=== PATIENT | female | born 1965 | race Caucasian/White ===

== ENCOUNTER 2017-10-31 10:40 | Outpatient (CLI) | payer MEDICARE, MEDICAID, SELFPAY ==
[2017-10-31 10:30] VITALS: BP 122/78; PULSE 68; RESP 20; TEMP 36.9; O2SAT 98
[2017-10-31 10:56] VITALS: BMI 40.4
[2017-10-31 11:39] LABS: Basophils # 0.1 K/mm3 (0-0.2); Basophils % 0.2 % (0.1-2.0); Eosinophils # 0.5 K/mm3 (0.0-0.4); Eosinophils % 2.2 % (0.1-12.0); Hematocrit 41.6 % (37.0-47.0); Lymphocytes # 0.7 K/mm3 (0.7-4.5); Lymphocytes % 3.3 K/mm3 (10-50); Mean Corpuscular HGB Conc 31.4 g/dL (31.8-35.4); Mean Corpuscular Hemoglobin 27.9 pg (27.0-31.2); Mean Corpuscular Volume 88.9 fl (81-99); Mean Platelet Volume 8.3 fl (7.4-10.4); Monocytes % 4.8 % (1.7-9.3); Neutrophils # 18.8 K/mm3 (1.8-7.8); Neutrophils % 89.5 % (37.0-80.0); Platelet Count 311 K/mm3 (142-424); Red Blood Count 4.67 M/mm3 (4.20-5.40); Red Cell Distribution Width 13.9 % (11.5-17.5)
[2017-10-31 11:40] LABS: White Blood Count 21.1 K/mm3 (4.8-10.8)
[2017-10-31 11:43] LABS: MANUAL DIFFERENTIAL MANUAL DIFFERENTIAL (MANUAL DIFF)
[2017-10-31 11:57] LABS: Alanine Aminotransferase 48 U/L (12-78); Albumin Level 3.3 gm/dL (3.4-5.0); Albumin/Globulin Ratio 0.8 (1.1-1.8); Alkaline Phosphatase 115 U/L (46-116); Anion Gap 19.3 mEq/L (5-15); Aspartate Amino Transferase 58 U/L (15-37); Bilirubin,Total 0.3 mg/dL (0.2-1.0); Blood Urea Nitrogen 13 mg/dL (7-18); Carbon Dioxide 22 mmol/L (21.0-32.0); Chloride 100 mmol/L (98-107); Creatinine Clearance Estimated 104 mL/min (0-300); Creatinine,Serum 1.01 mg/dL (0.55-1.02); Estimated Glomerular Filt Rate 57 ml/min (>60); GFR (African American) 69 ML/MIN (>60); Glucose 207 mg/dL (74-106); Potassium 4.3 mmoL/L (3.5-5.1); Sodium 137 mmol/L (136-145); Total Protein,Serum 7.3 gm/dL (6.4-8.2)
[2017-10-31 12:04] LABS: Eosinophils % 4 % (0-3); Lymphocytes % 5 % (10-50); Monocytes % 2 % (2-9); Neutrophils % 87 % (42-76); Total Cells Counted 100
[2017-10-31 12:06] LABS: RBC Morphology Normal
[2017-10-31 12:07] LABS: Platelet Estimate Normal
== END 2017-10-31 10:50 | disposition home or self-care (01) ==
LOC: INF 11:29
PROVIDERS: Family Provider Family Medicine; PCP Family Medicine; Visit Provider Internal Medicine
DX: C85.89 Other specified types of non-Hodgkin lymphoma, extranodal and solid organ sites (principal)
CPT/HCPCS: 80053; 85007; 85025

== ENCOUNTER 2017-11-12 12:51 | Outpatient (CLI) | payer MEDICARE, MEDICAID, SELFPAY ==
[2017-11-12 12:51] VITALS: BMI 34.1
[2017-11-12 13:39] LABS: Basophils # 0.1 K/mm3 (0-0.2); Basophils % 0.5 % (0.1-2.0); Eosinophils # 0.7 K/mm3 (0.0-0.4); Eosinophils % 4.2 % (0.1-12.0); Hematocrit 37.7 % (37.0-47.0); Hemoglobin 12.2 g/dL (12.2-16.2); Lymphocytes # 2.4 K/mm3 (0.7-4.5); Lymphocytes % 13.8 K/mm3 (10-50); Mean Corpuscular HGB Conc 32.3 g/dL (31.8-35.4); Mean Corpuscular Hemoglobin 27.9 pg (27.0-31.2); Mean Corpuscular Volume 86.4 fl (81-99); Mean Platelet Volume 7.8 fl (7.4-10.4); Monocytes # 0.5 K/mm3 (0.1-1.0); Neutrophils # 13.5 K/mm3 (1.8-7.8); Neutrophils % 78.6 % (37.0-80.0); Platelet Count 357 K/mm3 (142-424); Red Blood Count 4.37 M/mm3 (4.20-5.40); Red Cell Distribution Width 13.9 % (11.5-17.5); White Blood Count 17.2 K/mm3 (4.8-10.8)
[2017-11-12 13:42] LABS: MANUAL DIFFERENTIAL MANUAL DIFFERENTIAL (MANUAL DIFF)
[2017-11-12 13:57] LABS: Alanine Aminotransferase 19 U/L (12-78); Albumin Level 3.2 gm/dL (3.4-5.0); Albumin/Globulin Ratio 0.7 (1.1-1.8); Alkaline Phosphatase 86 U/L (46-116); Anion Gap 14.5 mEq/L (5-15); Aspartate Amino Transferase 17 U/L (15-37); Bilirubin,Total 0.2 mg/dL (0.2-1.0); Blood Urea Nitrogen 17 mg/dL (7-18); Calcium 7.9 mg/dL (8.5-10.1); Carbon Dioxide 26 mmol/L (21.0-32.0); Chloride 102 mmol/L (98-107); Creatinine Clearance Estimated 69 mL/min (0-300); Creatinine,Serum 1.33 mg/dL (0.55-1.02); Estimated Glomerular Filt Rate 42 ml/min (>60); GFR (African American) 50 ML/MIN (>60); Globulin 4.6 gm/dl (1.3-3.2); Glucose 119 mg/dL (74-106); Lipase 336 u/L (73-393); Potassium 3.5 mmoL/L (3.5-5.1); Sodium 139 mmol/L (136-145); Total Protein,Serum 7.8 gm/dL (6.4-8.2)
[2017-11-12 14:39] LABS: Eosinophils % 3 % (0-3); Lymphocytes % 11 % (10-50); Monocytes % 2 % (2-9); Neutrophils % 84 % (42-76); Platelet Estimate Normal; RBC Morphology Normal; Total Cells Counted 100
== END 2017-11-12 13:27 | disposition home or self-care (01) ==
LOC: INF 12:51
PROVIDERS: Family Provider Family Medicine; PCP Family Medicine; Visit Provider Internal Medicine
DX: C85.93 Non-Hodgkin lymphoma, unspecified, intra-abdominal lymph nodes (principal); Z45.2 Encounter for adjustment and management of vascular access device; R10.9 Unspecified abdominal pain; R11.2 Nausea with vomiting, unspecified
CPT/HCPCS: 80053; 83690; 85007; 85025; J1642

== ENCOUNTER 2017-11-26 08:45 | Outpatient (CLI) | payer MEDICARE, MEDICAID, SELFPAY ==
[2017-11-26 08:49] VITALS: BMI 35.2
[2017-11-26 09:16] LABS: Basophils # 0.1 K/mm3 (0-0.2); Basophils % 0.6 % (0.1-2.0); Eosinophils # 0.6 K/mm3 (0.0-0.4); Eosinophils % 6.4 % (0.1-12.0); Hematocrit 32.8 % (37.0-47.0); Hemoglobin 10.6 g/dL (12.2-16.2); Lymphocytes # 2.4 K/mm3 (0.7-4.5); Lymphocytes % 24.8 K/mm3 (10-50); Mean Corpuscular HGB Conc 32.4 g/dL (31.8-35.4); Mean Corpuscular Hemoglobin 28.3 pg (27.0-31.2); Mean Corpuscular Volume 87.4 fl (81-99); Mean Platelet Volume 7.4 fl (7.4-10.4); Monocytes # 0.5 K/mm3 (0.1-1.0); Monocytes % 5.5 % (1.7-9.3); Neutrophils # 6.2 K/mm3 (1.8-7.8); Neutrophils % 62.7 % (37.0-80.0); Platelet Count 263 K/mm3 (142-424); Red Blood Count 3.76 M/mm3 (4.20-5.40); Red Cell Distribution Width 14.3 % (11.5-17.5); White Blood Count 9.9 K/mm3 (4.8-10.8)
--- NOTE | 2017-11-26 09:21 | CT_ITS ---
CT abdomen pelvis w con CLINICAL INDICATION: lymphoma, abdominal pain, nausea and vomiting ITS.REASON: ABD LYMPHOMA, LEUKOCYSTOSIS, ABD PAIN, N/V ORDERING PHYSICIAN: Yue Bonilla PATIENT AGE: 52 years COMPARISON: 04/03/2017 TECHNIQUE: Axial images obtained with sagittal and coronal reformats. PROCEDURE: Oral Contrast: Redicat IV Contrast: 75 mL's of Isovue-370. FINDINGS: Lung bases are clear. Prior cholecystectomy with minimal prominence of the biliary radicles and common bile duct may be in response to the cholecystectomy change from 620 11/19/2017. Spleen, adrenal glands, and pancreas have an unremarkable appearance. There are few small lymph nodes present in the portal region this measures 2 x 1 cm and is unchanged. The kidneys have an unremarkable appearance. No obstructing renal or ureteral calculi. Unremarkable appendix. No intestinal obstruction or free air no evidence of diverticulitis. Postsurgical changes are present involving the anterior abdominal wall. There is narrowing of the rectosigmoid junction. This could be due to nondistention. There has been a prior hysterectomy. No pelvic mass or focal inflammatory change. Unremarkable appearing urinary bladder No acute bony anomalies. Bulging discs present at L5-S1. IMPRESSION: 1. No acute abdominal findings. 2. No change 2 x 1 cm portal lymph node 3. Narrowing of the rectosigmoid junction. This millimeters due to nondistention. Barium enema or sigmoidoscopy may aid to exclude a lesion at this area if clinically warranted.
[2017-11-26 09:31] LABS: Alanine Aminotransferase 27 U/L (12-78); Albumin Level 3.1 gm/dL (3.4-5.0); Albumin/Globulin Ratio 0.8 (1.1-1.8); Alkaline Phosphatase 94 U/L (46-116); Anion Gap 13.7 mEq/L (5-15); Aspartate Amino Transferase 14 U/L (15-37); Bilirubin,Total 0.1 mg/dL (0.2-1.0); Blood Urea Nitrogen 13 mg/dL (7-18); Calcium 7.9 mg/dL (8.5-10.1); Carbon Dioxide 26 mmol/L (21.0-32.0); Chloride 103 mmol/L (98-107); Creatinine Clearance Estimated 83 mL/min (0-300); Creatinine,Serum 1.11 mg/dL (0.55-1.02); Estimated Glomerular Filt Rate 51 ml/min (>60); GFR (African American) 62 ML/MIN (>60); Glucose 100 mg/dL (74-106); Lipase 203 u/L (73-393); Potassium 3.7 mmoL/L (3.5-5.1); Sodium 139 mmol/L (136-145); Total Protein,Serum 7.1 gm/dL (6.4-8.2)
--- NOTE | 2017-11-26 10:20 | HMH.ITSHM ---
TRAMADOL,OMEPRAZOLE,FUROSEIMIE 'AMITRIPTYLINE,ASPIRIN LORATADINE LOSARTIN POTASSIUM ATORVASTATIN ALENDRONATE METFORMIN LEVETIRACETAM MECLIZINE RIATRIPATN DICLOFENAC FLUTICASONE PROMETHAZINE ONDANSTERERAN
== END 2017-11-26 10:35 | disposition home or self-care (01) ==
LOC: INF 09:00
PROVIDERS: Family Provider Family Medicine; PCP Family Medicine; Visit Provider Nurse Practitioner
DX: C85.89 Other specified types of non-Hodgkin lymphoma, extranodal and solid organ sites (principal); R10.84 Generalized abdominal pain; R11.2 Nausea with vomiting, unspecified
CPT/HCPCS: 74177; 80053; 83690; 85025; J1642; Q9967

== ENCOUNTER 2017-12-22 12:17 | Outpatient (CLI) | payer MEDICARE, MEDICAID, SELFPAY ==
[2017-12-22 12:11] VITALS: BMI 35.6
[2017-12-22 12:37] LABS: Blood Urea Nitrogen 8 mg/dL (7-18); Creatinine Clearance Estimated 92 mL/min (0-300); Creatinine,Serum 1.04 mg/dL (0.55-1.02); Estimated Glomerular Filt Rate 55 ml/min (>60); GFR (African American) 67 ML/MIN (>60)
--- NOTE | 2017-12-22 13:45 | CT_ITS ---
CT chest w con Ordering Physician: Yue Bonilla Patient Age: 52 years: Female HISTORY: ITS.REASON: ABDOMINL LYMPHOMA S/P CHEMO, NEW PULMONARY NODULES Lymphoma. Follow-up following chemotherapy. TECHNIQUE: Helical CT scanning performed through the chest following to 5 cc Isovue-370. COMPARISON :March 2017. LEFT LUNG Progression of the left lower lobe nodule since March 2017. It now measures a just over 12 mm size and is clearly more evident on all views. (Axial slice 45, sagittal 84, coronal 53) and there Low-density pleural effusion versus some minimal fatty pleural thickening towards the posterior sulcus and left base. Stable feature. Mild left basal atelectasis at posterior sulcus. Right lung. Stable with no significant new findings. No significant nodules identified on the right. Previous studies noted questionable 3 mm nodule at the RML. This is faintly seen on axial slice 40 & appears stable since previous study 2016. Likely exaggerated by adjacent branching vessel . Not felt to be a significance . No mediastinal mass or adenopathy. Coronary artery calcification is evident LAD and circumflex artery. No pericardial effusion. Great vessels satisfactory. Port-A-Cath overlies left chest.. Borderline to mild airway thickening again noted mild interstitial coarsening throughout with early emphysematous changes suggested. But no axillary adenopathy. The uppermost abdomen. No prominent findings. Mild fatty changes of liver IMPRESSION: 1. Definite progression of left lower lobe nodule since March 2017 CT chest. This nodule now measures just over 12 mm maximally. 2. Remainder the chest stable. No acute findings Developing emphysematous changes No mediastinal nor hilar adenopathy coronary artery calcification.
== END 2017-12-22 13:15 | disposition home or self-care (01) ==
LOC: RAD 12:18
PROVIDERS: Family Provider Family Medicine; PCP Family Medicine; Visit Provider Nurse Practitioner
DX: R91.1 Solitary pulmonary nodule (principal); D64.9 Anemia, unspecified; K62.4 Stenosis of anus and rectum
CPT/HCPCS: 71260; 82565; 84520; J1642; Q9967

== ENCOUNTER → 2018-01-20 09:33 | Outpatient (CLI) | payer MEDICARE, MEDICAID, SELFPAY ==
--- NOTE | 2018-01-20 09:38 | MM_ITS ---
MM Dig screening mamm BI w/CAD CAD Screening COMPARISON: Digital mammograms 04/16/2017 and 04/05/2016 INDICATION: There is a history breast cancer patient's mother and 2 maternal aunts. TECHNIQUE: Standard CC and MLO images were obtained. R2 CAD reviewed. FINDINGS: The breasts are composed primarily of fat with minimal scattered fibroglandular densities in each breast. There is arterial calcification in each breast as noted previously. There are scattered benign-appearing calcifications in each breast. There is no suspicious lesion and there are no suspicious microcalcifications. The Mediport catheter is again seen overlying the axillary tail left breast. IMPRESSION: Fibrofatty parenchyma with no suspicious lesion seen BI-RADS Category: 2 Benign Finding(s) RECOMMENDED FOLLOW-UP: 1YR - 1 YEAR FOLLOW-UP (A letter has been sent to the patient regarding results of the study.)
== END ==
PROVIDERS: Family Provider Family Medicine; PCP Family Medicine; Visit Provider Internal Medicine
DX: Z12.31 Encounter for screening mammogram for malignant neoplasm of breast (principal)
CPT/HCPCS: 77067

== ENCOUNTER 2018-01-20 10:05 | Outpatient (CLI) | payer MEDICARE, MEDICAID, SELFPAY | END 2018-01-20 10:20 | disposition home or self-care (01) | LOC: INF 16:28 | PROVIDERS: Family Provider Family Medicine; PCP Family Medicine; Visit Provider Internal Medicine | DX: Z45.2 Encounter for adjustment and management of vascular access device (principal); Z12.31 Encounter for screening mammogram for malignant neoplasm of breast | CPT/HCPCS: 77067; 96523; J1642 ==

== ENCOUNTER → 2018-02-11 10:00 | Outpatient (CLI) | payer MEDICARE, MEDICAID, SELFPAY ==
[2018-02-11 10:00] VITALS: BP 118/74; PULSE 104; RESP 20; TEMP 36.8; O2SAT 97
[2018-02-11 10:02] VITALS: BMI 35.6
[2018-02-11 10:30] VITALS: BP 118/74; PULSE 104; RESP 18; TEMP 36.8; O2SAT 97
[2018-02-11 10:40] LABS: Basophils # 0.1 K/mm3 (0-0.2); Basophils % 0.5 % (0.1-2.0); Eosinophils # 0.4 K/mm3 (0.0-0.4); Eosinophils % 4.4 % (0.1-12.0); Hematocrit 33.4 % (37.0-47.0); Hemoglobin 10.7 g/dL (12.2-16.2); Lymphocytes # 1.6 K/mm3 (0.7-4.5); Lymphocytes % 15.6 K/mm3 (10-50); Mean Corpuscular HGB Conc 32.1 g/dL (31.8-35.4); Mean Corpuscular Hemoglobin 27.3 pg (27.0-31.2); Mean Platelet Volume 7.6 fl (7.4-10.4); Monocytes # 0.5 K/mm3 (0.1-1.0); Monocytes % 4.9 % (1.7-9.3); Neutrophils # 7.5 K/mm3 (1.8-7.8); Neutrophils % 74.7 % (37.0-80.0); Platelet Count 254 K/mm3 (142-424); Red Blood Count 3.93 M/mm3 (4.20-5.40)
[2018-02-11 10:43] LABS: Anion Gap 14.9 mEq/L (5-15); Blood Urea Nitrogen 18 mg/dL (7-18); Carbon Dioxide 27 mmol/L (21.0-32.0); Chloride 101 mmol/L (98-107); Creatinine Clearance Estimated 111 mL/min (0-300); Creatinine,Serum 0.86 mg/dL (0.55-1.02); Estimated Glomerular Filt Rate 69 ml/min (>60); GFR (African American) 83 ML/MIN (>60); Glucose 132 mg/dL (74-106); Potassium 3.9 mmoL/L (3.5-5.1); Sodium 139 mmol/L (136-145)
[2018-02-11 10:53] LABS: INR 1.01 (0.9-1.1); Prothrombin Time 10.9 seconds (9.4-11.8)
[2018-02-11 10:56] LABS: Activated Partial Thrombo Time 65.9 seconds (23.6-34.0)
== END ==
PROVIDERS: Family Provider Family Medicine; PCP Family Medicine; Visit Provider Internal Medicine
DX: C83.30 Diffuse large B-cell lymphoma, unspecified site (principal); R91.8 Other nonspecific abnormal finding of lung field; R06.02 Shortness of breath; Z00.00 Encounter for general adult medical examination without abnormal findings
CPT/HCPCS: 80048; 85025; 85610; 85730; J1642

== ENCOUNTER 2018-03-25 10:40 | Outpatient (CLI) | payer MEDICARE, SELFPAY ==
[2018-03-25 11:02] VITALS: BMI 34.8
[2018-03-25 11:11] LABS: Basophils % 0.4 % (0.1-2.0); Eosinophils # 0.7 K/mm3 (0.0-0.4); Eosinophils % 6.2 % (0.1-12.0); Hematocrit 37.1 % (37.0-47.0); Hemoglobin 11.4 g/dL (12.2-16.2); Lymphocytes # 1.8 K/mm3 (0.7-4.5); Lymphocytes % 15.5 K/mm3 (10-50); Mean Corpuscular HGB Conc 30.8 g/dL (31.8-35.4); Mean Corpuscular Hemoglobin 25.6 pg (27.0-31.2); Mean Corpuscular Volume 83.3 fl (81-99); Mean Platelet Volume 7.4 fl (7.4-10.4); Monocytes # 0.5 K/mm3 (0.1-1.0); Neutrophils # 8.4 K/mm3 (1.8-7.8); Neutrophils % 73.9 % (37.0-80.0); Platelet Count 328 K/mm3 (142-424); Red Blood Count 4.46 M/mm3 (4.20-5.40); Red Cell Distribution Width 14.2 % (11.5-17.5); White Blood Count 11.4 K/mm3 (4.8-10.8)
[2018-03-25 11:19] LABS: Alanine Aminotransferase 15 U/L (12-78); Albumin Level 3.2 gm/dL (3.4-5.0); Albumin/Globulin Ratio 0.7 (1.1-1.8); Alkaline Phosphatase 90 U/L (46-116); Anion Gap 17.4 mEq/L (5-15); Aspartate Amino Transferase 11 U/L (15-37); Bilirubin,Total 0.1 mg/dL (0.2-1.0); Blood Urea Nitrogen 23 mg/dL (7-18); Calcium 8.6 mg/dL (8.5-10.1); Carbon Dioxide 25 mmol/L (21.0-32.0); Chloride 102 mmol/L (98-107); Creatinine Clearance Estimated 64 mL/min (0-300); Creatinine,Serum 1.45 mg/dL (0.55-1.02); Estimated Glomerular Filt Rate 38 ml/min (>60); GFR (African American) 46 ML/MIN (>60); Globulin 4.4 gm/dl (1.3-3.2); Glucose 122 mg/dL (74-106); Potassium 3.4 mmoL/L (3.5-5.1); Sodium 141 mmol/L (136-145); Total Protein,Serum 7.6 gm/dL (6.4-8.2)
== END 2018-03-25 10:55 | disposition home or self-care (01) ==
LOC: INF 11:34
PROVIDERS: Family Provider Family Medicine; PCP Family Medicine; Visit Provider Internal Medicine
DX: C85.90 Non-Hodgkin lymphoma, unspecified, unspecified site (principal)
CPT/HCPCS: 80053; 85025; J1642

== ENCOUNTER → 2018-03-25 12:39 | Outpatient (CLI) | payer MEDICARE, MEDICAID, SELFPAY ==
[2018-03-25 12:42] LABS: Microscopic, Urine URINE MICROSCOPIC (MICROSCOPIC)
[2018-03-25 12:58] LABS: Appearance,Urine CLEAR (Clear); Bilirubin,Urine Negative (Negative); Blood, Urine Negative (Negative); Color,Urine YELLOW (Yellow); Glucose,Urine (UA) Negative (Negative); Ketones,Urine Negative (Negative); Leukocyte Esterase,Urine 1+ (Negative); Nitrate,Urine Negative (Negative); PH,Urine 5.5 (5.0-8.5); Protein,Urine Negative (Negative); Urobilinogen,Urine 0.2 EU/dl (0.2)
[2018-03-25 13:50] LABS: Bacteria,Urine 1+ /lpf
== END ==
PROVIDERS: Visit Provider Nurse Practitioner
DX: R11.2 Nausea with vomiting, unspecified (principal); D72.829 Elevated white blood cell count, unspecified; N28.9 Disorder of kidney and ureter, unspecified
CPT/HCPCS: 80053; 81001; 85025; 87086; J1642

== ENCOUNTER 2018-04-29 11:20 | Outpatient (CLI) | payer MEDICARE, MEDICAID, SELFPAY ==
[2018-04-29 11:41] VITALS: BMI 34.1
[2018-04-29 12:01] LABS: Basophils # 0.1 K/mm3 (0-0.2); Basophils % 0.4 % (0.1-2.0); Eosinophils # 0.7 K/mm3 (0.0-0.4); Eosinophils % 6.1 % (0.1-12.0); Hemoglobin 10.9 g/dL (12.2-16.2); Lymphocytes # 1.3 K/mm3 (0.7-4.5); Mean Corpuscular HGB Conc 31.1 g/dL (31.8-35.4); Mean Corpuscular Hemoglobin 26.3 pg (27.0-31.2); Mean Corpuscular Volume 84.4 fl (81-99); Mean Platelet Volume 7.4 fl (7.4-10.4); Monocytes # 0.5 K/mm3 (0.1-1.0); Neutrophils % 78.4 % (37.0-80.0); Platelet Count 282 K/mm3 (142-424); Red Blood Count 4.14 M/mm3 (4.20-5.40); Red Cell Distribution Width 15.5 % (11.5-17.5); White Blood Count 11.4 K/mm3 (4.8-10.8)
[2018-04-29 12:13] LABS: Alanine Aminotransferase 17 U/L (12-78); Albumin Level 3.2 gm/dL (3.4-5.0); Albumin/Globulin Ratio 0.7 (1.1-1.8); Alkaline Phosphatase 85 U/L (46-116); Anion Gap 16.6 mEq/L (5-15); Aspartate Amino Transferase 11 U/L (15-37); Bilirubin,Total 0.2 mg/dL (0.2-1.0); Blood Urea Nitrogen 16 mg/dL (7-18); Carbon Dioxide 25 mmol/L (21.0-32.0); Chloride 98 mmol/L (98-107); Creatinine Clearance Estimated 66 mL/min (0-300); Creatinine,Serum 1.38 mg/dL (0.55-1.02); Estimated Glomerular Filt Rate 40 ml/min (>60); GFR (African American) 48 ML/MIN (>60); Globulin 4.4 gm/dl (1.3-3.2); Glucose 126 mg/dL (74-106); Potassium 3.6 mmoL/L (3.5-5.1); Sodium 136 mmol/L (136-145); Total Protein,Serum 7.6 gm/dL (6.4-8.2)
== END 2018-04-29 11:40 | disposition home or self-care (01) ==
LOC: INF 11:34
PROVIDERS: Family Provider Family Medicine; PCP Family Medicine; Visit Provider Internal Medicine
DX: C85.90 Non-Hodgkin lymphoma, unspecified, unspecified site (principal); R11.2 Nausea with vomiting, unspecified; N18.9 Chronic kidney disease, unspecified; D72.829 Elevated white blood cell count, unspecified
CPT/HCPCS: 80053; 85025; J1642

== ENCOUNTER 2018-06-12 10:35 | Outpatient (CLI) | payer MEDICARE, MEDICAID, SELFPAY | END 2018-06-12 11:05 | disposition home or self-care (01) | LOC: INF 10:45 | PROVIDERS: PCP Family Medicine; Visit Provider Internal Medicine | DX: C85.80 Other specified types of non-Hodgkin lymphoma, unspecified site (principal); Z45.2 Encounter for adjustment and management of vascular access device | CPT/HCPCS: 96523; J1642 ==

== ENCOUNTER 2018-07-10 17:28 | Outpatient (CLI) | payer MEDICARE, MEDICAID, SELFPAY | END 2018-07-10 17:35 | disposition home or self-care (01) | LOC: INF 17:29 | PROVIDERS: Visit Provider Internal Medicine | DX: Z45.2 Encounter for adjustment and management of vascular access device (principal); C85.90 Non-Hodgkin lymphoma, unspecified, unspecified site | CPT/HCPCS: 96523; J1642 ==

== ENCOUNTER 2018-09-17 09:13 | Outpatient (CLI) | payer MEDICARE, MEDICAID, SELFPAY ==
[2018-09-17 09:15] VITALS: BMI 34.1
[2018-09-17 09:36] LABS: Basophils # 0.1 K/mm3 (0-0.2); Basophils % 0.4 % (0.1-2.0); Eosinophils # 0.7 K/mm3 (0.0-0.4); Hematocrit 33.5 % (37.0-47.0); Hemoglobin 10.3 g/dL (12.2-16.2); Lymphocytes # 1.7 K/mm3 (0.7-4.5); Lymphocytes % 12.9 % (10-50); Mean Corpuscular HGB Conc 30.9 g/dL (31.8-35.4); Mean Corpuscular Hemoglobin 25.9 pg (27.0-31.2); Mean Corpuscular Volume 83.9 fl (81-99); Mean Platelet Volume 6.6 fl (7.4-10.4); Monocytes # 0.5 K/mm3 (0.1-1.0); Monocytes % 3.7 % (1.7-9.3); Neutrophils # 10.3 K/mm3 (1.8-7.8); Neutrophils % 78.1 % (37.0-80.0); Platelet Count 348 K/mm3 (142-424); Red Blood Count 3.99 M/mm3 (4.20-5.40); Red Cell Distribution Width 15.7 % (11.5-17.5); White Blood Count 13.2 K/mm3 (4.8-10.8)
[2018-09-17 09:51] LABS: Alanine Aminotransferase 29 U/L (12-78); Albumin Level 3.3 gm/dL (3.4-5.0); Albumin/Globulin Ratio 0.7 (1.1-1.8); Alkaline Phosphatase 90 U/L (46-116); Aspartate Amino Transferase 16 U/L (15-37); Bilirubin,Total 0.1 mg/dL (0.2-1.0); Blood Urea Nitrogen 14 mg/dL (7-18); Calcium 8.5 mg/dL (8.5-10.1); Carbon Dioxide 27 mmol/L (21.0-32.0); Chloride 100 mmol/L (98-107); Creatinine Clearance Estimated 77 mL/min (50-200); Creatinine,Serum 1.17 mg/dL (0.55-1.02); Estimated Glomerular Filt Rate 48 ml/min (>60); GFR (African American) 58 ML/MIN (>60); Globulin 4.6 gm/dl (1.3-3.2); Glucose 123 mg/dL (74-106); Sodium 139 mmol/L (136-145); Total Protein,Serum 7.9 gm/dL (6.4-8.2)
== END 2018-09-17 09:30 | disposition home or self-care (01) ==
LOC: INF 09:13
PROVIDERS: Visit Provider Internal Medicine Medical Oncology
DX: C85.93 Non-Hodgkin lymphoma, unspecified, intra-abdominal lymph nodes (principal)
CPT/HCPCS: 80053; 85025; J1642

== ENCOUNTER 2018-10-29 09:46 | Outpatient (CLI) | payer MEDICARE, MEDICAID, SELFPAY | END 2018-10-29 09:55 | disposition home or self-care (01) | LOC: INF 09:46 | PROVIDERS: Visit Provider Internal Medicine Medical Oncology | DX: C85.90 Non-Hodgkin lymphoma, unspecified, unspecified site (principal); Z45.2 Encounter for adjustment and management of vascular access device | CPT/HCPCS: 96523; J1642 ==

== ENCOUNTER 2018-12-16 10:08 | Outpatient (CLI) | payer MEDICARE, MEDICAID, SELFPAY | END 2018-12-16 10:10 | disposition home or self-care (01) | LOC: INF 10:09 | PROVIDERS: Visit Provider Internal Medicine Medical Oncology | DX: Z45.2 Encounter for adjustment and management of vascular access device (principal) | CPT/HCPCS: 96523; J1642 ==

== ENCOUNTER 2019-01-20 09:01 | Outpatient (CLI) | payer MEDICARE, MEDICAID, SELFPAY | END 2019-01-20 09:23 | disposition home or self-care (01) | LOC: INF 09:01 | PROVIDERS: Visit Provider Internal Medicine Medical Oncology | DX: Z45.2 Encounter for adjustment and management of vascular access device (principal) | CPT/HCPCS: 96523; J1642 ==

== ENCOUNTER 2019-02-26 09:44 | Outpatient (CLI) | payer MEDICARE, MEDICAID, SELFPAY | END 2019-02-26 09:55 | disposition home or self-care (01) | LOC: INF 09:44 | PROVIDERS: Visit Provider Internal Medicine Medical Oncology | DX: Z45.2 Encounter for adjustment and management of vascular access device (principal) | CPT/HCPCS: 96523; J1642 ==

== ENCOUNTER 2019-04-07 08:41 | Outpatient (CLI) | payer MEDICARE, MEDICAID, SELFPAY ==
[2019-04-07 08:58] VITALS: BP 118/77; PULSE 87; RESP 18; TEMP 36.6; O2SAT 98
[2019-04-07 09:37] VITALS: BMI 34.1
[2019-04-07 09:45] LABS: Basophils # 0.1 K/mm3 (0-0.2); Basophils % 0.6 % (0.1-2.0); Eosinophils # 0.5 K/mm3 (0.0-0.4); Hematocrit 33.9 % (37.0-47.0); Hemoglobin 10.1 g/dL (12.2-16.2); Lymphocytes # 1.7 K/mm3 (0.7-4.5); Lymphocytes % 11.1 % (10-50); Mean Corpuscular HGB Conc 29.7 g/dL (31.8-35.4); Mean Corpuscular Hemoglobin 24.9 pg (27.0-31.2); Mean Corpuscular Volume 83.8 fl (81-99); Mean Platelet Volume 7.1 fl (7.4-10.4); Monocytes # 0.4 K/mm3 (0.1-1.0); Monocytes % 2.9 % (1.7-9.3); Neutrophils # 12.3 K/mm3 (1.8-7.8); Neutrophils % 82.3 % (37.0-80.0); Platelet Count 463 K/mm3 (142-424); Red Blood Count 4.05 M/mm3 (4.20-5.40); White Blood Count 14.9 K/mm3 (4.8-10.8)
[2019-04-07 09:58] LABS: Alanine Aminotransferase 13 U/L (12-78); Albumin Level 2.9 gm/dL (3.4-5.0); Albumin/Globulin Ratio 0.6 (1.1-1.8); Alkaline Phosphatase 70 U/L (46-116); Anion Gap 18.5 mEq/L (5-15); Aspartate Amino Transferase 11 U/L (15-37); Bilirubin,Total 0.1 mg/dL (0.2-1.0); Blood Urea Nitrogen 13 mg/dL (7-18); Calcium 8.4 mg/dL (8.5-10.1); Carbon Dioxide 23 mmol/L (21.0-32.0); Chloride 101 mmol/L (98-107); Creatinine Clearance Estimated 77 mL/min (50-200); Creatinine,Serum 1.17 mg/dL (0.55-1.02); Estimated Glomerular Filt Rate 48 ml/min (>60); GFR (African American) 58 ML/MIN (>60); Globulin 4.5 gm/dl (1.3-3.2); Glucose 91 mg/dL (74-106); Lactate Dehydrogenase 151 U/L (82-234); Potassium 3.5 mmoL/L (3.5-5.1); Sodium 139 mmol/L (136-145); Total Protein,Serum 7.4 gm/dL (6.4-8.2)
[2019-04-07 16:44] LABS: Ferritin 9 ng/mL (8-388); Thyroid Stimulating Hormone 1.75 uIU/ml (0.358-3.740)
[2019-04-09 11:34] LABS: Vitamin B12 236 pg/mL (232-1245)
[2019-04-09 14:18] LABS: Iron 30 ug/dL (27-159); UIBC 298 ug/dL (131-425)
[2019-04-09 18:13] LABS: Iron Saturation 9 % (15-55)
[2019-04-10 18:35] LABS: Folate 4.3 ng/mL (>3.0)
== END 2019-04-07 09:35 | disposition home or self-care (01) ==
LOC: INF 08:41
PROVIDERS: Nurse Practitioner; Visit Provider Internal Medicine Medical Oncology
DX: C83.30 Diffuse large B-cell lymphoma, unspecified site (principal); D64.9 Anemia, unspecified; R53.83 Other fatigue; R51 Headache
CPT/HCPCS: 80053; 82607; 82728; 82746; 83540; 83550; 83615; 84443; 85025; J1642

== ENCOUNTER 2019-05-05 09:40 | Outpatient (CLI) | payer MEDICARE, MEDICAID, SELFPAY | END 2019-05-05 09:55 | disposition home or self-care (01) | LOC: INF 09:49 | PROVIDERS: Visit Provider Internal Medicine Medical Oncology | DX: Z45.2 Encounter for adjustment and management of vascular access device (principal) | CPT/HCPCS: 96523; J1642 ==

== ENCOUNTER 2019-06-01 08:46 | Inpatient (IN) ==
--- NOTE | 2019-06-01 09:15 | Emergency Department Note ---
ED Disposition Clinical Impression: Seizure disorder, Poorly controlled diabetes mellitus, Sepsis Disposition: Admitted As Inpatient Condition on Discharge: Serious Referrals: Spenser Gee [Primary Care Provider] - - Critical Care Critical Care Time: No Attestation: On 06/01/19, the high probability of a clinically significant, sudden or life threatening deterioration of the following system(s) required my full and direct attention, intervention and personal management. The time I documented below is in addition to time spent performing reported procedures but includes the following listed in this critical care notation. Medical Decision Making - Domenico Inquiry Pt receiving controlled substance: No Domenico was queried for this patient: No Vital Signs: 06/01/19 08:48 06/01/19 09:07 06/01/19 09:57 Temperature 98.1 F Temperature Source Oral Pulse Rate [Right Brachial] 148 H 90 156 H Respiratory Rate 19 Blood Pressure [Right Arm] 77/51 L 133/74 85/50 L Blood Pressure Mean [Right Arm] 59 93 61 Blood Pressure Source [Right Arm] Manual Cuff/ Doppler Automatic Cuff Automatic Cuff Blood Pressure Position [Right Arm] Supine Sitting Supine 02 Sat by Pulse Oximetry 95 97 95 Oxygen Delivery Method Nasal Cannula Room Air Nasal Cannula Oxygen Flow Rate (LPM) 2 2 06/01/19 10:33 06/01/19 10:45 06/01/19 11:05 Temperature Temperature Source Pulse Rate [Right Brachial] 144 H 144 H 145 H Respiratory Rate Blood Pressure [Right Arm] 94/60 L 104/64 L 104/71 L Blood Pressure Mean [Right Arm] 71 77 82 Blood Pressure Source [Right Arm] Automatic Cuff Automatic Cuff Automatic Cuff Blood Pressure Position [Right Arm] Supine Supine Supine 02 Sat by Pulse Oximetry 90 L 90 L Oxygen Delivery Method Nasal Cannula Nasal Cannula Oxygen Flow Rate (LPM) 2 2 06/01/19 11:37 06/01/19 11:53 Temperature Temperature Source Pulse Rate [Right Brachial] 148 H 145 H Respiratory Rate Blood Pressure [Right Arm] 117/74 112/79 Blood Pressure Mean [Right Arm] 88 90 Blood Pressure Source [Right Arm] Automatic Cuff Automatic Cuff Blood Pressure Position [Right Arm] Sitting Supine 02 Sat by Pulse Oximetry 90 L 90 L Oxygen Delivery Method Nasal Cannula Nasal Cannula Oxygen Flow Rate (LPM) 2 2 - Lab Data Lab Results 06/01/19 09:00: WBC 24.3 H*, RBC 5.05, Hgb 13.1, Hct 49.7 H, MCV 98.6, MCH 25.9 L, MCHC 26.3 L, RDW 17.5, Plt Count 680 H, MPV 7.7, Neut % (Auto) 69.3, Lymph % (Auto) 25.4, [place] % (Auto) 4.0, Eos % (Auto) 0.4, Baso % (Auto) 0.9, Neut # (Auto) 16.9 H, Lymph # (Auto) 6.2 H, [place] # (Auto) 1.0, Eos # (Auto) 0.1, Baso # (Auto) 0.2, Total Counted 100, Neutrophils % (Manual) 65, Band Neutrophils % 1.0, Lymphocytes % (Manual) 32, Monocytes % (Manual) 1 L, Eosinophils % (Manual) 1, Platelet Estimate Clumped, Hypochromasia 1+, Anisocytosis 1+, Macrocytosis 1+ 06/01/19 09:00: Sodium 144, Potassium 3.6, Chloride 92 L, Carbon Dioxide 9 L*, Anion Gap 46.6 H, BUN 13, Creatinine 2.24 H, Estimated Creat Clear 45, Estimated GFR 23 L, Est GFR ( Amer) 27 L, Glucose 358 H, Calcium 9.3, Total Bilirubin 0.1 L, AST 15, ALT 12, Alkaline Phosphatase 100, Troponin I 0.03, Total Protein 8.9 H, Albumin 3.3 L, Globulin 5.6 H, Albumin/Globulin Ratio 0.6 L 06/01/19 10:21: Urine Color Yellow, Urine Appearance Clear, Urine pH 5.5, Ur Specific [place] >= 1.030, Urine Protein 2+, Urine Glucose (UA) Negative, Urine Ketones 2+, Urine Blood Negative, Urine Nitrate Negative, Urine Bilirubin Negative, Urine Urobilinogen 0.2, Ur Leukocyte Esterase Negative, Urine RBC Occasional, Urine WBC 3-5, Ur Squamous Epith Cells 10-20, Urine Bacteria 1+ 06/01/19 11:03: Lactate 10.4 H Result diagrams: 06/01/19 09:00 06/01/19 09:00 Orders (Tests/Meds): ED MEDICATIONS Generic Name Dose Route Start Last Admin Trade Name Freq PRN Reason Stop Dose Admin Sodium Chloride 1,000 mls @ 999 mls/hr 06/01/19 11:45 Sod Chlor 0.9% 1000ml Bag IV 06/01/19 12:45 .Q1H1M GLEN Ceftriaxone Sodium 1 gm/ 50 mls @ 100 mls/hr 06/01/19 11:45 06/01/19 11:50 Sodium Chloride IV 06/15/19 11:44 100 mls/hr Q24H GLEN Administration Protocol Sodium Chloride 10 ml 06/01/19 10:38 Saline Flush 10ml Syringe IV 07/01/19 10:37 NEEDED PRN Maintain IV Site Sodium Chloride 2 ml 06/01/19 10:38 Saline Flush 10ml Syringe IV 07/01/19 10:37 NEEDED PRN to Dilute Lorazepam inj Discontinued Medications Generic Name Dose Route Start Last Admin Trade Name Freq PRN Reason Stop Dose Admin Diltiazem HCl 15 mg 06/01/19 09:40 06/01/19 10:07 Cardizem 125mg/25ml Vial IV 06/01/19 09:41 15 mg ONCE ONE Administration Diltiazem HCl 10 mg 06/01/19 10:05 06/01/19 10:07 Cardizem 125mg/25ml Vial IV 06/01/19 10:06 10 mg ONCE ONE Administration Sodium Chloride 1,000 mls @ 999 mls/hr 06/01/19 09:15 06/01/19 09:15 Sod Chlor 0.9% 1000ml Bag IV 06/01/19 10:15 999 mls/hr .Q1H1M ONE Administration Sodium Chloride 1,000 mls @ 999 mls/hr 06/01/19 10:10 06/01/19 10:10 Sod Chlor 0.9% 1000ml Bag IV 06/01/19 11:10 999 mls/hr .Q1H1M ONE Administration Lorazepam 2 mg 06/01/19 10:01 06/01/19 10:40 Ativan 2mg/Ml Vial IV 06/01/19 10:02 2 mg ONCE ONE Administration Ondansetron HCl 4 mg 06/01/19 11:50 06/01/19 11:51 Zofran 4mg/2ml Vial IV 06/01/19 11:51 4 mg ONCE ONE Administration ORDERS Category Date Time Status CXR --portable [XR chest portable] Stat Exams 06/01/19 10:59 Taken Levetiracetam (Keppra) Stat Lab 06/01/19 09:00 Received Blood Culture Stat Micro 06/01/19 11:03 Received General Adult HPI - General Chief complaint: Neuro Symptoms/Deficit Stated complaint: stroke alert Time Seen by Provider: 06/01/19 09:11 Source of Information: Patient Limitations: Altered Mental Status - History of Present Illness HPI narrative: The patient is a 54-year-old female who has had serious problems in the past with mentation. The patient is in a [facility] institution. Patient had a large stroke sometime ago. The patient had a seizure approximately 2 weeks ago. The patient had a seizure this morning while her was standing and another while she was in the emergency room. Patient is on medications, Keppra, for procedure of the shoulder but this seems poorly controlled. The patient comes in and is diaphoretic and seizing. Onset (ago): hour(s) - Related Data Home Medications Medication Instructions Recorded Confirmed alendronate 35 mg tablet 35 mg PO QWEEK 11/12/17 06/01/19 amitriptyline 50 mg tablet 100 mg PO QHS tab 11/12/17 06/01/19 aspirin 325 mg tablet 325 mg PO QDAY 11/12/17 06/01/19 atorvastatin 40 mg tablet 40 mg PO QDAY 11/12/17 06/01/19 furosemide 40 mg tablet 20 mg PO QDAY 11/12/17 06/01/19 levetiracetam 750 mg tablet 750 mg PO Q12H 11/12/17 06/01/19 losartan 50 mg tablet 50 mg PO QDAY 11/12/17 06/01/19 meclizine 12.5 mg tablet 12.5 mg PO TID tab 11/12/17 06/01/19 metformin 500 mg tablet 1,000 mg PO BID 11/12/17 06/01/19 omeprazole 20 mg capsule,delayed 20 mg PO QDAY 11/12/17 06/01/19 release tramadol 50 mg tablet 50 mg PO BID tab 11/12/17 06/01/19 cholecalciferol (vitamin D3) 1,000 1,000 unit PO DAILY 02/11/18 06/01/19 unit capsule fluoxetine 20 mg capsule 10 mg PO DAILY 09/17/18 06/01/19 Ondansetron HCl [Ondansetron 8mg 8 mg PO Q6HP PRN 05/05/19 06/01/19 Tablet] Promethazine HCl [Phenergan 25mg 25 mg PO Q6H PRN 05/05/19 06/01/19 tab] Propranolol HCl 10 mg PO BID 05/05/19 06/01/19 SUMAtriptan succinate [Sumatriptan 50 mg PO Q6 PRN 05/05/19 06/01/19 Succinate] Allergies Allergy/AdvReac Type Severity Reaction Status Date / Time tetanus and diphtheria Allergy Unknown Verified 04/07/19 09:42 toxoids [TETANUS & DIPHTHERIA TOXOIDS] [facility] History - Hepatitis A Screen Attestation statement:: This patient has been screened for Hepatitis A risk factors. Medical History: Reports:: Cancer, Chronic Obstructive Pulmonary Disease (COPD), Diabetes Mellitus Type 2, Hyperlipidemia, Seizures Other Medical History: Reports: Radiation Therapy Laterality Cases: Other Surgeries: Yes: Hernia Repair, Hysterectomy-Total, Hysterectomy-Partial Amputation: No Fractures: No Comment: ovarian cyst removal, gallbladder, bladder surgery - Social History Smoking Status: Former smoker #Yrs smoked (if former smoker): 30 Alcohol Intake: never Substance Use Type: denies use Occupational Status: disabled Housing: other Household Members: spouse, children Family Hx:: Cancer ROS Obtained: Yes All systems reviewed & no additional complaints Physical Exam - General General appearance: lethargic - Chest Chest inspection: Present: normal inspection - Respiratory Respiratory exam: Present: normal lung sounds bilaterally - Cardiovascular Cardiovascular exam: Present: regular rate - Neurological Exam Neurological exam: Present: other (Patient had active seizures on admission. Ativan was given. Patient's Keppra will be increased. The patient is postictal at this time)
[2019-06-01 09:25] LABS: Basophils # 0.2 K/mm3 (0-0.2); Basophils % 0.9 % (0.1-2.0); Eosinophils # 0.1 K/mm3 (0.0-0.4); Eosinophils % 0.4 % (0.1-12.0); Hematocrit 49.7 % (37.0-47.0); Hemoglobin 13.1 g/dL (12.2-16.2); Lymphocytes # 6.2 K/mm3 (0.7-4.5); Lymphocytes % 25.4 % (10-50); Mean Corpuscular HGB Conc 26.3 g/dL (31.8-35.4); Mean Corpuscular Volume 98.6 fl (81-99); Mean Platelet Volume 7.7 fl (7.4-10.4); Neutrophils # 16.9 K/mm3 (1.8-7.8); Neutrophils % 69.3 % (37.0-80.0); Red Blood Count 5.05 M/mm3 (4.20-5.40); Red Cell Distribution Width 17.5 % (11.5-17.5); White Blood Count 24.3 K/mm3 (4.8-10.8)
[2019-06-01 09:39] LABS: Albumin Level 3.3 gm/dL (3.4-5.0); Albumin/Globulin Ratio 0.6 (1.1-1.8); Anion Gap 46.6 mEq/L (5-15); Bilirubin,Total 0.1 mg/dL (0.2-1.0); Calcium 9.3 mg/dL (8.5-10.1); Globulin 5.6 gm/dl (1.3-3.2); Total Protein,Serum 8.9 gm/dL (6.4-8.2)
[2019-06-01 09:42] LABS: Platelet Count 680 K/mm3 (142-424)
[2019-06-01 09:45] LABS: Anisocytosis 1+; Eosinophils % 1 % (0-3); Hypochromasia 1+; Lymphocytes % 32 % (10-50); Macrocytosis 1+; Monocytes % 1 % (2-9); Neutrophils % 65 % (42-76); Total Cells Counted 100
[2019-06-01 10:31] LABS: Appearance,Urine CLEAR (Clear); Blood, Urine Negative (Negative); Color,Urine YELLOW (Yellow); Glucose,Urine (UA) Negative (Negative); Ketones,Urine 2+ (Negative); Leukocyte Esterase,Urine Negative (Negative); Microscopic, Urine URINE MICROSCOPIC (MICROSCOPIC); PH,Urine 5.5 (5.0-8.5); Protein,Urine 2+ (Negative); Specific Gravity, Urine >= 1.030 (1.005-1.030); Urobilinogen,Urine 0.2 EU/dl (0.2)
[2019-06-01 10:48] LABS: Bacteria,Urine 1+ /lpf; Bilirubin,Urine Negative (Negative); RBC,Urine Occasional #/hpf (0-3)
--- NOTE | 2019-06-01 12:26 | Sepsis Event Note ---
Tissue Perfusion Evaluation Sepsis Re-Evaluation Performed: Yes Date Performed: 06/01/19 Time Performed: 12:24 Sepsis Follow-Up: Yes: Respiratory exam, Cardiovascular exam, Capillary refill, Peripheral pulse strength, Peripheral pulse location, Skin exam, Vital Signs (Hyperglycemia, seizure disorder poorly controlled, blood count due seizure) Most Recent Vital Signs: Temperature 98.1 F 06/01/19 09:07 Temperature Source Oral 06/01/19 09:07 Pulse Rate 149 H 06/01/19 12:18 Respiratory Rate 19 06/01/19 09:07 Blood Pressure 110/80 06/01/19 12:18 Blood Pressure Mean 90 06/01/19 12:18 Blood Pressure Source Automatic Cuff 06/01/19 12:18 Blood Pressure Position Sitting 06/01/19 12:18 02 Sat by Pulse Oximetry 94 L 06/01/19 12:18 Oxygen Delivery Method 06/01/19 12:18 Oxygen Flow Rate (LPM) 2 06/01/19 12:18
--- NOTE | 2019-06-01 13:49 | History & Physical Report ---
*Admission Date: 06/01/19 *Chief complaint: seizure *History of present illness: Ms. dee a 54-year-old female with complicated past medical history of leukemia, left-sided paralysis, seizure disorder who presented to the ER due to onset of seizure today at home. She lives with her and daughter in [facility] and has been sick off and on for the past several weeks. They report that she was recently admitted to [facility] with similar episode, uncontrolled retching, seizure, infection/sepsis, inability to keep p.o. fluids. Was able to restart eating and was discharged home. Soon after getting home has been unable to keep down any food or fluids or medications. For the past 3 to 4 days she has been retching uncontrollably with no p.o. intake and had no meds in the past 2 days. This led to her onset of seizure today leading to her presentation to the ER. In the ER she was noted to have significantly elevated lactate, tachycardia, ANNALISE with creatinine of 2.2 (baseline presumed normal), and leukocytosis. Patient was initiated on ceftriaxone, has received 3 L bolus IV f luids, and antiemetics. Admitted to medicine for seizure disorder and sepsis. After being assessed on the floor, patient has been noted to continue to be tachycardic throughout the afternoon. Has developed a fever greater than 101. Continues to remain unable to tolerate oral intake with retching every 5 to 10 minutes. Emesis is nonproductive at this time. Patient remains tachycardic in sinus tachycardia. Planes of nausea, vomiting. Denies diarrhea. In place of abdominal pain. Denies headache. Denies chest pain. Shortness of breath worse than baseline. [facility] History I have reviewed the patient's past medical history: Yes Medical History: Reports:: Cancer, Chronic Obstructive Pulmonary Disease (COPD), Diabetes Mellitus Type 2, Hyperlipidemia, Seizures *Have you ever received a pneumonia vaccine?: No *Have you received a flu vaccine this season?: No Other Medical History: Reports: Radiation Therapy Laterality Cases: Other Surgeries: Yes: Hernia Repair, Hysterectomy-Total, Hysterectomy-Partial Amputation: No Fractures: No - *Social History Smoking Status: Former smoker #Yrs smoked (if former smoker): 30 Alcohol Intake: never Substance Use Type: denies use *Occupational Status:: disabled Housing: other Household Members: spouse, children *Travel in the last 8 weeks: None Family Hx:: Cancer Review of Systems - Review of Systems Review of systems:: pertinent systems reviewed and negative unless documented below Meds Home Medications Medication Instructions Recorded Confirmed Type alendronate 35 mg tablet 35 mg PO QWEEK 11/12/17 06/01/19 History amitriptyline 50 mg tablet 100 mg PO QHS tab 11/12/17 06/01/19 History aspirin 325 mg tablet 325 mg PO QDAY 11/12/17 06/01/19 History atorvastatin 40 mg tablet 40 mg PO HS 11/12/17 06/01/19 History furosemide 40 mg tablet 20 mg PO QDAY 11/12/17 06/01/19 History levetiracetam 750 mg tablet 750 mg PO Q12H 11/12/17 06/01/19 History meclizine 12.5 mg tablet 12.5 mg PO TID tab 11/12/17 06/01/19 History metformin 500 mg tablet 1,000 mg PO BID 11/12/17 06/01/19 History omeprazole 20 mg capsule,delayed 20 mg PO QDAY 11/12/17 06/01/19 History release tramadol 50 mg tablet 50 mg PO BID tab 11/12/17 06/01/19 History cholecalciferol (vitamin D3) 1,000 1,000 unit PO DAILY 02/11/18 06/01/19 History unit capsule fluoxetine 20 mg capsule 10 mg PO DAILY 09/17/18 06/01/19 History Ondansetron HCl [Ondansetron 8mg 8 mg PO Q6HP PRN 05/05/19 06/01/19 History Tablet] Promethazine HCl [Phenergan 25mg 25 mg PO Q6H PRN 05/05/19 06/01/19 History tab] Propranolol HCl 10 mg PO BID 05/05/19 06/01/19 History SUMAtriptan succinate [Sumatriptan 50 mg PO Q6 PRN 05/05/19 06/01/19 History Succinate] Allergies Allergy/AdvReac Type Severity Reaction Status Date / Time tetanus and diphtheria Allergy Severe Hives Verified 06/01/19 14:36 toxoids [TETANUS & DIPHTHERIA TOXOIDS] Exam Vital signs and Labs for Last 24 Hours: Temp Pulse Resp BP Pulse Ox 99.3 F 150 H 20 127/94 H 97 06/01/19 13:33 06/01/19 13:33 06/01/19 13:33 06/01/19 13:33 06/01/19 13:33 Laboratory Results - last 24 hr 06/01/19 09:00: WBC 24.3 H*, RBC 5.05, Hgb 13.1, Hct 49.7 H, MCV 98.6, MCH 25.9 L, MCHC 26.3 L, RDW 17.5, Plt Count 680 H, MPV 7.7, Neut % (Auto) 69.3, Lymph % (Auto) 25.4, [place] % (Auto) 4.0, Eos % (Auto) 0.4, Baso % (Auto) 0.9, Neut # (Auto) 16.9 H, Lymph # (Auto) 6.2 H, [place] # (Auto) 1.0, Eos # (Auto) 0.1, Baso # (Auto) 0.2, Total Counted 100, Neutrophils % (Manual) 65, Band Neutrophils % 1.0, Lymphocytes % (Manual) 32, Monocytes % (Manual) 1 L, Eosinophils % (Manual) 1, Platelet Estimate Clumped, Hypochromasia 1+, Anisocytosis 1+, Macrocytosis 1+ 06/01/19 09:00: Sodium 144, Potassium 3.6, Chloride 92 L, Carbon Dioxide 9 L*, Anion Gap 46.6 H, BUN 13, Creatinine 2.24 H, Estimated Creat Clear 45, Estimated GFR 23 L, Est GFR ( Amer) 27 L, Glucose 358 H, Calcium 9.3, Total Bilirubin 0.1 L, AST 15, ALT 12, Alkaline Phosphatase 100, Troponin I 0.03, Total Protein 8.9 H, Albumin 3.3 L, Globulin 5.6 H, Albumin/Globulin Ratio 0.6 L 06/01/19 10:21: Urine Color Yellow, Urine Appearance Clear, Urine pH 5.5, Ur Specific [place] >= 1.030, Urine Protein 2+, Urine Glucose (UA) Negative, Urine Ketones 2+, Urine Blood Negative, Urine Nitrate Negative, Urine Bilirubin Negative, Urine Urobilinogen 0.2, Ur Leukocyte Esterase Negative, Urine RBC Occasional, Urine WBC 3-5, Ur Squamous Epith Cells 10-20, Urine Bacteria 1+ 06/01/19 11:03: Lactate 10.4 H I & O for Last 24 hours: Intake & Output 05/29/19 05/30/19 05/31/19 06/01/19 23:59 23:59 23:59 23:59 Weight 80.195 kg - Constitutional moderate distress, obese - *Routine HEENT Exam Head: Present: normocephalic Eye: Present: EOMI, PERRL ENT: Present: mucous membranes moist - *Routine Neck Exam Present: supple. Absent: lymphadenopathy - *Routine Respiratory Exam Present: CTA bilaterally - *Routine Cardiovascular Exam Present: tachycardia. Absent: murmur - *Routine Abdominal Exam Present: soft, normoactive bowel sounds, tenderness (Diffuse). Absent: rebound, guarding - *Routine Rectal Exam Patient deferred: visual exam - *Routine Exam Patient deferred: external exam - *Routine Extremities Exam Absent: cyanosis, clubbing, edema - *Routine Skin Exam Present: intact, warm. Absent: cyanosis, erythema, rash - *Routine Neurological Exam Present: alert, oriented X3. Absent: altered mental status Left-sided paralysis, flaccid Assessment and Plan (1) Severe sepsis Current visit: Yes Status: Acute Category: Medical Code(s): A41.9 - Sepsis, unspecified organism; R65.20 - Severe sepsis without septic shock Unclear etiology at this time. UC pending, BC pending. Continue broad spectrum abx. Broadened after arrival to the floor. S/p 3l NS bolus. Repeat 3L boluses with LR. Lactate improving. Suspect tachycardia related to sepsis and volume depletion after failed conversion of suspected SVT with Adenosine. (2) Mixed acid base balance disorder Current visit: Yes Status: Acute Category: Medical Code(s): E87.4 - Mixed disorder of acid-base balance secondary to metabolic acidosis AG on arrival >40. with inadequate respiratory compensation and respiratory acidosis on concurrent metabolic alkalosis. Suspect patient's emesis led to dehydration and metabolic alkalosis leading to dehydration, ANNALISE, elevated lactate and metabolic acidosis, all in the setting of chronic respiratory failure and elevated pCO2 with respiratory acidosis. will continue to treat emesis aggressively. Fluid resuscitation and sepsis treatment. Monitor for improvement with correction of underlying disease processes. (3) Poorly controlled diabetes mellitus Current visit: Yes Status: Chronic Category: Medical Code(s): E11.65 - Type 2 diabetes mellitus with hyperglycemia SSI and FSGS ACHS (4) Seizure disorder Current visit: Yes Status: Chronic Category: Medical Code(s): G40.909 - Epilepsy, unspecified, not intractable, without status epilepticus complicated by inability to take meds. IV replacement while unable to tolerate PO intake (5) Hypokalemia Current visit: Yes Status: Acute Category: Medical Code(s): E87.6 - Hypokalemia replace aggressively. Suspected secondary to emesis (6) Acute renal failure Current visit: Yes Status: Acute Category: Medical Code(s): N17.9 - Acute kidney failure, unspecified due to dehydration, monitor for improvement with fluid resuscitation (7) Emesis, persistent Current visit: Yes Status: Acute Category: Medical Code(s): R11.10 - Vomiting, unspecified failed zofran, phenergan. John trial reglan and decadron. Initiate PPI due to emesis and stress. - Assessment and plan all Dx Assessment and Plan for all problems:: Pt severely ill. Continues to require ICU level care. Full code
[2019-06-01 15:34] LABS: ABG Base Excess 4.9 mmol/L (-2.4-2.3); ABG HCO3 28.6 mmhg (22.0-26.0); ABG Oxygen Saturation 94 % (90-100); ABG PCO2 40.6 mmhg (35.0-45.0); ABG PH 7.47 mmol/L (7.35-7.45); ABG PO2 76.7 mmhg (80-100); ABG TCO2 29.9 mmhg (23-27)
[2019-06-01 15:36] LABS: Allen's Test ACCEPTABLE; Oxygen 1LPM %
--- NOTE | 2019-06-01 15:58 | Electrocardiograph Report ---
APPROVED REPORT Exam: Resting ECG HR:154 bpm ECG Measurements Heart Rate 154 AXES QRSd 78 QRS -37 QT 346 T83 QTc 554 <Conclusion> Atrial fibrillation with rapid ventricular response with a competing junctional pacemaker with premature ventricular or aberrantly conducted complexes Left axis deviation Low voltage QRS Abnormal ECG Electronically signed by : Jimenez Mead, 06/01/2019 15:57:38
--- NOTE | 2019-06-01 15:59 | Electrocardiograph Report ---
APPROVED REPORT Exam: Resting ECG HR:148 bpm ECG Measurements Heart Rate 148 AXES QRSd 84 QRS 5 QT 344 T81 QTc 540 <Conclusion> Supraventricular tachycardia Low voltage QRS Cannot rule out Anterior infarct, age undetermined Abnormal ECG Electronically signed by : Jimenez Mead, 06/01/2019 15:58:39
[2019-06-01 18:20] LABS: Anion Gap 21.7 mEq/L (5-15); Calcium 8.4 mg/dL (8.5-10.1)
[2019-06-01 20:32] LABS: Albumin Level 2.8 gm/dL (3.4-5.0); Bilirubin,Direct 0.1 mg/dL (0.0-0.2); Bilirubin,Indirect 0.2 mg/dL (0.0-0.9); Bilirubin,Total 0.3 mg/dL (0.2-1.0); Total Protein,Serum 7.8 gm/dL (6.4-8.2)
[2019-06-02 07:15] LABS: Basophils % 0.1 % (0.1-2.0); Eosinophils % 0.1 % (0.1-12.0); Hematocrit 35.9 % (37.0-47.0); Lymphocytes # 1.6 K/mm3 (0.7-4.5); Mean Corpuscular HGB Conc 30.6 g/dL (31.8-35.4)
[2019-06-02 07:25] LABS: Lymphocytes % 7.6 % (10-50); Mean Corpuscular Volume 85.1 fl (81-99); Mean Platelet Volume 7.4 fl (7.4-10.4); Monocytes # 1.3 K/mm3 (0.1-1.0); Monocytes % 5.8 % (1.7-9.3); Neutrophils # 18.5 K/mm3 (1.8-7.8); Neutrophils % 86.5 % (37.0-80.0); Platelet Count 386 K/mm3 (142-424); Red Blood Count 4.22 M/mm3 (4.20-5.40); Red Cell Distribution Width 18.5 % (11.5-17.5); White Blood Count 21.4 K/mm3 (4.8-10.8)
[2019-06-02 07:35] LABS: Albumin Level 2.3 gm/dL (3.4-5.0); Albumin/Globulin Ratio 0.6 (1.1-1.8); Anion Gap 14.9 mEq/L (5-15); Bilirubin,Total 0.3 mg/dL (0.2-1.0); Globulin 4.1 gm/dl (1.3-3.2); Total Protein,Serum 6.4 gm/dL (6.4-8.2)
--- NOTE | 2019-06-02 07:35 | Pharmacy Consult Notes ---
[facility] Pharmacy VTE Monitoring - Patient Demographics Admission date: 06/02/19 Report Date: 06/02/19 Time: 07:35 Allergies/Adverse Reactions: Patient Allergies tetanus and diphtheria toxoids [TETANUS & DIPHTHERIA TOXOIDS] Allergy (Severe, Verified 06/01/19 14:36) Hives Height: 1.63 m Weight: 86.999 kg Patient Problems: Current Active Problems Seizure disorder (Chronic) Poorly controlled diabetes mellitus (Chronic) Sepsis (Acute) Severe sepsis (Acute) Mixed acid base balance disorder (Acute) Hypokalemia (Acute) Acute renal failure (Acute) Emesis, persistent (Acute) - VTE Risk Labs: VTE Related Lab Results Hgb 13.1 g/dL (12.2-16.2) 06/01/19 09:00 Hct 49.7 % (37.0-47.0) H 06/01/19 09:00 Plt Count 680 K/mm3 (142-424) H 06/01/19 09:00 BUN 14 mg/dL (7-18) 06/01/19 18:00 Creatinine 1.80 mg/dL (0.55-1.02) H 06/01/19 18:00 Estimated Creat Clear 44 mL/min (50-200) 06/01/19 18:00 Was VTE Risk Assessment Performed: Yes VTE Score: 9 VTE Risk Level: Moderate Risk Clinical Trial Participant: No - Prophylaxis VTE Prophylaxis Ordered?: Yes Types of VTE Prophylaxis: TEDS Knee High
--- NOTE | 2019-06-02 07:35 | Progress Note ---
Internal Medicine - PN: Subj *Date: 06/02/19 *Time: 07:32 Interval history: Overall patient is alert, states that she continues to feel poorly, but denies abdominal pain or swelling. States that her nausea is somewhat better after NG tube was placed yesterday. Patient had 600 mL's of fluid from the NG tube immediately on insertion according to nursing staff. She continues to feel bloated and like she needs to pass flatus but has not had gas or bowel movement. Exam Vital signs and Labs for Last 24 Hours: Temp Pulse Resp BP Pulse Ox 99.4 F 130 H 21 159/69 H 92 L 06/02/19 04:18 06/02/19 06:00 06/02/19 06:00 06/02/19 06:00 06/02/19 06:00 Laboratory Results - last 24 hr 06/01/19 09:00: WBC 24.3 H*, RBC 5.05, Hgb 13.1, Hct 49.7 H, MCV 98.6, MCH 25.9 L, MCHC 26.3 L, RDW 17.5, Plt Count 680 H, MPV 7.7, Neut % (Auto) 69.3, Lymph % (Auto) 25.4, [place] % (Auto) 4.0, Eos % (Auto) 0.4, Baso % (Auto) 0.9, Neut # (Auto) 16.9 H, Lymph # (Auto) 6.2 H, [place] # (Auto) 1.0, Eos # (Auto) 0.1, Baso # (Auto) 0.2, Total Counted 100, Neutrophils % (Manual) 65, Band Neutrophils % 1.0, Lymphocytes % (Manual) 32, Monocytes % (Manual) 1 L, Eosinophils % (Manual) 1, Platelet Estimate Clumped, Hypochromasia 1+, Anisocytosis 1+, Macrocytosis 1+ 06/01/19 09:00: Sodium 144, Potassium 3.6, Chloride 92 L, Carbon Dioxide 9 L*, Anion Gap 46.6 H, BUN 13, Creatinine 2.24 H, Estimated Creat Clear 45, Estimated GFR 23 L, Est GFR ( Amer) 27 L, Glucose 358 H, Calcium 9.3, Total Bilirubin 0.1 L, AST 15, ALT 12, Alkaline Phosphatase 100, Troponin I 0.03, Total Protein 8.9 H, Albumin 3.3 L, Globulin 5.6 H, Albumin/Globulin Ratio 0.6 L 06/01/19 10:21: Urine Color Yellow, Urine Appearance Clear, Urine pH 5.5, Ur Spe cific [place] >= 1.030, Urine Protein 2+, Urine Glucose (UA) Negative, Urine Ketones 2+, Urine Blood Negative, Urine Nitrate Negative, Urine Bilirubin Negative, Urine Urobilinogen 0.2, Ur Leukocyte Esterase Negative, Urine RBC Occasional, Urine WBC 3-5, Ur Squamous Epith Cells 10-20, Urine Bacteria 1+ 06/01/19 11:03: Lactate 10.4 H 06/01/19 15:13: Specimen Source R radial, O2 % 1lpm, ABG pH 7.47 H, ABG pCO2 40.6, ABG pO2 76.7 L, ABG HCO3 28.6 H, ABG Total CO2 29.9 H, ABG O2 Saturation 94, ABG Base Excess 4.9 H, Feliz Test Acceptable 06/01/19 15:20: POC Glucose 175 H 06/01/19 15:23: Lactate 2.5 H 06/01/19 15:23: Hemoglobin A1c 6.1 06/01/19 15:23: Acetone Level Small 06/01/19 15:23: Magnesium 2.0 06/01/19 15:40: POC Glucose 159 H 06/01/19 18:00: Sodium 144, Potassium 2.7 L* D, Chloride 98, Carbon Dioxide 27 D, Anion Gap 21.7 H, BUN 14, Creatinine 1.80 H, Estimated Creat Clear 44, Estimated GFR 29 L, Est GFR ( Amer) 35 L D, Glucose 199 H D, Calcium 8.4 L, Total Bilirubin 0.3, Direct Bilirubin 0.1, Indirect Bilirubin 0.2, AST 46 H D , ALT 11 L, Alkaline Phosphatase 86, Total Protein 7.8, Albumin 2.8 L D 06/01/19 18:00: Lactate 2.7 H 06/01/19 20:27: POC Glucose 229 H 06/02/19 05:52: POC Glucose 163 H I & O for Last 24 hours: Intake & Output 05/30/19 05/31/19 06/01/19 06/02/19 11:59 11:59 11:59 11:59 Intake Total 6563.833 / 6563.833 Output Total 790 / 790 Balance 5773.833 / 5773.833 Weight 225 lb 191 lb 12.8 oz Narrative: Patient is alert, responsive. Pleasant. Communicative. Oropharynx clear. NG tube in good position. Lungs have good air movement. Heart rate regular. Abdomen is distended but soft, 1+ peripheral edema. Skin turgor is good. No visible rashes. Able to move extremities well. Assessment and Plan (1) Severe sepsis Current visit: Yes Status: Acute Category: Medical Code(s): A41.9 - Sepsis, unspecified organism; R65.20 - Severe sepsis without septic shock (2) Mixed acid base balance disorder Current visit: Yes Status: Acute Category: Medical Code(s): E87.4 - Mixed disorder of acid-base balance (3) Poorly controlled diabetes mellitus Current visit: Yes Status: Chronic Category: Medical Code(s): E11.65 - Type 2 diabetes mellitus with hyperglycemia (4) Seizure disorder Current visit: Yes Status: Chronic Category: Medical Code(s): G40.909 - Epilepsy, unspecified, not intractable, without status epilepticus (5) Hypokalemia Current visit: Yes Status: Acute Category: Medical Code(s): E87.6 - Hypokalemia (6) Acute renal failure Current visit: Yes Status: Acute Category: Medical Code(s): N17.9 - Acute kidney failure, unspecified (7) Emesis, persistent Current visit: Yes Status: Acute Category: Medical Code(s): R11.10 - Vomiting, unspecified - Assessment and plan all Dx Assessment and Plan for all problems:: Plan will be to continue broad-spectrum IV antibiotics today. Follow electrolytes this morning as labs still pending. Recheck abdominal film after NG tube placed for ileus. I will ask on-call surgeon to evaluate case, consider noncontrast CT scan Continue fluid support and watch acid-base status carefully.
[2019-06-02 07:45] LABS: Calcium 7.5 mg/dL (8.5-10.1)
--- NOTE | 2019-06-02 08:51 | Consult Report ---
*Admission Date: 06/02/19 *Reason for consult:: Partial small bowel obstruction versus ileus *History of present illness: This is a 54-year-old female seen in consultation from Dr. Mead for evaluation regarding partial small bowel obstruction versus ileus. She has a complicated past medical history including leukemia, seizure disorder, and left-sided paralysis. She presented with increasing nausea/emesis over the past 3 weeks with some associated diarrhea. She was profoundly dehydrated with acute kidney injury and hypokalemia and was admitted to the intensive care unit for further evaluation and management. She continues to feel somewhat bloated but states that she "feels a little bit better" after nasogastric tube placement. No significant abdominal pain. She had a bowel movement yesterday and has had bowel movements fairly consistently until today. She is not sure of her most recent flatus; however, she has not passed flatus today. Review of Systems - Constitutional Denies excessive sweating - Eyes Denies double vision - ENT Denies change in voice - *Cardiovascular Denies chest pain - *Respiratory Denies cough - *Gastrointestinal Reports bloating, Reports nausea, Reports vomiting, Denies vomiting blood - *Genitourinary Denies painful urination - Psychiatric Denies anxiety - Hematologic/Lymphatic Denies easy bleeding [facility] History Medical History: Reports:: Cancer (non-hodgkins lymphoma in abdomen and (L) lung), Chronic Obstructive Pulmonary Disease (COPD), Diabetes Mellitus Type 2, Hyperlipidemia, Seizures Denies:: Diabetes Mellitus Type 1, MRSA *Have you ever received a pneumonia vaccine?: Yes *Have you received a flu vaccine this season?: Yes Other Medical History: Reports: Arthritis, Chemotherapy (2012 - 2014), Radiation Therapy (2018) Laterality Cases: Right: Carpal Tunnel Release Other Surgeries: Yes: Cholecystectomy, Colonoscopy, EGD, Hernia Repair (2 umbilical hernia repairs /c mesh), Hysterectomy-Total, Hysterectomy-Partial, Other (port placement) Amputation: No Fractures: No - *Social History Educational Level: Completed High School Smoking Status: Former smoker #Yrs smoked (if former smoker): 30 Smoking End Date: 08/07/2014 Alcohol Intake: never Substance Use Type: denies use *Occupational Status:: disabled Housing: other Household Members: spouse, children *Travel in the last 8 weeks: None Family Hx:: Cancer, Coronary Artery Disease, Heart Attack Meds Home Medications Medication Instructions Recorded Confirmed Type alendronate 35 mg tablet 35 mg PO QWEEK 11/12/17 06/01/19 History amitriptyline 50 mg tablet 100 mg PO QHS tab 11/12/17 06/01/19 History aspirin 325 mg tablet 325 mg PO QDAY 11/12/17 06/01/19 History atorvastatin 40 mg tablet 40 mg PO HS 11/12/17 06/01/19 History furosemide 40 mg tablet 20 mg PO QDAY 11/12/17 06/01/19 History levetiracetam 750 mg tablet 750 mg PO Q12H 11/12/17 06/01/19 History meclizine 12.5 mg tablet 12.5 mg PO TID tab 11/12/17 06/01/19 History metformin 500 mg tablet 1,000 mg PO BID 11/12/17 06/01/19 History omeprazole 20 mg capsule,delayed 20 mg PO QDAY 11/12/17 06/01/19 History release tramadol 50 mg tablet 50 mg PO BID tab 11/12/17 06/01/19 History cholecalciferol (vitamin D3) 1,000 1,000 unit PO DAILY 02/11/18 06/01/19 History unit capsule fluoxetine 20 mg capsule 10 mg PO DAILY 09/17/18 06/01/19 History Ondansetron HCl [Ondansetron 8mg 8 mg PO Q6HP PRN 05/05/19 06/01/19 History Tablet] Promethazine HCl [Phenergan 25mg 25 mg PO Q6H PRN 05/05/19 06/01/19 History tab] Propranolol HCl 10 mg PO BID 05/05/19 06/01/19 History SUMAtriptan succinate [Sumatriptan 50 mg PO Q6 PRN 05/05/19 06/01/19 History Succinate] Allergies Allergy/AdvReac Type Severity Reaction Status Date / Time tetanus and diphtheria Allergy Severe Hives Verified 06/01/19 14:36 toxoids [TETANUS & DIPHTHERIA TOXOIDS] Exam Vital signs and Labs for Last 24 Hours: Temp Pulse Resp BP Pulse Ox 99.4 F 130 H 21 159/69 H 92 L 06/02/19 04:18 06/02/19 06:00 06/02/19 06:00 06/02/19 06:00 06/02/19 06:00 Laboratory Results - last 24 hr 06/01/19 09:00: WBC 24.3 H*, RBC 5.05, Hgb 13.1, Hct 49.7 H, MCV 98.6, MCH 25.9 L, MCHC 26.3 L, RDW 17.5, Plt Count 680 H, MPV 7.7, Neut % (Auto) 69.3, Lymph % (Auto) 25.4, [place] % (Auto) 4.0, Eos % (Auto) 0.4, Baso % (Auto) 0.9, Neut # (Auto) 16.9 H, Lymph # (Auto) 6.2 H, [place] # (Auto) 1.0, Eos # (Auto) 0.1, Baso # (Auto) 0.2, Total Counted 100, Neutrophils % (Manual) 65, Band Neutrophils % 1.0, Lymphocytes % (Manual) 32, Monocytes % (Manual) 1 L, Eosinophils % (Manual) 1, Platelet Estimate Clumped, Hypochromasia 1+, Anisocytosis 1+, Macrocytosis 1+ 06/01/19 09:00: Sodium 144, Potassium 3.6, Chloride 92 L, Carbon Dioxide 9 L*, Anion Gap 46.6 H, BUN 13, Creatinine 2.24 H, Estimated Creat Clear 45, Estimated GFR 23 L, Est GFR ( Amer) 27 L, Glucose 358 H, Calcium 9.3, Total Bilirubin 0.1 L, AST 15, ALT 12, Alkaline Phosphatase 100, Troponin I 0.03, Total Protein 8.9 H, Albumin 3.3 L, Globulin 5.6 H, Albumin/Globulin Ratio 0.6 L 06/01/19 10:21: Urine Color Yellow, Urine Appearance Clear, Urine pH 5.5, Ur Specific [place] >= 1.030, Urine Protein 2+, Urine Glucose (UA) Negative, Urine Ketones 2+, Urine Blood Negative, Urine Nitrate Negative, Urine Bilirubin Negative, Urine Urobilinogen 0.2, Ur Leukocyte Esterase Negative, Urine RBC Occasional, Urine WBC 3-5, Ur Squamous Epith Cells 10-20, Urine Bacteria 1+ 06/01/19 11:03: Lactate 10.4 H 06/01/19 15:13: Specimen Source R radial, O2 % 1lpm, ABG pH 7.47 H, ABG pCO2 40.6, ABG pO2 76.7 L, ABG HCO3 28.6 H, ABG Total CO2 29.9 H, ABG O2 Saturation 94, ABG Base Excess 4.9 H, Feliz Test Acceptable 06/01/19 15:20: POC Glucose 175 H 06/01/19 15:23: Lactate 2.5 H 06/01/19 15:23: Hemoglobin A1c 6.1 06/01/19 15:23: Acetone Level Small 06/01/19 15:23: Magnesium 2.0 06/01/19 15:40: POC Glucose 159 H 06/01/19 18:00: Sodium 144, Potassium 2.7 L* D, Chloride 98, Carbon Dioxide 27 D, Anion Gap 21.7 H, BUN 14, Creatinine 1.80 H, Estimated Creat Clear 44, Estimated GFR 29 L, Est GFR ( Amer) 35 L D, Glucose 199 H D, Calcium 8.4 L, Total Bilirubin 0.3, Direct Bilirubin 0.1, Indirect Bilirubin 0.2, AST 46 H D , ALT 11 L, Alkaline Phosphatase 86, Total Protein 7.8, Albumin 2.8 L D 06/01/19 18:00: Lactate 2.7 H 06/01/19 20:27: POC Glucose 229 H 06/02/19 05:52: POC Glucose 163 H 06/02/19 06:20: Sodium 142, Potassium 3.9 D, Chloride 104, Carbon Dioxide 27, Anion Gap 14.9, BUN 11, Creatinine 1.87 H, Estimated Creat Clear 46, Estimated GFR 28 L, Est GFR ( Amer) 34 L, Glucose 158 H D, Calcium 7.5 L D, Mag nesium 1.4 D, Total Bilirubin 0.3, AST 54 H, ALT 13, Alkaline Phosphatase 69, Total Protein 6.4, Albumin 2.3 L D, Globulin 4.1 H, Albumin/Globulin Ratio 0.6 L I & O for Last 24 hours: Intake & Output 05/30/19 05/31/19 06/01/19 06/02/19 11:59 11:59 11:59 11:59 Intake Total 6563.833 / 6563.833 Output Total 790 / 790 Balance 5773.833 / 5773.833 Weight 225 lb 191 lb 12.8 oz - Constitutional no acute distress - *Routine Respiratory Exam Absent: respiratory distress - *Routine Cardiovascular Exam Present: tachycardia - *Routine Abdominal Exam Present: soft. Absent: tenderness, distended, rebound Results - Labs 06/01/19 09:00 06/02/19 06:20 Laboratory Results - last 24 hr 06/01/19 09:00: WBC 24.3 H*, RBC 5.05, Hgb 13.1, Hct 49.7 H, MCV 98.6, MCH 25.9 L, MCHC 26.3 L, RDW 17.5, Plt Count 680 H, MPV 7.7, Neut % (Auto) 69.3, Lymph % (Auto) 25.4, [place] % (Auto) 4.0, Eos % (Auto) 0.4, Baso % (Auto) 0.9, Neut # (Auto) 16.9 H, Lymph # (Auto) 6.2 H, [place] # (Auto) 1.0, Eos # (Auto) 0.1, Baso # (Auto) 0.2, Total Counted 100, Neutrophils % (Manual) 65, Band Neutrophils % 1.0, Lymphocytes % (Manual) 32, Monocytes % (Manual) 1 L, Eosinophils % (Manual) 1, Platelet Estimate Clumped, Hypochromasia 1+, Anisocytosis 1+, Macrocytosis 1+ 06/01/19 09:00: Sodium 144, Potassium 3.6, Chloride 92 L, Carbon Dioxide 9 L*, Anion Gap 46.6 H, BUN 13, Creatinine 2.24 H, Estimated Creat Clear 45, Estimated GFR 23 L, Est GFR ( Amer) 27 L, Glucose 358 H, Calcium 9.3, Total Bilirubin 0.1 L, AST 15, ALT 12, Alkaline Phosphatase 100, Troponin I 0.03, Total Protein 8.9 H, Albumin 3.3 L, Globulin 5.6 H, Albumin/Globulin Ratio 0.6 L 06/01/19 10:21: Urine Color Yellow, Urine Appearance Clear, Urine pH 5.5, Ur Specific [place] >= 1.030, Urine Protein 2+, Urine Glucose (UA) Negative, Urine Ketones 2+, Urine Blood Negative, Urine Nitrate Negative, Urine Bilirubin Negative, Urine Urobilinogen 0.2, Ur Leukocyte Esterase Negative, Urine RBC Occasional, Urine WBC 3-5, Ur Squamous Epith Cells 10-20, Urine Bacteria 1+ 06/01/19 11:03: Lactate 10.4 H 06/01/19 15:13: Specimen Source R radial, O2 % 1lpm, ABG pH 7.47 H, ABG pCO2 40.6, ABG pO2 76.7 L, ABG HCO3 28.6 H, ABG Total CO2 29.9 H, ABG O2 Saturation 94, ABG Base Excess 4.9 H, Feliz Test Acceptable 06/01/19 15:20: POC Glucose 175 H 06/01/19 15:23: Lactate 2.5 H 06/01/19 15:23: Hemoglobin A1c 6.1 06/01/19 15:23: Acetone Level Small 06/01/19 15:23: Magnesium 2.0 06/01/19 15:40: POC Glucose 159 H 06/01/19 18:00: Sodium 144, Potassium 2.7 L* D, Chloride 98, Carbon Dioxide 27 D, Anion Gap 21.7 H, BUN 14, Creatinine 1.80 H, Estimated Creat Clear 44, Estimated GFR 29 L, Est GFR ( Amer) 35 L D, Glucose 199 H D, Calcium 8.4 L, Total Bilirubin 0.3, Direct Bilirubin 0.1, Indirect Bilirubin 0.2, AST 46 H D , ALT 11 L, Alkaline Phosphatase 86, Total Protein 7.8, Albumin 2.8 L D 06/01/19 18:00: Lactate 2.7 H 06/01/19 20:27: POC Glucose 229 H 06/02/19 05:52: POC Glucose 163 H 06/02/19 06:20: Sodium 142, Potassium 3.9 D, Chloride 104, Carbon Dioxide 27, Anion Gap 14.9, BUN 11, Creatinine 1.87 H, Estimated Creat Clear 46, Estimated GFR 28 L, Est GFR ( Amer) 34 L, Glucose 158 H D, Calcium 7.5 L D, Magnesium 1.4 D, Total Bilirubin 0.3, AST 54 H, ALT 13, Alkaline Phosphatase 69, Total Protein 6.4, Albumin 2.3 L D, Globulin 4.1 H, Albumin/Globulin Ratio 0.6 L - Imaging Abdominal x-ray: report reviewed, image reviewed Assessment and Plan (1) Severe sepsis Current visit: Yes Status: Acute Category: Medical Code(s): A41.9 - Sepsis, unspecified organism; R65.20 - Severe sepsis without septic shock (2) Mixed acid base balance disorder Current visit: Yes Status: Acute Category: Medical Code(s): E87.4 - Mixed disorder of acid-base balance (3) Poorly controlled diabetes mellitus Current visit: Yes Status: Chronic Category: Medical Code(s): E11.65 - Type 2 diabetes mellitus with hyperglycemia (4) Seizure disorder Current visit: Yes Status: Chronic Category: Medical Code(s): G40.909 - Epilepsy, unspecified, not intractable, without status epilepticus (5) Hypokalemia Current visit: Yes Status: Acute Category: Medical Code(s): E87.6 - Hypokalemia (6) Acute renal failure Current visit: Yes Status: Acute Category: Medical Code(s): N17.9 - Acute kidney failure, unspecified (7) Emesis, persistent Current visit: Yes Status: Acute Category: Medical Code(s): R11.10 - Vom iting, unspecified (8) Ileus Current visit: Yes Status: Acute Category: Medical Code(s): K56.7 - Ileus, unspecified Possible (less likely) partial obstruction of undetermined etiology. Continue nasogastric decompression for now Serial abdominal exams Agree with CT scan with contrast per nasogastric tube (no IV contrast secondary to acute kidney injury)
--- NOTE | 2019-06-02 10:12 | Pharmacy Consult Notes ---
- Pharmacy Consult Date: 06/02/19 Time: 10:11 Referring provider: DR. DENNEY Reason for Consult:: VANCOMYCIN DOSING Allergies and ADEs:: Allergies Allergy/AdvReac Type Severity Reaction Status Date / Time tetanus and diphtheria Allergy Severe Hives Verified 06/01/19 14:36 toxoids [TETANUS & DIPHTHERIA TOXOIDS] Home Medications:: Home Medications Medication Instructions Recorded Confirmed Type alendronate 35 mg tablet 35 mg PO WEEKLY 11/12/17 06/02/19 History aspirin 325 mg tablet 325 mg PO QDAY 11/12/17 06/01/19 History atorvastatin 40 mg tablet 40 mg PO HS 11/12/17 06/01/19 History furosemide 40 mg tablet 40 mg PO DAILY 11/12/17 06/02/19 History levetiracetam 750 mg tablet 750 mg PO Q12H 11/12/17 06/01/19 History meclizine 12.5 mg tablet 12.5 mg PO TID tab 11/12/17 06/01/19 History metformin 500 mg tablet 1,000 mg PO BID 11/12/17 06/01/19 History omeprazole 20 mg capsule,delayed 20 mg PO DAILY 11/12/17 06/02/19 History release tramadol 50 mg tablet 50 mg PO BID tab 11/12/17 06/01/19 History cholecalciferol (vitamin D3) 1,000 1,000 unit PO DAILY 02/11/18 06/01/19 History unit capsule Ondansetron HCl [Ondansetron 8mg 8 mg PO TIDP PRN 05/05/19 06/02/19 History Tablet] Promethazine HCl [Phenergan 25mg 25 mg PO Q6H PRN 05/05/19 06/01/19 History tab] Propranolol HCl 10 mg PO BID 05/05/19 06/01/19 History SUMAtriptan succinate [Sumatriptan 50 mg PO NEEDED PRN 05/05/19 06/02/19 History Succinate] Amitriptyline HCl 100 mg PO HS 06/02/19 06/02/19 History Fluoxetine HCl [Prozac 10mg 10 mg PO DAILY 06/02/19 06/02/19 History Capsule] Height: 1.63 m Weight: 86.999 kg Laboratory Results:: Laboratory Results - last 24 hr 06/01/19 10:21: Urine Color Yellow, Urine Appearance Clear, Urine pH 5.5, Ur Specific [place] >= 1.030, Urine Protein 2+, Urine Glucose (UA) Negative, Urine Ketones 2+, Urine Blood Negative, Urine Nitrate Negative, Urine Bilirubin Negative, Urine Urobilinogen 0.2, Ur Leukocyte Esterase Negative, Urine RBC Occasional, Urine WBC 3-5, Ur Squamous Epith Cells 10-20, Urine Bacteria 1+ 06/01/19 11:03: Lactate 10.4 H 06/01/19 15:13: Specimen Source R radial, O2 % 1lpm, ABG pH 7.47 H, ABG pCO2 40.6, ABG pO2 76.7 L, ABG HCO3 28.6 H, ABG Total CO2 29.9 H, ABG O2 Saturation 94, ABG Base Excess 4.9 H, Feliz Test Acceptable 06/01/19 15:20: POC Glucose 175 H 06/01/19 15:23: Lactate 2.5 H 06/01/19 15:23: Hemoglobin A1c 6.1 06/01/19 15:23: Acetone Level Small 06/01/19 15:23: Magnesium 2.0 06/01/19 15:40: POC Glucose 159 H 06/01/19 18:00: Sodium 144, Potassium 2.7 L* D, Chloride 98, Carbon Dioxide 27 D, Anion Gap 21.7 H, BUN 14, Creatinine 1.80 H, Estimated Creat Clear 44, Estimated GFR 29 L, Est GFR ( Amer) 35 L D, Glucose 199 H D, Calcium 8.4 L, Total Bilirubin 0.3, Direct Bilirubin 0.1, Indirect Bilirubin 0.2, AST 46 H D , ALT 11 L, Alkaline Phosphatase 86, Total Protein 7.8, Albumin 2.8 L D 06/01/19 18:00: Lactate 2.7 H 06/01/19 20:27: POC Glucose 229 H 06/02/19 05:52: POC Glucose 163 H 06/02/19 06:20: WBC 21.4 H*, RBC 4.22, Hct 35.9 L, MCV 85.1, MCH 26.0 L, MCHC 30.6 L, RDW 18.5 H, Plt Count 386 D, MPV 7.4, Neut % (Auto) 86.5 H, Lymph % (Auto) 7.6 L, [place] % (Auto) 5.8, Eos % (Auto) 0.1, Baso % (Auto) 0.1, Neut # (Auto) 18.5 H, Lymph # (Auto) 1.6, [place] # (Auto) 1.3 H, Eos # (Auto) 0.0, Baso # (Auto) 0.0 06/02/19 06:20: Sodium 142, Potassium 3.9 D, Chloride 104, Carbon Dioxide 27, Anion Gap 14.9, BUN 11, Creatinine 1.87 H, Estimated Creat Clear 46, Estimated GFR 28 L, Est GFR ( Amer) 34 L, Glucose 158 H D, Calcium 7.5 L D, Magnesium 1.4 D, Total Bilirubin 0.3, AST 54 H, ALT 13, Alkaline Phosphatase 69, Total Protein 6.4, Albumin 2.3 L D, Globulin 4.1 H, Albumin/Globulin Ratio 0.6 L Medical History: Reports:: Cancer (non-hodgkins lymphoma in abdomen and (L) lung), Chronic Obstructive Pulmonary Disease (COPD), Diabetes Mellitus Type 2, Hyperlipidemia, Seizures Denies:: Diabetes Mellitus Type 1, MRSA Assessment and Plan (1) Severe sepsis Current visit: Yes Status: Acute Category: Medical Code(s): A41.9 - Sepsis, unspecified organism; R65.20 - Severe sepsis without septic shock (2) Mixed acid base balance disorder Current visit: Yes Status: Acute Category: Medical Code(s): E87.4 - Mixed disorder of acid-base balance (3) Poorly controlled diabetes mellitus Current visit: Yes Status: Chronic Category: Medical Code(s): E11.65 - Type 2 diabetes mellitus with hyperglycemia (4) Seizure disorder Current visit: Yes Status: Chronic Category: Medical Code(s): G40.909 - Epilepsy, unspecified, not intractable, without status epilepticus (5) Hypokalemia Current visit: Yes Status: Acute Category: Medical Code(s): E87.6 - Hypokalemia (6) Acute renal failure Current visit: Yes Status: Acute Category: Medical Code(s): N17.9 - Acute kidney failure, unspecified (7) Emesis, persistent Current visit: Yes Status: Acute Category: Medical Code(s): R11.10 - Vomiting, unspecified (8) Ileus Current visit: Yes Status: Acute Category: Medical Code(s): K56.7 - Ileus, unspecified - Assessment and plan all Dx Assessment and Plan for all problems:: BASED ON PATIENT FACTORS, RECOMMEND VANCOMYCIN 1500 MG IV ONCE, FOLLOWED BY VANCOMYCIN 1250 MG IV Q24H. PHARMACY WILL FOLLOW DAILY AND ADJUST APPROPRIATE.
--- NOTE | 2019-06-02 10:39 | Electrocardiograph Report ---
APPROVED REPORT Exam: Resting ECG HR:131 bpm ECG Measurements Heart Rate 131 AXES SC 136 P 63 QRSd 78 QRS -4 QT 390 T147 QTc 575 <Conclusion> Sinus tachycardia with occasional premature ventricular complexes and fusion complexes Low voltage QRS late r wave progression T wave abnormality, consider lateral ischemia Abnormal ECG Electronically signed by : Jimenez Mead, 06/02/2019 10:38:34
[2019-06-02 12:37] LABS: Hypochromasia 2+; Lymphocytes % 7 % (10-50); Monocytes % 5 % (2-9); Neutrophils % 88 % (42-76); Total Cells Counted 100
[2019-06-02 12:38] LABS: Stomatocytes 1+; Tear Drop Cells 1+
[2019-06-02 22:47] LABS: Basophils % 0.1 % (0.1-2.0); Eosinophils % 0.1 % (0.1-12.0); Hematocrit 34.7 % (37.0-47.0); Hemoglobin 10.2 g/dL (12.2-16.2); Lymphocytes # 1.4 K/mm3 (0.7-4.5); Lymphocytes % 6.8 % (10-50); Mean Corpuscular HGB Conc 29.4 g/dL (31.8-35.4); Mean Corpuscular Volume 86.8 fl (81-99); Mean Platelet Volume 7.3 fl (7.4-10.4); Monocytes # 0.9 K/mm3 (0.1-1.0); Monocytes % 4.4 % (1.7-9.3); Neutrophils # 18.1 K/mm3 (1.8-7.8); Neutrophils % 88.7 % (37.0-80.0); Platelet Count 365 K/mm3 (142-424); Red Cell Distribution Width 18.4 % (11.5-17.5); White Blood Count 20.4 K/mm3 (4.8-10.8)
[2019-06-02 23:02] LABS: Anion Gap 16.5 mEq/L (5-15); Blood Urea Nitrogen 13 mg/dL (7-18); Calcium 7.1 mg/dL (8.5-10.1); Carbon Dioxide 25 mmol/L (21.0-32.0); Chloride 104 mmol/L (98-107); Glucose 190 mg/dL (74-106); Sodium 142 mmol/L (136-145)
[2019-06-02 23:26] LABS: Acetone, Serum (Rapid) None Detected (None Detect)
[2019-06-02 23:36] LABS: Lymphocytes % 8 % (10-50); Monocytes % 4 % (2-9); Neutrophils % 88 % (42-76); Total Cells Counted 100
[2019-06-02 23:37] LABS: Hypochromasia 2+
--- NOTE | 2019-06-03 00:11 | Progress Note ---
Internal Medicine - PN: Subj *Date: 06/03/19 *Time: 08:45 Interval history: Ms. Patricia had an eventful evening with worsening shortness of breath. This led to a rapid response being called with subsequent enzymes being obtained showing an elevation in her troponin. Has no changes on EKG however. Cardiology was consulted and echocardiogram was ordered in the middle of the night. Initial read on Echo with abnormal apical motion and ~35% EF. Unclear if new or old as we do not have a previous Echo. Cardiology to see her this morning. On interview this morning she reports no CP, SOA improved, on Vapotherm HFNC, no longer having emesis, and resolved belly pain. While she has come clinical stability, I have concern for her sx to be related to her lymphoma or TLS. Urate and LDH obtained this morning with elevation of both. Bowel obstruction improved with decompression, NG with minimal output this morning. Of note has had previous C-scope as recent as last year. She denies any obstructing lesions to her knowledge. eviously. C-scope/Flex Sig previously obtained in [place] due to rectosigmoid junction narrowing seen previously on CT. Further review of records from Oncology with the followin-year-old female with recurrent diffuse large B-cell lymphoma. She was usha brown diagnosed in 2012. She is status post 6 cycles of CHOPR receiving her last chemotherapy doses February 16, 2014. Then she completed a year of monthly Rituxan April 13, 2015. Recently completed SBRT under the direction of Dr. River Easley at the [facility] for recurrent diffuse large B-cell lymphoma in the left lung. Tolerated this treatment very well overall. 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 Her last CT scan of the abdomen and pelvis from July 2018 showed no evidence of recurrent lymphoma. - scheduled for repeat CT Chest/Abd/Pelvis later this month Exam Vital signs and Labs for Last 24 Hours: Temp Pulse Resp BP Pulse Ox 99.2 F 145 H 34 H 104/60 L 94 L 06/02/19 20:00 06/02/19 23:52 06/02/19 20:00 06/02/19 23:11 06/02/19 23:27 Laboratory Results - last 24 hr 06/02/19 05:52: POC Glucose 163 H 06/02/19 06:20: WBC 21.4 H*, RBC 4.22, Hgb 11.0 L D, Hct 35.9 L, MCV 85.1, MCH 26.0 L, MCHC 30.6 L, RDW 18.5 H, Plt Count 386 D, MPV 7.4, Neut % (Auto) 86.5 H , Lymph % (Auto) 7.6 L, [place] % (Auto) 5.8, Eos % (Auto) 0.1, Baso % (Auto) 0.1, Neut # (Auto) 18.5 H, Lymph # (Auto) 1.6, [place] # (Auto) 1.3 H, Eos # (Auto) 0.0, Baso # (Auto) 0.0, Total Counted 100, Neutrophils % (Manual) 88 H, Lymphocytes % (Manual) 7 L, Monocytes % (Manual) 5, Platelet Estimate Normal, Hypochromasia 2+, Tear Drop Cells 1+, Stomatocytes 1+ 06/02/19 06:20: Sodium 142, Potassium 3.9 D, Chloride 104, Carbon Dioxide 27, Anion Gap 14.9, BUN 11, Creatinine 1.87 H, Estimated Creat Clear 46, Estimated GFR 28 L, Est GFR ( Amer) 34 L, Glucose 158 H D, Calcium 7.5 L D, Magnesium 1.4 D, Total Bilirubin 0.3, AST 54 H, ALT 13, Alkaline Phosphatase 69, Total Protein 6.4, Albumin 2.3 L D, Globulin 4.1 H, Albumin/Globulin Ratio 0.6 L 06/02/19 11:41: POC Glucose 141 H 06/02/19 22:24: WBC 20.4 H*, RBC 4.00 L, Hgb 10.2 L, Hct 34.7 L, MCV 86.8, MCH 25.5 L, MCHC 29.4 L, RDW 18.4 H, Plt Count 365, MPV 7.3 L, Neut % (Auto) 88.7 H, Lymph % (Auto) 6.8 L, [place] % (Auto) 4.4, Eos % (Auto) 0.1, Baso % (Auto) 0.1, Neut # (Auto) 18.1 H, Lymph # (Auto) 1.4, [place] # (Auto) 0.9, Eos # (Auto) 0.0, Baso # (Auto) 0.0, Total Counted 100, Neutrophils % (Manual) 88 H, Lymphocytes % (Manual) 8 L, Monocytes % (Manual) 4, Platelet Estimate Normal, Hypochromasia 2+ 06/02/19 22:24: Sodium 142, Potassium 3.5, Chloride 104, Carbon Dioxide 25, Anion Gap 16.5 H, BUN 13, Creatinine 1.94 H, Estimated Creat Clear 44, Estimated GFR 27 L, Est GFR ( Amer) 32 L, Glucose 190 H D, Calcium 7.1 L, Troponin I 1.64 H, Acetone Level None detected I & O for Last 24 hours: Intake & Output 05/31/19 06/01/19 06/02/19 06/03/19 23:59 23:59 23:59 23:59 Intake Total 150.833 / 517.030 7785 / 8105 Output Total 1390 / 1390 300 / 300 Balance 150.833 / 028.191 1603 / 6715 -300 / -300 Weight 80.195 kg 86.999 kg - Constitutional mild distress (with interval improvement.), obese, chronically ill appearing - *Routine HEENT Exam Head: Present: normocephalic, atraumatic Eye: Present: EOMI, PERRL ENT: Present: mucous membranes moist Comments: NG in place. - *Routine Neck Exam Present: supple. Absent: lymphadenopathy - *Routine Respiratory Exam Absent: accessory muscle use Comments: good airmovement bilaterally, crackles LLB - *Routine Cardiovascular Exam Present: tachycardia. Absent: murmur - *Routine Abdominal Exam Present: soft. Absent: rebound, guarding Comments: hypoactive BS, minimal tenderness with significant improvement over my exam 2 days ago - *Routine Extremities Exam Present: edema, pallor. Absent: cyanosis, clubbing - *Routine Skin Exam Present: intact. Absent: cyanosis, erythema - *Routine Neurological Exam Present: alert, oriented X3. Absent: altered mental status left sided flaccid paralysis of UE with weakness and paralysis of LLE Assessment and Plan (1) Severe sepsis Current visit: Yes Status: Acute Category: Medical Code(s): A41.9 - Sepsis, unspecified organism; R65.20 - Severe sepsis without septic shock (2) Mixed acid base balance disorder Current visit: Yes Status: Acute Category: Medical Code(s): E87.4 - Mixed disorder of acid-base balance (3) Poorly controlled diabetes mellitus Current visit: Yes Status: Chronic Category: Medical Code(s): E11.65 - Type 2 diabetes mellitus with hyperglycemia (4) Seizure disorder Current visit: Yes Status: Chronic Category: Medical Code(s): G40.909 - Epilepsy, unspecified, not intractable, without status epilepticus (5) Hypokalemia Current visit: Yes Status: Acute Category: Medical Code(s): E87.6 - Hypokalemia continue repletion with goal of normal >3.5 (6) Acute renal failure Current visit: Yes Status: Acute Category: Medical Code(s): N17.9 - Acute kidney failure, unspecified (7) Emesis, persistent Current visit: Yes Status: Acute Category: Medical Code(s): R11.10 - Vomiting, unspecified (8) Ileus Current visit: Yes Status: Acute Category: Medical Code(s): K56.7 - Ileus, unspecified (9) Cardiomyopathy Current visit: Yes Status: Acute Category: Medical Code(s): I42.9 - Cardi omyopathy, unspecified (10) Non-STEMI (non-ST elevated myocardial infarction) Current visit: Yes Status: Acute Category: Medical Code(s): I21.4 - Non-ST elevation (NSTEMI) myocardial infarction elevated troponin overnight. No ST elevations or CP. suspected supply/demand m ismatch. Cards consulted. REcommended diagnostic heart cath to differentiate CAD vs Metabolic derangement. (11) Hypomagnesemia Current visit: Yes Status: Acute Category: Medical Code(s): E83.42 - Hypomagnesemia replete with IV, goal >1.8 - Assessment and plan all Dx Assessment and Plan for all problems:: Ms. Patricia is a critically ill 54-year-old female with improving sepsis, new concern for cardiomyopathy, persistent bowel obstruction, electrolyte disturbances. At this time we are replacing electrolytes, continuing bowel rest, continuing fluid resuscitation, continuing broad-spectrum antibiotics. Cardiology has been consulted and is planning on moving forward with a heart cath today for diagnostic purposes. Oncology was consulted, recommendations pending. Due to critical illness and multiple organ disease/failure processes, feel patient would benefit from transfer to tertiary care center for higher level of care and more extensive subspecialists. Have contacted about transfer, patient on a wait list. Will continue current course of treatment and diagnoses while with us during the waiting period for transfer. Patient remains critically ill, prognosis poor.
--- NOTE | 2019-06-03 01:06 | Progress Note ---
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 of sob and inc hr - she denied any chest pain and appeared comfortable - she had tachy rhythm with possible mat - no acute stemi but had nonspecific changes - cxr showed congestion and inc changes in lt base and labs were ordered and discussed with dr jarrell - acetone was neg and stable bmp but had positive troponin - will add vasotherm to assist resp effort and monitor resp to lasix and add card drip and 1x dose of dig with echo and card consult in am - prob nstemi and chf Exam Vital signs and Labs for Last 24 Hours: Temp Pulse Resp BP Pulse Ox 99.2 F 111 H 34 H 112/77 96 06/02/19 20:00 06/03/19 00:00 06/02/19 20:00 06/03/19 00:00 06/03/19 00:00 Laboratory Results - last 24 hr 06/02/19 05:52: POC Glucose 163 H 06/02/19 06:20: WBC 21.4 H*, RBC 4.22, Hgb 11.0 L D, Hct 35.9 L, MCV 85.1, MCH 26.0 L, MCHC 30.6 L, RDW 18.5 H, Plt Count 386 D, MPV 7.4, Neut % (Auto) 86.5 H , Lymph % (Auto) 7.6 L, [place] % (Auto) 5.8, Eos % (Auto) 0.1, Baso % (Auto) 0.1, Neut # (Auto) 18.5 H, Lymph # (Auto) 1.6, [place] # (Auto) 1.3 H, Eos # (Auto) 0.0, Baso # (Auto) 0.0, Total Counted 100, Neutrophils % (Manual) 88 H, Lymphocytes % (Manual) 7 L, Monocytes % (Manual) 5, Platelet Estimate Normal, Hypochromasia 2+, Tear Drop Cells 1+, Stomatocytes 1+ 06/02/19 06:20: Sodium 142, Potassium 3.9 D, Chloride 104, Carbon Dioxide 27, Anion Gap 14.9, BUN 11, Creatinine 1.87 H, Estimated Creat Clear 46, Estimated GFR 28 L, Est GFR ( Amer) 34 L, Glucose 158 H D, Calcium 7.5 L D, Magnesium 1.4 D, Total Bilirubin 0.3, AST 54 H, ALT 13, Alkaline Phosphatase 69, Total Protein 6.4, Albumin 2.3 L D, Globulin 4.1 H, Albumin/Globulin Ratio 0.6 L 06/02/19 11:41: POC Glucose 141 H 06/02/19 22:24: WBC 20.4 H*, RBC 4.00 L, Hgb 10.2 L, Hct 34.7 L, MCV 86.8, MCH 25.5 L, MCHC 29.4 L, RDW 18.4 H, Plt Count 365, MPV 7.3 L, Neut % (Auto) 88.7 H, Lymph % (Auto) 6.8 L, [place] % (Auto) 4.4, Eos % (Auto) 0.1, Baso % (Auto) 0.1, Neut # (Auto) 18.1 H, Lymph # (Auto) 1.4, [place] # (Auto) 0.9, Eos # (Auto) 0.0, Baso # (Auto) 0.0, Total Counted 100, Neutrophils % (Manual) 88 H, Lymphocytes % (Manual) 8 L, Monocytes % (Manual) 4, Platelet Estimate Normal, Hypochromasia 2+ 06/02/19 22:24: Sodium 142, Potassium 3.5, Chloride 104, Carbon Dioxide 25, Anion Gap 16.5 H, BUN 13, Creatinine 1.94 H, Estimated Creat Clear 44, Estimated GFR 27 L, Est GFR ( Amer) 32 L, Glucose 190 H D, Calcium 7.1 L, Troponin I 1.64 H, Acetone Level None detected 06/03/19 00:00: B-Natriuretic Peptide 1700 H I & O for Last 24 hours: Intake & Output 05/31/19 06/01/19 06/02/19 06/03/19 11:59 11:59 11:59 11:59 Intake Total 6563.833 / 6563.833 1692 / 1692 Output Total 790 / 790 900 / 900 Balance 5773.833 / 5773.833 792 / 792 Weight 225 lb 191 lb 12.8 oz 191 lb 12.799 oz - Constitutional no acute distress, obese - *Routine HEENT Exam Head: Present: normocephalic Eye: Present: EOMI, PERRL ENT: Present: mucous membranes dry - *Routine Neck Exam Absent: JVD - *Routine Respiratory Exam Present: decreased breath sounds, crackles - *Routine Cardiovascular Exam Present: murmur, S3, tachycardia - *Routine Abdominal Exam Present: soft Comments: has ng tube - *Routine Extremities Exam Absent: calf tenderness Comments: trace lower ext edema - *Routine Skin Exam Present: intact - *Routine Neurological Exam Present: alert, CN II-XII intact - Routine Psychiatric Exam Present: normal affect Assessment and Plan (1) Severe sepsis Current visit: Yes Status: Acute Category: Medical Code(s): A41.9 - Sepsis, unspecified organism; R65.20 - Severe sepsis without septic shock (2) Mixed acid base balance disorder Current visit: Yes Status: Acute Category: Medical Code(s): E87.4 - Mixed disorder of acid-base balance (3) Poorly controlled diabetes mellitus Current visit: Yes Status: Chronic Category: Medical Code(s): E11.65 - Type 2 diabetes mellitus with hyperglycemia (4) Seizure disorder Current visit: Yes Status: Chronic Category: Medical Code(s): G40.909 - Epilepsy, unspecified, not intractable, without status epilepticus (5) Hypokalemia Current visit: Yes Status: Acute Category: Medical Code(s): E87.6 - Hypokalemia (6) Acute renal failure Current visit: Yes Status: Acute Category: Medical Code(s): N17.9 - Acute kidney failure, unspecified (7) Emesis, persistent Current visit: Yes Status: Acute Category: Medical Code(s): R11.10 - Vomiting, unspecified (8) Ileus Current visit: Yes Status: Acute Category: Medical Code(s): K56.7 - Ileus, unspecified (9) Non-STEMI (non-ST elevated myocardial infarction) Current visit: Yes Status: Acute Category: Medical Code(s): I21.4 - Non-ST elevation (NSTEMI) myocardial infarction (10) CHF (congestive heart failure) Current visit: Yes Status: Acute Qualifiers: Heart failure type: unspecified Heart failure chronicity: unspecified Qualified Code(s): I50.9 - Heart failure, unspecified Category: Medical Code(s): I50.9 - Heart failure, unspecified
[2019-06-03 06:11] LABS: ABG HCO3 20.3 mmhg (22.0-26.0); ABG PCO2 31.7 mmhg (35.0-45.0); ABG PH 7.42 mmol/L (7.35-7.45); ABG PO2 54.6 mmhg (80-100); ABG TCO2 21.3 mmhg (23-27)
[2019-06-03 06:12] LABS: ABG Base Excess -4.1 mmol/L (-2.4-2.3); ABG Oxygen Saturation 84 % (90-100); Allen's Test ACCEPTABLE; Oxygen 2LPM %
[2019-06-03 06:36] LABS: Basophils % 0.1 % (0.1-2.0); Eosinophils % 0.1 % (0.1-12.0); Hematocrit 33.2 % (37.0-47.0); Hemoglobin 9.8 g/dL (12.2-16.2); Lymphocytes # 1.5 K/mm3 (0.7-4.5); Lymphocytes % 7.7 % (10-50); Mean Corpuscular HGB Conc 29.4 g/dL (31.8-35.4); Mean Corpuscular Volume 87.2 fl (81-99); Mean Platelet Volume 7.5 fl (7.4-10.4); Monocytes # 1.1 K/mm3 (0.1-1.0); Monocytes % 5.3 % (1.7-9.3); Neutrophils # 17.2 K/mm3 (1.8-7.8); Neutrophils % 86.8 % (37.0-80.0); Platelet Count 306 K/mm3 (142-424); Red Blood Count 3.81 M/mm3 (4.20-5.40); Red Cell Distribution Width 18.5 % (11.5-17.5); White Blood Count 19.9 K/mm3 (4.8-10.8)
[2019-06-03 06:49] LABS: Albumin/Globulin Ratio 0.5 (1.1-1.8); Anion Gap 14.3 mEq/L (5-15); Bilirubin,Total 0.3 mg/dL (0.2-1.0); Globulin 3.9 gm/dl (1.3-3.2); Total Protein,Serum 5.9 gm/dL (6.4-8.2)
[2019-06-03 06:50] LABS: Uric Acid 8.9 mg/dL (2.6-7.2)
--- NOTE | 2019-06-03 06:59 | Progress Note ---
Subjective Narrative: She states that she "feels pretty fine right now". She was evaluated by the primary service on 2 separate occasions overnight for increased respiratory distress. She relates having had a colonoscopy on 2 separate occasions. She states that her most recent colonoscopy was last year and was normal. She does have a histo ry of what she describes as "a decent sized colon polyp" on her first colonoscopy. Exam Vital signs and Labs for Last 24 Hours: Temp Pulse Resp BP Pulse Ox 99.2 F 110 H 34 H 96/50 L 93 L 06/02/19 20:00 06/03/19 06:00 06/02/19 20:00 06/03/19 06:00 06/03/19 06:00 Laboratory Results - last 24 hr 06/02/19 06:20: WBC 21.4 H*, RBC 4.22, Hgb 11.0 L D, Hct 35.9 L, MCV 85.1, MCH 26.0 L, MCHC 30.6 L, RDW 18.5 H, Plt Count 386 D, MPV 7.4, Neut % (Auto) 86.5 H , Lymph % (Auto) 7.6 L, [place] % (Auto) 5.8, Eos % (Auto) 0.1, Baso % (Auto) 0.1, Neut # (Auto) 18.5 H, Lymph # (Auto) 1.6, [place] # (Auto) 1.3 H, Eos # (Auto) 0.0, Baso # (Auto) 0.0, Total Counted 100, Neutrophils % (Manual) 88 H, Lymphocytes % (Manual) 7 L, Monocytes % (Manual) 5, Platelet Estimate Normal, Hypochromasia 2+, Tear Drop Cells 1+, Stomatocytes 1+ 06/02/19 06:20: Sodium 142, Potassium 3.9 D, Chloride 104, Carbon Dioxide 27, Anion Gap 14.9, BUN 11, Creatinine 1.87 H, Estimated Creat Clear 46, Estimated GFR 28 L, Est GFR ( Amer) 34 L, Glucose 158 H D, Calcium 7.5 L D, Magnesium 1.4 D, Total Bilirubin 0.3, AST 54 H, ALT 13, Alkaline Phosphatase 69, Total Protein 6.4, Albumin 2.3 L D, Globulin 4.1 H, Albumin/Globulin Ratio 0.6 L 06/02/19 11:41: POC Glucose 141 H 06/02/19 22:24: Specimen Source R radial, O2 % 2lpm, ABG pH 7.42, ABG pCO2 31.7 L, ABG pO2 54.6 L, ABG HCO3 20.3 L, ABG Total CO2 21.3 L, ABG O2 Saturation 84 L*, ABG Base Excess -4.1 L, Feliz Test Acceptable 06/02/19 22:24: WBC 20.4 H*, RBC 4.00 L, Hgb 10.2 L, Hct 34.7 L, MCV 86.8, MCH 25.5 L, MCHC 29.4 L, RDW 18.4 H, Plt Count 365, MPV 7.3 L, Neut % (Auto) 88.7 H, Lymph % (Auto) 6.8 L, [place] % (Auto) 4.4, Eos % (Auto) 0.1, Baso % (Auto) 0.1, Neut # (Auto) 18.1 H, Lymph # (Auto) 1.4, [place] # (Auto) 0.9, Eos # (Auto) 0.0, Baso # (Auto) 0.0, Total Counted 100, Neutrophils % (Manual) 88 H, Lymphocytes % (Manual) 8 L, Monocytes % (Manual) 4, Platelet Estimate Normal, Hypochromasia 2+ 06/02/19 22:24: Sodium 142, Potassium 3.5, Chloride 104, Carbon Dioxide 25, Anion Gap 16.5 H, BUN 13, Creatinine 1.94 H, Estimated Creat Clear 44, Estimated GFR 27 L, Est GFR ( Amer) 32 L, Glucose 190 H D, Calcium 7.1 L, Troponin I 1.64 H, Acetone Level None detected 06/03/19 00:00: B-Natriuretic Peptide 1700 H 06/03/19 05:27: WBC 19.9 H, RBC 3.81 L, Hgb 9.8 L, Hct 33.2 L, MCV 87.2, MCH 25.7 L, MCHC 29.4 L, RDW 18.5 H, Plt Count 306, MPV 7.5, Neut % (Auto) 86.8 H, Lymph % (Auto) 7.7 L, [place] % (Auto) 5.3, Eos % (Auto) 0.1, Baso % (Auto) 0.1, Neut # (Auto) 17.2 H, Lymph # (Auto) 1.5, [place] # (Auto) 1.1 H, Eos # (Auto) 0.0, Baso # (Auto) 0.0 I & O for Last 24 hours: Intake & Output 05/31/19 06/01/19 06/02/19 06/03/19 11:59 11:59 11:59 11:59 Intake Total 6563.833 / 6563.833 3719 / 3719 Output Total 790 / 790 1480 / 1480 Balance 5773.833 / 5773.833 2239 / 2239 Weight 225 lb 191 lb 12.8 oz 195 lb 1.6 oz - Constitutional no acute distress - *Routine Abdominal Exam Present: soft Progress Note: A&P (1) Severe sepsis Status: Acute Current Visit: Yes (2) Mixed acid base balance disorder Status: Acute Current Visit: Yes (3) Poorly controlled diabetes mellitus Status: Chronic Current Visit: Yes (4) Seizure disorder Status: Chronic Current Visit: Yes (5) Hypokalemia Status: Acute Current Visit: Yes (6) Acute renal failure Status: Acute Current Visit: Yes (7) Emesis, persistent Status: Acute Current Visit: Yes (8) Ileus Status: Acute Assessment and plan: No evidence of small bowel obstruction on noncontrast CT yesterday. Questionable distal transverse colon soft tissue mass versus focal thickening versus nondistention noted. The radiographic findings with regard to her distal transverse colon may represent neoplastic disease; however, focal thickening or transient changes from nondistention are also a possibility. She has had a fairly recent colonoscopy and this can certainly be repeated when she is medically stable. However, it may be preferable to perform a barium enema when she is medically stable as this would potentially give additional information without need of sedation. If any abnormality is noted on barium enema a colonoscopy could then be completed. Current Visit: Yes (9) Non-STEMI (non-ST elevated myocardial infarction) Status: Acute Current Visit: Yes (10) CHF (congestive heart failure) Status: Acute Current Visit: Yes
--- NOTE | 2019-06-03 07:58 | Consult Report ---
History of Present Illness Consult date: 06/03/19 Requesting physician: Harman Forde Consult reason: congestive heart failure Chief complaint: SOA, elevated troponin, tachycardia Additional Medical History:: 1. CVA with left side paralysis, 1992 2. Lymphoma, 2012, s/p chemo and radiation therapy (left chest area) A. Followed by Dr. Duong 3. Remote tobacco use, stopped 2012 A. 60 pack yr history 4. DM, treated for 2 yrs 5. HTN 6. Hyperlipidemia 7. Seizure Disorder, 1993 A. Last one 2 days ago due to inability to take meds secondary to N/Vomiting. History of present illness: 54 yo WF admitted through the ER for persistent nausea and vomiting/dry heaving. Recently admitted to [facility] for same diagnosis for 4 days without etiology. Symptoms resolved for two days during which time she was discharged home. Symptoms returned and after 3 days without meds, pt developed seizure which prompted [facility] ER visit and admission. Noted to be in a tachycardic rhythm that was unresponsive to adenosine. Due to diagnosis of sepsis, she received 6 liters of fluid within the first 24 hrs with some improvement clinically. She has had NG tube placed and has been started on broad spectrum antibiotics. Last evening, SOA became worse and ER MD notified with subsequent evaluation including labs and institution of diltiazem gtt for rate control. Troponin returned elevatd at 1.64 with BNP 1700 and CXR with evidence of CHF for which IV lasix was given. This AM pt states she is breathing better. She denies any chest pain. EKG last evening shows sinus tach at 138 bpm with LAD, PRWP anteriorly with NSSTTW abnormalities laterally. Preliminary echo this AM reveals reduced LVEF of 20-30% with dilated LV and moderate MR. Cardiology consulted for evaluation. [facility] History Medical History: Reports:: Cancer (non-hodgkins lymphoma in abdomen and (L) lung), Chronic Obstructive Pulmonary Disease (COPD), Diabetes Mellitus Type 2, Hyperlipidemia, Seizures Denies:: Diabetes Mellitus Type 1, MRSA *Have you ever received a pneumonia vaccine?: Yes *Have you received a flu vaccine this season?: Yes Other Medical History: Reports: Arthritis, Chemotherapy (2012 - 2014), Radiation Therapy (2018) Laterality Cases: Right: Carpal Tunnel Release Other Surgeries: Yes: Cholecystectomy, Colonoscopy, EGD, Hernia Repair (2 umbilical hernia repairs /c mesh), Hysterectomy-Total, Hysterectomy-Partial, Other (port placement) Amputation: No Fractures: No - *Social History Educational Level: Completed High School Smoking Status: Former smoker #Yrs smoked (if former smoker): 30 Smoking End Date: 08/07/2014 Alcohol Intake: never Substance Use Type: denies use *Occupational Status:: disabled Housing: other Household Members: spouse, children *Travel in the last 8 weeks: None Family Hx:: Cancer, Coronary Artery Disease, Heart Attack Meds Home Medications Medication Instructions Recorded Confirmed Type alendronate 35 mg tablet 35 mg PO WEEKLY 11/12/17 06/02/19 History aspirin 325 mg tablet 325 mg PO QDAY 11/12/17 06/01/19 History atorvastatin 40 mg tablet 40 mg PO HS 11/12/17 06/01/19 History furosemide 40 mg tablet 40 mg PO DAILY 11/12/17 06/02/19 History levetiracetam 750 mg tablet 750 mg PO Q12H 11/12/17 06/01/19 History meclizine 12.5 mg tablet 12.5 mg PO TID tab 11/12/17 06/01/19 History metformin 500 mg tablet 1,000 mg PO BID 11/12/17 06/01/19 History omeprazole 20 mg capsule,delayed 20 mg PO DAILY 11/12/17 06/02/19 History release tramadol 50 mg tablet 50 mg PO BID tab 11/12/17 06/01/19 History cholecalciferol (vitamin D3) 1,000 1,000 unit PO DAILY 02/11/18 06/01/19 History unit capsule Ondansetron HCl [Ondansetron 8mg 8 mg PO TIDP PRN 05/05/19 06/02/19 History Tablet] Promethazine HCl [Phenergan 25mg 25 mg PO Q6H PRN 05/05/19 06/01/19 History tab] Propranolol HCl 10 mg PO BID 05/05/19 06/01/19 History SUMAtriptan succinate [Sumatriptan 50 mg PO NEEDED PRN 05/05/19 06/02/19 History Succinate] Amitriptyline HCl 100 mg PO HS 06/02/19 06/02/19 History Fluoxetine HCl [Prozac 10mg 10 mg PO DAILY 06/02/19 06/02/19 History Capsule] Allergies Allergy/AdvReac Type Severity Reaction Status Date / Time tetanus and diphtheria Allergy Severe Hives Verified 06/01/19 14:36 toxoids [TETANUS & DIPHTHERIA TOXOIDS] Review of Systems - *Cardiovascular Reports shortness of breath, Reports fast heart rate, Denies chest pain - *Respiratory Reports cough, Reports shortness of breath - *Gastrointestinal Reports abdominal pain, Reports nausea, Reports vomiting - *Genitourinary Denies blood in urine - *Musculoskeletal Denies joint pain, Denies back pain - *Neurologic Reports seizure-like activity, Denies fainting, Denies tingling Exam Vital signs and Labs for Last 24 Hours: Temp Pulse Resp BP Pulse Ox 99.2 F 110 H 34 H 96/50 L 93 L 06/02/19 20:00 06/03/19 06:00 06/02/19 20:00 06/03/19 06:00 06/03/19 06:00 Laboratory Results - last 24 hr 06/01/19 08:58: POC Glucose 337 H* 06/02/19 06:20: WBC 21.4 H*, RBC 4.22, Hgb 11.0 L D, Hct 35.9 L, MCV 85.1, MCH 26.0 L, MCHC 30.6 L, RDW 18.5 H, Plt Count 386 D, MPV 7.4, Neut % (Auto) 86.5 H , Lymph % (Auto) 7.6 L, Daggett % (Auto) 5.8, Eos % (Auto) 0.1, Baso % (Auto) 0.1, Neut # (Auto) 18.5 H, Lymph # (Auto) 1.6, Daggett # (Auto) 1.3 H, Eos # (Auto) 0.0, Baso # (Auto) 0.0, Total Counted 100, Neutrophils % (Manual) 88 H, Lymphocytes % (Manual) 7 L, Monocytes % (Manual) 5, Platelet Estimate Normal, Hypochromasia 2+, Tear Drop Cells 1+, Stomatocytes 1+ 06/02/19 11:41: POC Glucose 141 H 06/02/19 22:24: Specimen Source R radial, O2 % 2lpm, ABG pH 7.42, ABG pCO2 31.7 L, ABG pO2 54.6 L, ABG HCO3 20.3 L, ABG Total CO2 21.3 L, ABG O2 Saturation 84 L*, ABG Base Excess -4.1 L, Feliz Test Acceptable 06/02/19 22:24: WBC 20.4 H*, RBC 4.00 L, Hgb 10.2 L, Hct 34.7 L, MCV 86.8, MCH 25.5 L, MCHC 29.4 L, RDW 18.4 H, Plt Count 365, MPV 7.3 L, Neut % (Auto) 88.7 H, Lymph % (Auto) 6.8 L, Daggett % (Auto) 4.4, Eos % (Auto) 0.1, Baso % (Auto) 0.1, Neut # (Auto) 18.1 H, Lymph # (Auto) 1.4, Daggett # (Auto) 0.9, Eos # (Auto) 0.0, Baso # (Auto) 0.0, Total Counted 100, Neutrophils % (Manual) 88 H, Lymphocytes % (Manual) 8 L, Monocytes % (Manual) 4, Platelet Estimate Normal, Hypochromasia 2+ 06/02/19 22:24: Sodium 142, Potassium 3.5, Chloride 104, Carbon Dioxide 25, Anion Gap 16.5 H, BUN 13, Creatinine 1.94 H, Estimated Creat Clear 44, Estimated GFR 27 L, Est GFR ( Amer) 32 L, Glucose 190 H D, Calcium 7.1 L, Troponin I 1.64 H, Acetone Level None detected 06/03/19 00:00: B-Natriuretic Peptide 1700 H 06/03/19 05:27: WBC 19.9 H, RBC 3.81 L, Hgb 9.8 L, Hct 33.2 L, MCV 87.2, MCH 25.7 L, MCHC 29.4 L, RDW 18.5 H, Plt Count 306, MPV 7.5, Neut % (Auto) 86.8 H, Lymph % (Auto) 7.7 L, Daggett % (Auto) 5.3, Eos % (Auto) 0.1, Baso % (Auto) 0.1, Neut # (Auto) 17.2 H, Lymph # (Auto) 1.5, Daggett # (Auto) 1.1 H, Eos # (Auto) 0.0, Baso # (Auto) 0.0 06/03/19 05:27: Sodium 142, Potassium 3.3 L, Chloride 104, Carbon Dioxide 27, Anion Gap 14.3, BUN 13, Creatinine 1.75 H, Estimated Creat Clear 50, Estimated GFR 30 L, Est GFR ( Amer) 36 L, Glucose 148 H D, Calcium 7.0 L, Total Bilirubin 0.3, AST 70 H D, ALT 19 D, Alkaline Phosphatase 66, Total Protein 5.9 L, Albumin 2.0 L D, Globulin 3.9 H, Albumin/Globulin Ratio 0.5 L 06/03/19 05:27: Magnesium 1.1 L D 06/03/19 05:27: Uric Acid 8.9 H, Lactate Dehydrogenase 400 H I & O for Last 24 hours: Intake & Output 05/31/19 06/01/19 06/02/19 06/03/19 11:59 11:59 11:59 11:59 Intake Total 6563.833 / 6563.833 3719 / 3719 Output Total 790 / 790 1480 / 1480 Balance 5773.833 / 5773.833 2239 / 2239 Weight 225 lb 191 lb 12.8 oz 195 lb 1.6 oz - *Routine HEENT Exam Head: Present: normocephalic Eye: Present: EOMI, PERRL ENT: Present: mucous membranes moist - *Routine Neck Exam Present: supple. Absent: JVD, carotid bruit - *Routine Respiratory Exam Present: decreased breath sounds, diminished air movement. Absent: accessory muscle use, rales, rhonchi, wheezes - *Routine Cardiovascular Exam Present: tachycardia. Absent: murmur, gallop, rubs - *Routine Abdominal Exam Present: soft. Absent: tenderness, distended, guarding - *Routine Extremities Exam Present: edema. Absent: calf tenderness Comments: Left side paralyzed - *Routine Neurological Exam Present: alert, oriented X3 Assessment and Plan (1) Severe sepsis Current visit: Yes Status: Acute Category: Medical Code(s): A41.9 - Sepsis, unspecified organism; R65.20 - Severe sepsis without septic shock (2) Mixed acid base balance disorder Current visit: Yes Status: Acute Category: Medical Code(s): E87.4 - Mixed disorder of acid-base balance (3) Poorly controlled diabetes mellitus Current visit: Yes Status: Chronic Category: Medical Code(s): E11.65 - Type 2 diabetes mellitus with hyperglycemia (4) Seizure disorder Current visit: Yes Status: Chronic Category: Medical Code(s): G40.909 - Epilepsy, unspecified, not intractable, without status epilepticus (5) Hypokalemia Current visit: Yes Status: Acute Category: Medical Code(s): E87.6 - Hypokalemia (6) Acute renal failure Current visit: Yes Status: Acute Category: Medical Code(s): N17.9 - Acute kidney failure, unspecified (7) Emesis, persistent Current visit: Yes Status: Acute Category: Medical Code(s): R11.10 - Vomiting, unspecified (8) Ileus Current visit: Yes Status: Acute Category: Medical Code(s): K56.7 - Ileus, unspecified (9) Non-STEMI (non-ST elevated myocardial infarction) Current visit: Yes Status: Acute Category: Medical Code(s): I21.4 - Non-ST elevation (NSTEMI) myocardial infarction (10) CHF (congestive heart failure) Current visit: Yes Status: Acute Qualifiers: Heart failure type: unspecified Heart failure chronicity: unspecified Qualified Code(s): I50.9 - Heart failure, unspecified Category: Medical Code(s): I50.9 - Heart failure, unspecified (11) Cardiomyopathy Current visit: Yes Status: Acute Category: Medical Code(s): I42.9 - Cardiomyopathy, unspecified Etiology uncertain at this time. Recommend cardiac cath to evaluate whether this is due to coronary artery disease or related to sepsis/mixed acid base disorder. - Assessment and plan all Dx Assessment and Plan for all problems:: 1. Newly diagnosed cardiomyopathy. Unclear if this is related to current sepsis with mixed acid-base disorder or is this due to coronary artery disease. Recommend cardiac cath this AM for further evaluation. 2. Continue diltiazem gtt (current rate at 5 mg/hr) for rate control for now but will need to discontinue and switch to BB and VENICE or ARB (when renal status stable) for treatment of cardiomyopathy after cardiac cath. She received two doses of digoxin overnight (total of 0.5 mg) 3. Replace magnesium and potassium. 4. Continue ASA, atorvastatin and propranolol (10 mg BID). 5. Oncology to see patient today as well.
--- NOTE | 2019-06-03 08:56 | Electrocardiograph Report ---
APPROVED REPORT Exam: Resting ECG HR:137 bpm ECG Measurements Heart Rate 137 AXES QRSd 102 QRS -35 QT 400 T149 QTc 604 <Conclusion> Supraventricular tachycardia with fusion complexes Left axis deviation Low voltage QRS Incomplete right bundle branch block Septal infarct, age undetermined Possible Lateral infarct, age undetermined Abnormal ECG Electronically signed by : Jimenez Mead, 06/03/2019 08:56:02
--- NOTE | 2019-06-03 13:09 | Consult Report ---
*Admission Date: 06/02/19 *History of present illness: 54 yo wf admitted to the hospital for intractable n/v, possible seizure activit y, dehydration, diarrhea. per cardiology there is concern for nstemi with EF of 20%. she reports she has been feeling poorly for about 3 weeks. she was admitted to [facility] for n/v. she reports she was given antiemetics and discharged home. she reported to ed here 2 days ago with n/v and possible seizure. ct scan done and demonstrated pneumonia and abrupt transition point in the colon raising concern for mass. surgery has been consulted and feel she is too unstable to proceed with scope. cardiology would like to proceed with cardiac cath. pt has h/o DLBCL in 2015 treated with chemo and recurrent disease in lung treated with SBRT at last year. pt has ng in place and this has significantly improved n/v. she reports she is having bowel movements. on review of labs her uric acid and ldh are slightly elevated. she also renal insuff has improved since admission. [facility] History Medical History: Reports:: Cancer (non-hodgkins lymphoma in abdomen and (L) lung), Chronic Obstructive Pulmonary Disease (COPD), Diabetes Mellitus Type 2, Hyperlipidemia, Seizures Denies:: Diabetes Mellitus Type 1, MRSA *Have you ever received a pneumonia vaccine?: Yes *Have you received a flu vaccine this season?: Yes Other Medical History: Reports: Arthritis, Chemotherapy (2012 - 2014), Radiation Therapy (2018) Laterality Cases: Right: Carpal Tunnel Release Other Surgeries: Yes: Cholecystectomy, Colonoscopy, EGD, Hernia Repair (2 umbilical hernia repairs /c mesh), Hysterectomy-Total, Hysterectomy-Partial, Ot her (port placement) Amputation: No Fractures: No - *Social History Educational Level: Completed High School Smoking Status: Former smoker #Yrs smoked (if former smoker): 30 Smoking End Date: 08/07/2014 Alcohol Intake: never Substance Use Type: denies use *Occupational Status:: disabled Housing: other Household Members: spouse, children *Travel in the last 8 weeks: None Family Hx:: Cancer, Coronary Artery Disease, Heart Attack Review of Systems - Review of Systems Review of systems:: pertinent systems reviewed and negative unless documented below - *Neurologic Reports seizure-like activity, Denies fainting, Denies tingling Meds Home Medications Medication Instructions Recorded Confirmed Type alendronate 35 mg tablet 35 mg PO WEEKLY 11/12/17 06/02/19 History aspirin 325 mg tablet 325 mg PO QDAY 11/12/17 06/01/19 History atorvastatin 40 mg tablet 40 mg PO HS 11/12/17 06/01/19 History furosemide 40 mg tablet 40 mg PO DAILY 11/12/17 06/02/19 History levetiracetam 750 mg tablet 750 mg PO Q12H 11/12/17 06/01/19 History meclizine 12.5 mg tablet 12.5 mg PO TID tab 11/12/17 06/01/19 History metformin 500 mg tablet 1,000 mg PO BID 11/12/17 06/01/19 History omeprazole 20 mg capsule,delayed 20 mg PO DAILY 11/12/17 06/02/19 History release tramadol 50 mg tablet 50 mg PO BID tab 11/12/17 06/01/19 History cholecalciferol (vitamin D3) 1,000 1,000 unit PO DAILY 02/11/18 06/01/19 History unit capsule Ondansetron HCl [Ondansetron 8mg 8 mg PO TIDP PRN 05/05/19 06/02/19 History Tablet] Promethazine HCl [Phenergan 25mg 25 mg PO Q6H PRN 05/05/19 06/01/19 History tab] Propranolol HCl 10 mg PO BID 05/05/19 06/01/19 History SUMAtriptan succinate [Sumatriptan 50 mg PO NEEDED PRN 05/05/19 06/02/19 History Succinate] Amitriptyline HCl 100 mg PO HS 06/02/19 06/02/19 History Fluoxetine HCl [Prozac 10mg 10 mg PO DAILY 06/02/19 06/02/19 History Capsule] Allergies Allergy/AdvReac Type Severity Reaction Status Date / Time tetanus and diphtheria Allergy Severe Hives Verified 06/01/19 14:36 toxoids [TETANUS & DIPHTHERIA TOXOIDS] Exam Vital signs and Labs for Last 24 Hours: Temp Pulse Resp BP Pulse Ox 98.5 F 115 H 23 110/71 97 06/03/19 12:31 06/03/19 12:45 06/03/19 12:31 06/03/19 12:31 06/03/19 12:45 Laboratory Results - last 24 hr 06/01/19 08:58: POC Glucose 337 H* 06/02/19 06:20: Hgb 11.0 L D 06/02/19 22:24: Specimen Source R radial, O2 % 2lpm, ABG pH 7.42, ABG pCO2 31.7 L, ABG pO2 54.6 L, ABG HCO3 20.3 L, ABG Total CO2 21.3 L, ABG O2 Saturation 84 L*, ABG Base Excess -4.1 L, Feliz Test Acceptable 06/02/19 22:24: WBC 20.4 H*, RBC 4.00 L, Hgb 10.2 L, Hct 34.7 L, MCV 86.8, MCH 25.5 L, MCHC 29.4 L, RDW 18.4 H, Plt Count 365, MPV 7.3 L, Neut % (Auto) 88.7 H, Lymph % (Auto) 6.8 L, Phillips % (Auto) 4.4, Eos % (Auto) 0.1, Baso % (Auto) 0.1, Neut # (Auto) 18.1 H, Lymph # (Auto) 1.4, Phillips # (Auto) 0.9, Eos # (Auto) 0.0, Baso # (Auto) 0.0, Total Counted 100, Neutrophils % (Manual) 88 H, Lymphocytes % (Manual) 8 L, Monocytes % (Manual) 4, Platelet Estimate Normal, Hypochromasia 2+ 06/02/19 22:24: Sodium 142, Potassium 3.5, Chloride 104, Carbon Dioxide 25, Anion Gap 16.5 H, BUN 13, Creatinine 1.94 H, Estimated Creat Clear 44, Estimated GFR 27 L, Est GFR ( Amer) 32 L, Glucose 190 H D, Calcium 7.1 L, Troponin I 1.64 H, Acetone Level None detected 06/03/19 00:00: B-Natriuretic Peptide 1700 H 06/03/19 05:27: WBC 19.9 H, RBC 3.81 L, Hgb 9.8 L, Hct 33.2 L, MCV 87.2, MCH 25.7 L, MCHC 29.4 L, RDW 18.5 H, Plt Count 306, MPV 7.5, Neut % (Auto) 86.8 H, Lymph % (Auto) 7.7 L, Phillips % (Auto) 5.3, Eos % (Auto) 0.1, Baso % (Auto) 0.1, Neut # (Auto) 17.2 H, Lymph # (Auto) 1.5, Phillips # (Auto) 1.1 H, Eos # (Auto) 0.0, Baso # (Auto) 0.0 06/03/19 05:27: Sodium 142, Potassium 3.3 L, Chloride 104, Carbon Dioxide 27, Anion Gap 14.3, BUN 13, Creatinine 1.75 H, Estimated Creat Clear 50, Estimated GFR 30 L, Est GFR ( Amer) 36 L, Glucose 148 H D, Calcium 7.0 L, Total Bilirubin 0.3, AST 70 H D, ALT 19 D, Alkaline Phosphatase 66, Total Protein 5.9 L, Albumin 2.0 L D, Globulin 3.9 H, Albumin/Globulin Ratio 0.5 L 06/03/19 05:27: Magnesium 1.1 L D 06/03/19 05:27: Uric Acid 8.9 H, Lactate Dehydrogenase 400 H I & O for Last 24 hours: Intake & Output 06/01/19 06/02/19 06/03/19 06/04/19 11:59 11:59 11:59 11:59 Intake Total 6563.833 / 6563.833 4119 / 4119 Output Total 790 / 790 1480 / 1480 Balance 5773.833 / 5773.833 2639 / 2639 Weight 225 lb 191 lb 12.8 oz 195 lb 1.6 oz Microbiology Reports for the Last 24 Hours: Microbiology 06/01/19 11:03 Blood Blood Culture - Preliminary NO GROWTH AFTER 48 HOURS 06/01/19 11:03 Blood Blood Culture - Preliminary NO GROWTH AFTER 48 HOURS Internal Medicine - CN: Reslt - Labs CBC & Chem 7: 06/03/19 05:27 06/03/19 05:27 Labs: Short CBC 06/02/19 06/02/19 06/03/19 Range/Units 06:20 22:24 05:27 WBC 20.4 H* 19.9 H (4.8-10.8) K/mm3 Hgb 11.0 L D 10.2 L 9.8 L (12.2-16.2) g/dL Hct 34.7 L 33.2 L (37.0-47.0) % Plt Count 365 306 (142-424) K/mm3 BMP 06/02/19 06/03/19 22:24 05:27 Sodium 142 142 Potassium 3.5 3.3 L Chloride 104 104 Carbon Dioxide 25 27 BUN 13 13 Creatinine 1.94 H 1.75 H Glucose 190 H D 148 H D Calcium 7.1 L 7.0 L Cardiac Enzymes 06/02/19 Range/Units 22:24 Troponin I 1.64 H (0.00-0.06) ng/ml Liver Function 06/03/19 Range/Units 05:27 Total Bilirubin 0.3 (0.2-1.0) mg/dL AST 70 H D (15-37) U/L ALT 19 D (12-78) U/L Alkaline Phosphatase 66 (46-116) U/L Albumin 2.0 L D (3.4-5.0) gm/dL - ABG Interpretation ABG results: 06/01/19 06/02/19 15:13 22:24 ABG pH 7.47 H 7.42 ABG pCO2 40.6 31.7 L ABG pO2 76.7 L 54.6 L ABG HCO3 28.6 H 20.3 L ABG Total CO2 29.9 H 21.3 L ABG O2 Saturation 94 84 L* ABG Base Excess 4.9 H -4.1 L Assessment and Plan (1) Severe sepsis Current visit: Yes Status: Acute Category: Medical Code(s): A41.9 - Sepsis, unspecified organism; R65.20 - Severe sepsis without septic shock (2) Mixed acid base balance disorder Current visit: Yes Status: Acute Category: Medical Code(s): E87.4 - Mixed disorder of acid-base balance (3) Poorly controlled diabetes mellitus Current visit: Yes Status: Chronic Category: Medical Code(s): E11.65 - Type 2 diabetes mellitus with hyperglycemia (4) Seizure disorder Current visit: Yes Status: Chronic Category: Medical Code(s): G40.909 - Epilepsy, unspecified, not intractable, without status epilepticus (5) Hypokalemia Current visit: Yes Status: Acute Category: Medical Code(s): E87.6 - Hypokalemia (6) Acute renal failure Current visit: Yes Status: Acute Category: Medical Code(s): N17.9 - Acute kidney failure, unspecified (7) Emesis, persistent Current visit: Yes Status: Acute Category: Medical Code(s): R11.10 - Vomiting, unspecified (8) Ileus Current visit: Yes Status: Acute Category: Medical Code(s): K56.7 - Ileus, unspecified - Assessment and plan all Dx Assessment and Plan for all problems:: pt admitted for intractable n/v, possible seizure, dehydration. she has remote h/o lymphoma. no known active lymphoma on last scans. concern on recent imaging is that there is a colonic mass causing abrupt transition. surgery has deemed her too unstable for scope. when stable she needs a scope to determine if indeed she does have a colonic mass and if so needs biopsy in order to determine pathology. of course recurrent lymphoma is in the differential as is new colon cancer or benign etiology. from an oncology standpoint we can not proceed with treatment course until we have a definite diagnosis of malignancy. there is also concern for nstemi with low EF. I have no objection from oncology standpoint to proceed with cardiac w/up as cardiology deems necessary or transfer if necessary as suggested by pcp.
--- NOTE | 2019-06-03 18:00 | Discharge Summary ---
General - General Admission date:: 06/01/19 Discharge date: 06/03/19 HPI HPI: Mrs. Patricia is a 54-year-old female with Hx of recurrent diffuse large B-cell lymphoma (s/p SBRT to lung nodule last year), NIDDM, HTN, Hx of CVA and left sided paralysis, Seizure disorder who presented to the ER due to onset of seizure on 06/01 at home. She lives with her and daughter in [facility] and has been sick off and on for the past several weeks. They report that she was recently admitted to [facility] with similar episode, uncontrolled retching, seizure, infection/sepsis, inability to keep p.o. fluids. Was able to restart eating and was discharged home. Soon after getting home has been unable to keep down any food or fluids or medications. For the past 3 to 4 days she has been retching uncontrollably with no p.o. intake and had no meds in the past 2 days. This led to her onset of seizure leading to her presentation to the ER. In the ER she was noted to have significantly elevated lactate, tachycardia, ANNALISE with creatinine of 2.2 (baseline presumed normal), and leukocytosis. Patient was initiated on ceftriaxone, has received 3 L bolus IV fluids, and antiemetics. Admitted to medicine for seizure disorder and sepsis. After being assessed on the floor, patient has been noted to continue to be tachycardic throughout the afternoon. Has developed a fever greater than 101. Continues to remain unable to tolerate oral intake with retching every 5 to 10 minutes. Emesis is nonproductive at this time. Patient remains tachycardic in sinus tachycardia. Further review of Pts hx established her to be a far more complex medical patient with treatment of cancer as follows: She was initially diagnosed in 2012. She is status post 6 cycles of CHOPR receiving her last chemotherapy doses February 16, 2014. Then she completed a year of monthly Rituxan April 13, 2015. Recently completed SBRT under the direction of Dr. River Easley at the [facility] for recurrent diffuse large B-cell lymphoma in the left lung. Tolerated this treatment very well overall. 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 Her last CT scan of the abdomen and pelvis from July 2018 showed no evidence of recurrent lymphoma. Hospital Course Hospital Course: Patient was assessed after arrival to acute care and found to be persistently tachycardic, meeting severe sepsis criteria, and had distended tender abdomen. Due to her persistent symptoms consisting of what appeared to be SVT on EKG in light of aggressive fluid resuscitation, adenosine was trialed to break her tachyarrhythmia. There was no change in her tachyarrhythmia causing reevaluation of her overall picture. It was noted at this time that she had a severe mixed acid-base abnormality consisting of metabolic acidosis AG on arrival >40. with inadequate respiratory compensation and respiratory acidosis on concurrent metabolic alkalosis. Suspect patient's emesis led to dehydration and metabolic alkalosis leading to ANNALISE, elevated lactate and metabolic acidosis, all in the setting of chronic respiratory failure and elevated pCO2 with res piratory acidosis/COPD. Due to persistent retching, tachycardia, no improvement after initial treatment, and failure to convert SVT, patient was reinitiated on IV fluids with an additional 3 L of lactated Ringer's. Repeat lab work showed resolution of her elevated lactate and improvement in kidney function. At this time as well KUB was obtained due to persistent emesis showing ileus/possible shayla wel obstruction. NG was placed that evening for decompression leading to improvement in abdominal symptoms and resolution of emesis. Antibiotic coverage broadened. Patient continued to have tachycardia suspected secondary to her sepsis. Surgery was consulted who recommended CT which showed thickening of transverse colon and abrupt appearance of possible obstruction. Given clinical instability , unable to perform colonoscopy. Over second night of admission patient developed an NSTEMI with elevated troponin of 1.6 and stable EKG with no ST elevation however concerning age undetermined anteroseptal infarct. Cardiology was consulted and a Cardizem drip was initiated. Echocardiogram performed at bedside showing EF under 30% with apical hypokinesis. Cardiology recommended diagnostic heart cath showing severely reduced EF of less than 20% and no flow- limiting coronary obstructions necessitating intervention. It was felt that this time the patient's condition was secondary to cardiomy opathy, etiology suspected secondary to her previous chemotherapy, leading to heart failure and severe illness. was contacted for transfer and further management. Patient initiated on milrinone drip and digoxin and Entresto at recommendation of cardiology at [facility] s/p heart cath. Patient continues to be critically ill. On high flow nasal cannula, 40% FiO2. Blood pressures normal during admission with lows documented from an ankle cuff but consistently normal when assessed on right upper extremity. Discussed severity of illness with patient and family and they are amenable to transfer for further management Objective Vital signs: Temp Pulse Resp BP Pulse Ox 97.1 F L 108 H 29 H 134/65 96 06/03/19 15:25 06/03/19 17:40 06/03/19 17:40 06/03/19 17:40 06/03/19 17:40 Results Labs on day of discharge: Labs from last 24 hours 06/03/19 06/03/19 06/03/19 16:50 05:27 05:27 WBC RBC Hgb Hct MCV MCH MCHC RDW Plt Count MPV Neut % (Auto) Lymph % (Auto) Mayes % (Auto) Eos % (Auto) Baso % (Auto) Neut # (Auto) Lymph # (Auto) Mayes # (Auto) Eos # (Auto) Baso # (Auto) Total Counted Neutrophils % (Manual) Lymphocytes % (Manual) Monocytes % (Manual) Platelet Estimate Hypochromasia Specimen Source O2 % ABG pH ABG pCO2 ABG pO2 ABG HCO3 ABG Total CO2 ABG O2 Saturation ABG Base Excess Feliz Test Sodium Potassium Chloride Carbon Dioxide Anion Gap BUN Creatinine Estimated Creat Clear Estimated GFR Est GFR ( Amer) Glucose POC Glucose 126 H Uric Acid 8.9 H Calcium Magnesium 1.1 L D Total Bilirubin AST ALT Alkaline Phosphatase Lactate Dehydrogenase 400 H Troponin I B-Natriuretic Peptide Total Protein Albumin Globulin Albumin/Globulin Ratio Acetone Level 06/03/19 06/03/19 06/03/19 05:27 05:27 00:00 WBC 19.9 H RBC 3.81 L Hgb 9.8 L Hct 33.2 L MCV 87.2 MCH 25.7 L MCHC 29.4 L RDW 18.5 H Plt Count 306 MPV 7.5 Neut % (Auto) 86.8 H Lymph % (Auto) 7.7 L Mayes % (Auto) 5.3 Eos % (Auto) 0.1 Baso % (Auto) 0.1 Neut # (Auto) 17.2 H Lymph # (Auto) 1.5 Mayes # (Auto) 1.1 H Eos # (Auto) 0.0 Baso # (Auto) 0.0 Total Counted Neutrophils % (Manual) Lymphocytes % (Manual) Monocytes % (Manual) Platelet Estimate Hypochromasia Specimen Source O2 % ABG pH ABG pCO2 ABG pO2 ABG HCO3 ABG Total CO2 ABG O2 Saturation ABG Base Excess Feliz Test Sodium 142 Potassium 3.3 L Chloride 104 Carbon Dioxide 27 Anion Gap 14.3 BUN 13 Creatinine 1.75 H Estimated Creat Clear 50 Estimated GFR 30 L Est GFR ( Amer) 36 L Glucose 148 H D POC Glucose Uric Acid Calcium 7.0 L Magnesium Total Bilirubin 0.3 AST 70 H D ALT 19 D Alkaline Phosphatase 66 Lactate Dehydrogenase Troponin I B-Natriuretic Peptide 1700 H Total Protein 5.9 L Albumin 2.0 L D Globulin 3.9 H Albumin/Globulin Ratio 0.5 L Acetone Level 06/02/19 06/02/19 06/02/19 22:24 22:24 22:24 WBC 20.4 H* RBC 4.00 L Hgb 10.2 L Hct 34.7 L MCV 86.8 MCH 25.5 L MCHC 29.4 L RDW 18.4 H Plt Count 365 MPV 7.3 L Neut % (Auto) 88.7 H Lymph % (Auto) 6.8 L Mayes % (Auto) 4.4 Eos % (Auto) 0.1 Baso % (Auto) 0.1 Neut # (Auto) 18.1 H Lymph # (Auto) 1.4 Mayes # (Auto) 0.9 Eos # (Auto) 0.0 Baso # (Auto) 0.0 Total Counted 100 Neutrophils % (Manual) 88 H Lymphocytes % (Manual) 8 L Monocytes % (Manual) 4 Platelet Estimate Normal Hypochromasia 2+ Specimen Source R radial O2 % 2lpm ABG pH 7.42 ABG pCO2 31.7 L ABG pO2 54.6 L ABG HCO3 20.3 L ABG Total CO2 21.3 L ABG O2 Saturation 84 L* ABG Base Excess -4.1 L Feliz Test Acceptable Sodium 142 Potassium 3.5 Chloride 104 Carbon Dioxide 25 Anion Gap 16.5 H BUN 13 Creatinine 1.94 H Estimated Creat Clear 44 Estimated GFR 27 L Est GFR ( Amer) 32 L Glucose 190 H D POC Glucose Uric Acid Calcium 7.1 L Magnesium Total Bilirubin AST ALT Alkaline Phosphatase Lactate Dehydrogenase Troponin I 1.64 H B-Natriuretic Peptide Total Protein Albumin Globulin Albumin/Globulin Ratio Acetone Level None detected 06/01/19 08:58 WBC RBC Hgb Hct MCV MCH MCHC RDW Plt Count MPV Neut % (Auto) Lymph % (Auto) Mayes % (Auto) Eos % (Auto) Baso % (Auto) Neut # (Auto) Lymph # (Auto) Mayes # (Auto) Eos # (Auto) Baso # (Auto) Total Counted Neutrophils % (Manual) Lymphocytes % (Manual) Monocytes % (Manual) Platelet Estimate Hypochromasia Specimen Source O2 % ABG pH ABG pCO2 ABG pO2 ABG HCO3 ABG Total CO2 ABG O2 Saturation ABG Base Excess Feliz Test Sodium Potassium Chloride Carbon Dioxide Anion Gap BUN Creatinine Estimated Creat Clear Estimated GFR Est GFR ( Amer) Glucose POC Glucose 337 H* Uric Acid Calcium Magnesium Total Bilirubin AST ALT Alkaline Phosphatase Lactate Dehydrogenase Troponin I B-Natriuretic Peptide Total Protein Albumin Globulin Albumin/Globulin Ratio Acetone Level Preliminary micro results at discharge 06/01/19 11:03 Blood Culture - Preliminary Blood NO GROWTH AFTER 48 HOURS 06/01/19 11:03 Blood Culture - Preliminary Blood NO GROWTH AFTER 48 HOURS DS: Diagnosis - Discharge Diagnosis (1) Severe sepsis Status: Acute (2) Mixed acid base balance disorder Status: Acute (3) Poorly controlled diabetes mellitus Status: Chronic (4) Seizure disorder Status: Chronic (5) Hypokalemia Status: Acute (6) Acute renal failure Status: Acute (7) Emesis, persistent Status: Acute (8) Ileus Status: Acute (9) Cardiomyopathy Status: Acute (10) Non-STEMI (non-ST elevated myocardial infarction) Status: Acute (11) Hypomagnesemia Status: Acute Discharge Plan - Patient Discharge Instructions ACTIVITY: Bed rest DIET: NPO Patient Instructions: Kidney Failure, Seizure Disorder -- Adult, Type 2 Diabetes, Heart-Healthy Diet, DI for Cardiac Catheterization, DI for Hypokalemia, DI for Surgical Site Infection, DI for Sepsis -- Adult, Hypokalemia - Follow up Plan Disposition: Xfer Short-Term Hosp Home Medications: Home Medications Medication Instructions Recorded Confirmed Type alendronate 35 mg tablet 35 mg PO WEEKLY 11/12/17 06/02/19 History aspirin 325 mg tablet 325 mg PO QDAY 11/12/17 06/01/19 History atorvastatin 40 mg tablet 40 mg PO HS 11/12/17 06/01/19 History furosemide 40 mg tablet 40 mg PO DAILY 11/12/17 06/02/19 History levetiracetam 750 mg tablet 750 mg PO Q12H 11/12/17 06/01/19 History meclizine 12.5 mg tablet 12.5 mg PO TID tab 11/12/17 06/01/19 History metformin 500 mg tablet 1,000 mg PO BID 11/12/17 06/01/19 History omeprazole 20 mg capsule,delayed 20 mg PO DAILY 11/12/17 06/02/19 History release tramadol 50 mg tablet 50 mg PO BID tab 11/12/17 06/01/19 History cholecalciferol (vitamin D3) 1,000 1,000 unit PO DAILY 02/11/18 06/01/19 History unit capsule Ondansetron HCl [Ondansetron 8mg 8 mg PO TIDP PRN 05/05/19 06/02/19 History Tablet] Promethazine HCl [Phenergan 25mg 25 mg PO Q6H PRN 05/05/19 06/01/19 History tab] Propranolol HCl 10 mg PO BID 05/05/19 06/01/19 History SUMAtriptan succinate [Sumatriptan 50 mg PO NEEDED PRN 05/05/19 06/02/19 History Succinate] Amitriptyline HCl 100 mg PO HS 06/02/19 06/02/19 History Fluoxetine HCl [Prozac 10mg 10 mg PO DAILY 06/02/19 06/02/19 History Capsule] Prescriptions/Medication Reconciliation: New Amitriptyline HCl [Elavil 50mg tablet] 100 mg PO HS tablet Aspirin [Aspirin 325mg Tab] 325 mg PO DAILY tablet Atorvastatin Calcium [Lipitor 40mg Tablet] 40 mg PO HS tablet Digoxin [Digoxin 0.125mg Tablet] 125 mcg PO DAILY tablet Fluoxetine HCl [Prozac 10mg Capsule] 10 mg PO DAILY capsule Insulin Lispro [HumaLOG 100 units/mL 3mL vial (SSI)] 0 unit SQ ACHS ml levETIRAcetam [Keppra 500mg/5mL vial] 750 mg IV Q12H vial Milrinone Lactate [Primacor 1mg/mL 20mL vial] 20 mg IV .Q25H vial Metoclopramide HCl [Reglan 10mg/2mL vial] 2 mg IVP Q6H vial Pantoprazole Sodium [Protonix 40mg Vial] 40 mg IV BID vial Ondansetron HCl/Pf [Zofran 4mg/2mL vial] 4 mg IV Q8HP PRN vial PRN Reason: Nausea Sacubitril/Valsartan [Entresto 24/26mg Tablet] 1 each PO BID tablet Ceftriaxone Sodium [Rocephin 1gm vial] 1 gm IV DAILY vial Morphine Sulfate [Morphine 4mg/mL syringe] 3 mg IV Q4HP PRN syringe PRN Reason: Moderate To Severe Pain Continued Promethazine HCl [Phenergan 25mg tab] 25 mg PO Q6H PRN PRN Reason: Nausea And Vomiting Propranolol HCl 10 mg PO BID Discontinued omeprazole 20 mg capsule,delayed release 20 mg PO DAILY furosemide 40 mg tablet 40 mg PO DAILY aspirin 325 mg tablet 325 mg PO QDAY atorvastatin 40 mg tablet 40 mg PO HS metformin 500 mg tablet 1,000 mg PO BID levetiracetam 750 mg tablet 750 mg PO Q12H meclizine 12.5 mg tablet 12.5 mg PO TID tab tramadol 50 mg tablet 50 mg PO BID tab alendronate 35 mg tablet 35 mg PO WEEKLY cholecalciferol (vitamin D3) 1,000 unit capsule 1,000 unit PO DAILY Ondansetron HCl [Ondansetron 8mg Tablet] 8 mg PO TIDP PRN PRN Reason: Nausea SUMAtriptan succinate [Sumatriptan Succinate] 50 mg PO NEEDED PRN PRN Reason: Migraine Headache Fluoxetine HCl [Prozac 10mg Capsule] 10 mg PO DAILY Amitriptyline HCl 100 mg PO HS - Problem Reconciliation Problems Reviewed?: Yes
== END 2019-06-03 20:10 | disposition short-term general hospital (02) | DRG 871 ==
LOC: ER 08:46 → 2ND 12:10 → ICU 15:33 → 2ND 06-03 13:56
PROVIDERS: ADMIT Internal Medicine Adolescent Medicine; ATTEND Internal Medicine Adolescent Medicine
CPT/HCPCS: 70450; 71010; 71045; 74000; 74018; 74176; 80048; 80053; 80076; 80177; 81001; 82009; 82803; 82962; 83036; 83605; 83615; 83735; 83880; 84484; 84550; 85007; 85025; 87040; 93005; 93306; 93458; 94640; 94761; 96365; 96366; 96367; 96375; 99152; 99284; C1725; C1769; J1644; J1953; J2260; J2405; J3370; Q9967

== ENCOUNTER 2019-08-03 08:19 | Outpatient (CLI) | payer MEDICARE, MEDICAID, SELFPAY | END 2019-08-03 08:45 | disposition home or self-care (01) | LOC: INF 08:19 | PROVIDERS: Visit Provider Internal Medicine Medical Oncology | DX: Z45.2 Encounter for adjustment and management of vascular access device (principal) | CPT/HCPCS: 96523; J1642 ==

== ENCOUNTER 2019-08-23 08:23 | Outpatient (CLI) | payer MEDICARE, MEDICAID, SELFPAY ==
[2019-08-23 08:15] VITALS: BMI 32.5
[2019-08-23 08:32] LABS: Basophils # 0.1 K/mm3 (0-0.2); Basophils % 0.5 % (0.1-2.0); Eosinophils # 0.4 K/mm3 (0.0-0.4); Eosinophils % 3.3 % (0.1-12.0); Hematocrit 38.3 % (37.0-47.0); Hemoglobin 12.1 g/dL (12.2-16.2); Lymphocytes # 1.7 K/mm3 (0.7-4.5); Lymphocytes % 15.4 % (10-50); Mean Corpuscular HGB Conc 31.7 g/dL (31.8-35.4); Mean Corpuscular Volume 94.6 fl (81-99); Mean Platelet Volume 7.5 fl (7.4-10.4); Monocytes # 0.4 K/mm3 (0.1-1.0); Monocytes % 3.1 % (1.7-9.3); Neutrophils # 8.6 K/mm3 (1.8-7.8); Neutrophils % 77.7 % (37.0-80.0); Platelet Count 327 K/mm3 (142-424); Red Blood Count 4.05 M/mm3 (4.20-5.40); Red Cell Distribution Width 15.4 % (11.5-17.5); White Blood Count 11.1 K/mm3 (4.8-10.8)
--- NOTE | 2019-08-23 08:34 | CT_ITS ---
PROCEDURE: CT CHEST W CON CLINCAL INDICATION: LYMPHOMA Follow-up lymphoma, radiation for lung mass COMPARISON: CHESTW CT chest w con from 12/22/2017 CT ABDOMEN PELVIS W CON from 08/23/2019 TECHNIQUE: IV Contrast: 75ml Optiray 350 Axial images obtained with sagittal and coronal reformats. All CT scans at the facility use one or more dose reduction, viz: automated exposure control, ma/kV adjustment per patient size (including targeted exams where dose is matched to indication, i.e. head), or iterative reconstruction technique. FINDINGS: There is enlarged lymph node in the middle mediastinum anterior to the left mainstem bronchus measuring 3.2 x 2.1 by 2 cm. There is a MediPort catheter present from left subclavian approach. There is mild thickening of the part cardia and posteriorly and superiorly on the left There are centrilobular emphysematous changes. Stable 5 mm nodules present in the right upper lobe centrally. There is a new 2.4 cm nodule in the left lower lobe posteriorly with some atelectatic changes noted in the left lower lobe anteriorly. Previously there was a 13 mm nodule in the left lower lobe anteriorly. This area is obscured by the lying consolidated lung. There is also some consolidation/atelectasis within the lingula posteriorly which has developed since the previous exam. No acute bony anomalies are evident. IMPRESSION: The 1. New 2.4 cm left lower lobe nodule now with adenopathy in the mediastinum. These findings are suspicious for metastatic disease. 2. Previously noted nodule within the lingula may be obscured by overlying consolidation/volume loss. There is atelectasis/consolidation in the left lower lobe anteriorly and within the lingula. Dictated by: Feliz Parmar MD 08/23/2019 15:30 Electronically signed by Feliz Parmar MD in [place] 08/24/2019 12:10
--- NOTE | 2019-08-23 08:34 | CT_ITS ---
PROCEDURE: CT ABDOMEN PELVIS W CON CLINICAL INDICATION: LYMPHOMA Follow-up lymphoma COMPARISON: ABDPELW CT abdomen pelvis w con from 11/26/2017 CT ABDOMEN PELVIS WO CON from 06/02/2019 TECHNIQUE: IV Contrast: 75ML OPTIRAY 350 Oral Contrast 450ml Redicat Axial images obtained with sagittal and coronal reformats. All CT scans at the facility use one or more dose reduction, viz: automated exposure control, ma/kV adjustment per patient size (including targeted exams where dose is matched to indication, i.e. head), or iterative reconstruction technique. FINDINGS: LOWER THORAX: Please see chest CT report for lower thorax findings ABDOMEN & PELVIS: There is diffuse intra and extrahepatic biliary ductal dilatation. This has increased slightly since 11/26/2017. The pancreatic duct is not appear dilated. There is a 9 mm hypodense lesion in the right hepatic lobe inferiorly. This is not identified on the previous studies of 11/26/2017 and 06/02/2019. In addition, there is a 11 mm hypodense lesion in the hepatic dome superiorly in the lateral segment of left hepatic lobe also not identified on previous exams. The spleen, adrenal glands, pancreas, and kidneys have an unremarkable appearance. No evidence of appendicitis or diverticulitis. There is a mild amount of retained colonic feces. There are post hysterectomy changes. No abdominal or pelvic mass. There has been prior ventral hernia repair with ventral mesh present. There are few small mesenteric nodes which are nonspecific. No acute bony findings. IMPRESSION: 1. There has been interval development of 2 hypodense lesions of the liver 1 in the left hepatic lobe lateral segment and 1 in the right hepatic lobe inferiorly. These are worrisome for metastatic foci. Follow-up suggested. 2. No abdominal or pelvic adenopathy. 3. There has been some increase in the diffuse intra and extrahepatic biliary ductal dilatation. Dictated by: Feliz Parmar MD 08/23/2019 15:31 Electronically signed by Feliz Parmar MD in [place] 08/24/2019 11:46
[2019-08-23 08:43] LABS: Alanine Aminotransferase 20 U/L (12-78); Albumin Level 3.1 gm/dL (3.4-5.0); Albumin/Globulin Ratio 0.7 (1.1-1.8); Alkaline Phosphatase 94 U/L (46-116); Anion Gap 18.4 mEq/L (5-15); Aspartate Amino Transferase 12 U/L (15-37); Bilirubin,Total 0.1 mg/dL (0.2-1.0); Blood Urea Nitrogen 16 mg/dL (7-18); Calcium 9.2 mg/dL (8.5-10.1); Carbon Dioxide 23 mmol/L (21.0-32.0); Chloride 101 mmol/L (98-107); Creatinine Clearance Estimated 73 mL/min (50-200); Creatinine,Serum 1.17 mg/dL (0.55-1.02); Estimated Glomerular Filt Rate 48 ml/min (>60); GFR (African American) 58 ML/MIN (>60); Globulin 4.3 gm/dl (1.3-3.2); Glucose 101 mg/dL (74-106); Potassium 4.4 mmoL/L (3.5-5.1); Sodium 138 mmol/L (136-145); Total Protein,Serum 7.4 gm/dL (6.4-8.2)
== END 2019-08-23 09:48 | disposition home or self-care (01) ==
LOC: INF 08:24
PROVIDERS: PCP Internal Medicine Cardiovascular Disease; Visit Provider Internal Medicine Medical Oncology
DX: C85.93 Non-Hodgkin lymphoma, unspecified, intra-abdominal lymph nodes (principal); C85.18 Unspecified B-cell lymphoma, lymph nodes of multiple sites
CPT/HCPCS: 71260; 74177; 80053; 85025; J1642; Q9967

== ENCOUNTER → 2019-09-02 08:39 | Outpatient (CLI) | payer MEDICARE, MEDICAID, SELFPAY ==
--- NOTE | 2019-09-02 08:41 | CA_ITS ---
APPROVED REPORT EXAM: Limited 2D Echocardiogram Prototype Carpenter: Flaquita Hare CRT Ht: 5 ft 4 in Wt: 190lbs BSA: 1.91 BP: 91/58 mmHg Indications: CVA, CM, CHEMO, AFIB,HTN, HLD, EF 20-30 06/03/19 M-Mode Dimensions RVDd 2.22 cm (0.9-2.6) LVDd 5.08 cm (3.5-5.7) LVDs 3.83 cm (3.5-5.7) IVSd 1.01 cm (0.6-1.1) PWd 0.57 cm (0.6-1.1) EF (Teich) 48.60% FS 24.60% EDV (Teich) 122.70 mL ESV (Teich) 63.10 mL Left Ventricle Left atrium is mildly enlarged, left ventricle is normal size, visually estimated ejection fraction 55% with no regional wall motion abnormality. Right Ventricle Right atrium and right ventricular normal size and contractility. Aortic Valve Aortic valve is thickened and calcified leaflet chordae display good mobility morphologically there is no aortic stenosis. Mitral Valve Mitral valve has mitral annular calcification. Tricuspid Valve Tricuspid valve is grossly normal. Pulmonic Valve Pulmonic valve is not well visualized. Great Vessels Aortic root is normal size. Pericardium No significant pericardial effusion noted. Conclusion 1. Limited 2D echocardiogram performed to assess left ventricular systolic function, there is no color flow mapping or spectral Doppler performed. 2. Mildly enlarged left atrium, normal left ventricular size, visually estimated ejection fraction 45% with no regional wall motion abnormality. 3. No significant pericardial effusion noted. Electronically signed by : Kenyon Umanzor, 09/02/2019 15:24:57
== END ==
PROVIDERS: PCP Internal Medicine Cardiovascular Disease; Visit Provider Nurse Practitioner Family
DX: I42.8 Other cardiomyopathies (principal); I48.0 Paroxysmal atrial fibrillation; I51.3 Intracardiac thrombosis, not elsewhere classified
CPT/HCPCS: 93306; 93308

== ENCOUNTER 2019-09-22 11:00 | Outpatient (CLI) | payer MEDICARE, MEDICAID, SELFPAY | END 2019-09-22 11:15 | disposition home or self-care (01) | LOC: INF 11:22 | PROVIDERS: Visit Provider Internal Medicine Medical Oncology | DX: Z45.2 Encounter for adjustment and management of vascular access device (principal) | CPT/HCPCS: 96523; J1642 ==

== ENCOUNTER → 2019-10-12 10:35 | Outpatient (CLI) | payer MEDICARE, MEDICAID, SELFPAY ==
[2019-10-12 11:17] LABS: INR 1.02 (0.9-1.1); Prothrombin Time 10.6 seconds (9.4-11.8)
[2019-10-12 11:39] LABS: Basophils # 0.1 K/mm3 (0-0.2); Basophils % 0.5 % (0.1-2.0); Eosinophils # 0.4 K/mm3 (0.0-0.4); Hematocrit 37.5 % (37.0-47.0); Hemoglobin 11.3 g/dL (12.2-16.2); Lymphocytes # 1.2 K/mm3 (0.7-4.5); Lymphocytes % 9.9 % (10-50); Mean Corpuscular HGB Conc 30.2 g/dL (31.8-35.4); Mean Corpuscular Hemoglobin 27.9 pg (27.0-31.2); Mean Corpuscular Volume 92.4 fl (81-99); Mean Platelet Volume 7.3 fl (7.4-10.4); Monocytes # 0.6 K/mm3 (0.1-1.0); Monocytes % 4.9 % (1.7-9.3); Neutrophils # 10.2 K/mm3 (1.8-7.8); Neutrophils % 81.7 % (37.0-80.0); Platelet Count 326 K/mm3 (142-424); Red Blood Count 4.06 M/mm3 (4.20-5.40); Red Cell Distribution Width 15.1 % (11.5-17.5); White Blood Count 12.4 K/mm3 (4.8-10.8)
== END ==
DX: K76.9 Liver disease, unspecified (principal); Z01.818 Encounter for other preprocedural examination; Z79.01 Long term (current) use of anticoagulants
CPT/HCPCS: 36415; 85025; 85610

== ENCOUNTER 2019-11-04 11:20 | Outpatient (CLI) | payer MEDICARE, MEDICAID, SELFPAY ==
[2019-11-04 11:26] VITALS: BMI 34.7
[2019-11-04 11:58] LABS: Basophils % 0.3 % (0.1-2.0); Eosinophils # 0.2 K/mm3 (0.0-0.4); Eosinophils % 2.6 % (0.1-12.0); Hematocrit 31.8 % (37.0-47.0); Hemoglobin 10.1 g/dL (12.2-16.2); Lymphocytes # 1.2 K/mm3 (0.7-4.5); Lymphocytes % 14.2 % (10-50); Mean Corpuscular HGB Conc 31.9 g/dL (31.8-35.4); Mean Corpuscular Hemoglobin 28.4 pg (27.0-31.2); Mean Corpuscular Volume 89.1 fl (81-99); Mean Platelet Volume 7.9 fl (7.4-10.4); Monocytes # 0.4 K/mm3 (0.1-1.0); Monocytes % 4.9 % (1.7-9.3); Neutrophils # 6.6 K/mm3 (1.8-7.8); Platelet Count 356 K/mm3 (142-424); Red Blood Count 3.57 M/mm3 (4.20-5.40); Red Cell Distribution Width 14.1 % (11.5-17.5); White Blood Count 8.5 K/mm3 (4.8-10.8)
[2019-11-04 12:04] LABS: Alanine Aminotransferase 7 U/L (12-78); Albumin Level 2.6 gm/dL (3.4-5.0); Albumin/Globulin Ratio 0.6 (1.1-1.8); Alkaline Phosphatase 87 U/L (46-116); Anion Gap 15.3 mEq/L (5-15); Aspartate Amino Transferase 14 U/L (15-37); Bilirubin,Total 0.2 mg/dL (0.2-1.0); Blood Urea Nitrogen 13 mg/dL (7-18); Calcium 7.8 mg/dL (8.5-10.1); Carbon Dioxide 24 mmol/L (21.0-32.0); Chloride 105 mmol/L (98-107); Creatinine Clearance Estimated 90 mL/min (50-200); Creatinine,Serum 1.01 mg/dL (0.55-1.02); Estimated Glomerular Filt Rate 57 ml/min (>60); GFR (African American) 69 ML/MIN (>60); Globulin 4.6 gm/dl (1.3-3.2); Glucose 98 mg/dL (74-106); Potassium 4.3 mmoL/L (3.5-5.1); Sodium 140 mmol/L (136-145); Thyroid Stimulating Hormone 3.09 uIU/ml (0.358-3.740); Total Protein,Serum 7.2 gm/dL (6.4-8.2)
[2019-11-06 09:27] LABS: Adrenocorticotropic Hormone 8.7 pg/mL (7.2-63.3)
== END 2019-11-04 11:52 | disposition home or self-care (01) ==
LOC: INF 11:20
PROVIDERS: PCP Internal Medicine Cardiovascular Disease; Visit Provider Internal Medicine Medical Oncology
DX: C34.92 Malignant neoplasm of unspecified part of left bronchus or lung (principal); C78.7 Secondary malignant neoplasm of liver and intrahepatic bile duct; Z79.899 Other long term (current) drug therapy
CPT/HCPCS: 80053; 82024; 82533; 84443; 85025

== ENCOUNTER → 2019-11-09 13:17 | Outpatient (CLI) | payer MEDICARE, MEDICAID, SELFPAY ==
--- NOTE | 2019-11-09 13:23 | MR_ITS ---
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 FINDINGS: There is a large area of encephalomalacia in the right frontal parietal, parietal, and anterior temporal lobe consistent with an old right middle cerebral artery infarction. There is no evidence of restricted diffusion that would indicate an acute infarction. The cerebellopontine angles, cerebellum, and brainstem are unremarkable. There is atrophy of the carmela on the right likely secondary to the old MCA infarction. No enhancing lesions are evident. No convincing evidence of metastatic disease to the brain the pituitary, optic chiasm, and craniocervical junction have an unremarkable appearance. There is thinning of the corpus callosum which is nonspecific. No mastoid effusion or sinus air-fluid level. IMPRESSION: 1. No convincing evidence of intracranial metastasis. 2. Old right middle cerebral artery infarction with encephalomalacia change Dictated by: Feliz Parmar MD 11/10/2019 09:03 Electronically signed by Feliz Parmar MD in [place] 11/10/2019 09:03
== END ==
PROVIDERS: PCP Internal Medicine Cardiovascular Disease; Visit Provider Internal Medicine Medical Oncology
DX: C34.92 Malignant neoplasm of unspecified part of left bronchus or lung (principal); C78.7 Secondary malignant neoplasm of liver and intrahepatic bile duct; Z03.89 Encounter for observation for other suspected diseases and conditions ruled out
CPT/HCPCS: 70553; A9576

== ENCOUNTER 2019-11-10 08:35 | Outpatient (CLI) | payer MEDICARE, MEDICAID, SELFPAY ==
[2019-11-10] VITALS (16 sets, daily range): BP systolic 79–111; BP diastolic 47–62; PULSE 76–88; RESP 18–20; TEMP 36.3; O2SAT 96
== END 2019-11-10 13:35 | disposition home or self-care (01) ==
LOC: INF 08:51
PROVIDERS: Visit Provider Internal Medicine Medical Oncology
DX: Z51.11 Encounter for antineoplastic chemotherapy (principal); C34.92 Malignant neoplasm of unspecified part of left bronchus or lung; C78.7 Secondary malignant neoplasm of liver and intrahepatic bile duct
CPT/HCPCS: 96413; 96415; 96417; J1642; J9022; J9045; J9181; Q0166

== ENCOUNTER 2019-11-11 09:20 | Outpatient (CLI) | payer MEDICARE, MEDICAID, SELFPAY ==
[2019-11-11 10:36] VITALS: BP 111/80; PULSE 75; RESP 18; TEMP 36.4; O2SAT 98
[2019-11-11 11:06] VITALS: BP 95/65; PULSE 76; RESP 18; O2SAT 97
[2019-11-11 11:36] VITALS: BP 108/70; PULSE 77; RESP 18; O2SAT 98
[2019-11-11 12:15] VITALS: BP 109/62; PULSE 75; RESP 18; O2SAT 99
== END 2019-11-11 12:15 | disposition home or self-care (01) ==
LOC: INF 09:20
PROVIDERS: Visit Provider Internal Medicine Medical Oncology
DX: Z51.11 Encounter for antineoplastic chemotherapy (principal); C34.92 Malignant neoplasm of unspecified part of left bronchus or lung; C78.7 Secondary malignant neoplasm of liver and intrahepatic bile duct
CPT/HCPCS: 96413; 96415; J1642; J9181; Q0166

== ENCOUNTER 2019-11-12 09:04 | Outpatient (CLI) | payer MEDICARE, MEDICAID, SELFPAY ==
[2019-11-12] VITALS (7 sets, daily range): BP systolic 115–149; BP diastolic 61–97; PULSE 75–94; RESP 18–20; TEMP 36.4; O2SAT 95
== END 2019-11-12 11:35 | disposition home or self-care (01) ==
LOC: INF 09:04
PROVIDERS: Visit Provider Internal Medicine Medical Oncology
DX: Z51.11 Encounter for antineoplastic chemotherapy (principal); C34.92 Malignant neoplasm of unspecified part of left bronchus or lung; C78.7 Secondary malignant neoplasm of liver and intrahepatic bile duct
CPT/HCPCS: 96413; 96415; J1642; J9181; Q0166

== ENCOUNTER 2019-11-25 08:40 | Outpatient (CLI) | payer MEDICARE, MEDICAID, SELFPAY ==
[2019-11-25 08:48] VITALS: BMI 34.7
[2019-11-25 09:15] LABS: Eosinophils # 0.1 K/mm3 (0.0-0.4); Eosinophils % 4.1 % (0.1-12.0); Hematocrit 28.1 % (37.0-47.0); Hemoglobin 9.4 g/dL (12.2-16.2); Lymphocytes # 0.9 K/mm3 (0.7-4.5); Lymphocytes % 41.3 % (10-50); Mean Corpuscular HGB Conc 33.3 g/dL (31.8-35.4); Mean Corpuscular Hemoglobin 28.8 pg (27.0-31.2); Mean Corpuscular Volume 86.6 fl (81-99); Mean Platelet Volume 8.7 fl (7.4-10.4); Monocytes # 0.3 K/mm3 (0.1-1.0); Monocytes % 12.1 % (1.7-9.3); Neutrophils # 0.9 K/mm3 (1.8-7.8); Neutrophils % 41.6 % (37.0-80.0); Platelet Count 180 K/mm3 (142-424); Red Blood Count 3.25 M/mm3 (4.20-5.40); Red Cell Distribution Width 16.8 % (11.5-17.5); White Blood Count 2.2 K/mm3 (4.8-10.8)
[2019-11-25 09:22] LABS: Alanine Aminotransferase 20 U/L (9-52); Albumin Level 2.8 g/dL (3.4-5.0); Albumin/Globulin Ratio 0.7 (1.1-1.8); Alkaline Phosphatase 107 U/L (46-116); Anion Gap 18.2 mEq/L (5-15); Aspartate Amino Transferase 16 U/L (15-37); Bilirubin,Total 0.2 mg/dL (0.2-1.0); Blood Urea Nitrogen 8 mg/dL (7-18); Calcium 8.1 mg/dL (8.5-10.1); Carbon Dioxide 24 mmol/L (21.0-32.0); Chloride 104 mmol/L (98-107); Creatinine Clearance Estimated 89 mL/min (50-200); Creatinine,Serum 1.02 mg/dL (0.55-1.02); Estimated Glomerular Filt Rate 56 ml/min (>60); GFR (African American) 68 ML/MIN (>60); Globulin 4.1 gm/dl (1.3-3.2); Glucose 115 mg/dL (74-106); Potassium 3.2 mmoL/L (3.5-5.1); Sodium 143 mmol/L (137-145); Total Protein,Serum 6.9 g/dL (6.4-8.2)
--- NOTE | 2019-11-25 10:34 | CT_ITS ---
PROCEDURE: CT ABDOMEN PELVIS W CON CLINICAL INDICATION: DIARRHEA, RUQ PAIN Right-sided abdominal pain, back pain, diarrhea, lymphoma COMPARISON: CT ABDOMEN PELVIS W CON from 08/23/2019 TECHNIQUE: IV Contrast: 75ML OPTIRAY 350 Oral Contrast none Axial images obtained with sagittal and coronal reformats. All CT scans at the facility use one or more dose reduction, viz: automated exposure control, ma/kV adjustment per patient size (including targeted exams where dose is matched to indication, i.e. head), or iterative reconstruction technique. FINDINGS: LOWER THORAX: Persistent consolidation is present in the posterior inferior aspect of the left upper lobe and the inferior aspect of the left lower lobe with some thickening in the major fissure inferiorly. ABDOMEN & PELVIS: There are multiple hypodense lesions of the liver at least 4 in the left hepatic lobe and 2 or 3 in the right hepatic lobe. These are suspicious for metastatic foci and have increased in number compared to the previous exam. The the spleen, adrenal glands, and pancreas are unremarkable. Kidneys have an unremarkable appearance. No intestinal obstruction or free air. There are scattered nondistended fluid-filled small bowel loops with a few air-fluid levels which could be due to enteritis or ileus there are post cholecystectomy changes with biliary dilatation. Post surgical changes are present involving the anterior abdominal wall. No evidence of appendicitis or diverticulitis. There are post hysterectomy changes. No acute bony findings. IMPRESSION: Multiple hypodense lesions of the liver. Most of these are not significantly changed. There does appear to be a couple new lesions suspicious for metastatic disease. Nondistended fluid-filled small bowel loops are present and could be related to enteritis/ileus. Dictated by: Feliz Parmar MD 11/25/2019 14:26 Electronically signed by Feliz Parmar MD in [facility] 11/25/2019 14:26
[2019-11-25 11:40] VITALS: BP 98/56; PULSE 76; RESP 18; O2SAT 98
[2019-11-25 12:10] VITALS: BP 112/64; PULSE 86; RESP 18; TEMP 36.7
[2019-11-25 12:40] VITALS: BP 111/50; PULSE 81; RESP 18
[2019-11-25 13:10] VITALS: BP 124/49; PULSE 84; RESP 18
[2019-11-25 13:40] VITALS: BP 101/49; PULSE 87; RESP 18
== END 2019-11-25 14:00 | disposition home or self-care (01) ==
LOC: INF 08:46
PROVIDERS: Visit Provider Internal Medicine Medical Oncology
DX: Z45.2 Encounter for adjustment and management of vascular access device (principal); C34.92 Malignant neoplasm of unspecified part of left bronchus or lung; C78.7 Secondary malignant neoplasm of liver and intrahepatic bile duct; R10.11 Right upper quadrant pain; R19.7 Diarrhea, unspecified
CPT/HCPCS: 74177; 80053; 85025; 96365; 96366; J1642; Q9967

== ENCOUNTER 2019-12-06 08:12 | Outpatient (CLI) | payer MEDICARE, MEDICAID, SELFPAY ==
[2019-12-06] VITALS (11 sets, daily range): BP systolic 84–113; BP diastolic 44–67; PULSE 73–86; RESP 16–18; TEMP 36.1; BMI 34.7
[2019-12-06 08:32] LABS: Basophils % 0.3 % (0.1-2.0); Eosinophils % 0.3 % (0.1-12.0); Hematocrit 28.3 % (37.0-47.0); Hemoglobin 8.8 g/dL (12.2-16.2); Lymphocytes # 1.4 K/mm3 (0.7-4.5); Lymphocytes % 13.3 % (10-50); Mean Corpuscular HGB Conc 30.9 g/dL (31.8-35.4); Mean Corpuscular Hemoglobin 28.3 pg (27.0-31.2); Mean Corpuscular Volume 91.7 fl (81-99); Monocytes % 9.1 % (1.7-9.3); Neutrophils # 8.2 K/mm3 (1.8-7.8); Platelet Count 323 K/mm3 (142-424); Red Blood Count 3.09 M/mm3 (4.20-5.40); Red Cell Distribution Width 19.6 % (11.5-17.5); White Blood Count 10.7 K/mm3 (4.8-10.8)
[2019-12-06 08:35] LABS: Chloride 94 mmol/L (98-107); Potassium 3.5 mmoL/L (3.5-5.1); Sodium 134 mmol/L (136-145)
[2019-12-06 08:38] LABS: Alanine Aminotransferase 20 U/L (12-78); Albumin Level 3.1 g/dl (3.5-5.0); Albumin/Globulin Ratio 1.1 (1.1-1.8); Alkaline Phosphatase 94 U/L (38-126); Anion Gap 11.5 mEq/L (5-15); Aspartate Amino Transferase 19 U/L (14-36); Bilirubin,Total 0.2 mg/dl (0.2-1.3); Blood Urea Nitrogen 9 mg/dl (7-17); Calcium 7.5 mg/dl (8.4-10.2); Carbon Dioxide 32 mmol/L (22.0-30.0); Creatinine Clearance Estimated 130 mL/min (50-200); Estimated Glomerular Filt Rate 87 ml/min (>60); GFR (African American) 105 ML/MIN (>60); Globulin 2.8 g/dL (1.3-3.2); Glucose 141 mg/dl (74-100); Total Protein,Serum 5.9 g/dl (6.3-8.2)
== END 2019-12-06 12:57 | disposition home or self-care (01) ==
LOC: INF 08:12
PROVIDERS: Visit Provider Internal Medicine Medical Oncology
DX: Z51.11 Encounter for antineoplastic chemotherapy (principal); C34.92 Malignant neoplasm of unspecified part of left bronchus or lung; C78.7 Secondary malignant neoplasm of liver and intrahepatic bile duct
CPT/HCPCS: 80053; 85025; 96413; 96415; 96417; J1642; J8501; J9045; J9181; Q0166

== ENCOUNTER 2019-12-07 08:17 | Outpatient (CLI) | payer MEDICARE, MEDICAID, SELFPAY ==
[2019-12-07 09:01] VITALS: BP 101/63; PULSE 79; RESP 18; TEMP 36.4; O2SAT 95
[2019-12-07 09:31] VITALS: BP 104/49; PULSE 75; RESP 20; O2SAT 96
[2019-12-07 10:01] VITALS: BP 102/52; PULSE 78; RESP 20; O2SAT 96
[2019-12-07 10:31] VITALS: BP 104/55; PULSE 68; RESP 20; O2SAT 96
[2019-12-07 10:52] VITALS: BP 106/59; PULSE 69; RESP 20; O2SAT 95
== END 2019-12-07 10:53 | disposition home or self-care (01) ==
LOC: INF 08:18
PROVIDERS: Visit Provider Internal Medicine Medical Oncology
DX: Z51.11 Encounter for antineoplastic chemotherapy (principal); C34.92 Malignant neoplasm of unspecified part of left bronchus or lung; C78.7 Secondary malignant neoplasm of liver and intrahepatic bile duct
CPT/HCPCS: 96413; 96415; J1642; J9181; Q0166

== ENCOUNTER 2019-12-08 08:16 | Outpatient (CLI) | payer MEDICARE, MEDICAID, SELFPAY ==
[2019-12-08 09:00] VITALS: BP 107/41; PULSE 91; RESP 18; TEMP 36.6; O2SAT 99
[2019-12-08 09:30] VITALS: BP 99/66; PULSE 82; RESP 20; O2SAT 99
[2019-12-08 10:00] VITALS: BP 91/61; PULSE 73; RESP 20; O2SAT 99
[2019-12-08 10:30] VITALS: BP 97/64; PULSE 78; RESP 20; O2SAT 98
[2019-12-08 10:52] VITALS: BP 104/52; PULSE 69; RESP 20; O2SAT 98
== END 2019-12-08 10:53 | disposition home or self-care (01) ==
LOC: INF 08:16
PROVIDERS: Visit Provider Internal Medicine Medical Oncology
DX: Z51.11 Encounter for antineoplastic chemotherapy (principal); C34.92 Malignant neoplasm of unspecified part of left bronchus or lung; C78.7 Secondary malignant neoplasm of liver and intrahepatic bile duct
CPT/HCPCS: 96413; 96415; J1642; J9181; Q0166

== ENCOUNTER 2019-12-27 08:10 | Outpatient (CLI) | payer MEDICARE, MEDICAID, SELFPAY ==
[2019-12-27] VITALS (7 sets, daily range): BP systolic 110–129; BP diastolic 53–71; PULSE 73–80; RESP 18–20; TEMP 36.8; O2SAT 94–96; BMI 35.3
[2019-12-27 08:42] LABS: Basophils % 0.4 % (0.1-2.0); Eosinophils # 0.1 K/mm3 (0.0-0.4); Hematocrit 26.3 % (37.0-47.0); Hemoglobin 8.2 g/dL (12.2-16.2); Lymphocytes # 1.1 K/mm3 (0.7-4.5); Lymphocytes % 22.9 % (10-50); Mean Corpuscular HGB Conc 31.1 g/dL (31.8-35.4); Mean Corpuscular Hemoglobin 28.4 pg (27.0-31.2); Mean Corpuscular Volume 91.3 fl (81-99); Mean Platelet Volume 8.6 fl (7.4-10.4); Monocytes # 0.5 K/mm3 (0.1-1.0); Monocytes % 10.4 % (1.7-9.3); Neutrophils # 3.1 K/mm3 (1.8-7.8); Neutrophils % 65.3 % (37.0-80.0); Platelet Count 421 K/mm3 (142-424); Red Blood Count 2.88 M/mm3 (4.20-5.40); Red Cell Distribution Width 20.2 % (11.5-17.5); White Blood Count 4.8 K/mm3 (4.8-10.8)
[2019-12-27 08:44] LABS: Chloride 102 mmol/L (98-107); Potassium 3.8 mmoL/L (3.5-5.1); Sodium 137 mmol/L (136-145)
[2019-12-27 08:47] LABS: Alanine Aminotransferase 26 U/L (12-78); Albumin Level 3.8 g/dl (3.5-5.0); Albumin/Globulin Ratio 1.2 (1.1-1.8); Alkaline Phosphatase 90 U/L (38-126); Anion Gap 15.8 mEq/L (5-15); Aspartate Amino Transferase 33 U/L (14-36); Blood Urea Nitrogen 5 mg/dl (7-17); Calcium 8.5 mg/dl (8.4-10.2); Carbon Dioxide 23 mmol/L (22.0-30.0); Creatinine Clearance Estimated 116 mL/min (50-200); Estimated Glomerular Filt Rate 74 ml/min (>60); GFR (African American) 90 ML/MIN (>60); Globulin 3.1 g/dL (1.3-3.2); Glucose 186 mg/dl (74-100); Total Protein,Serum 6.9 g/dl (6.3-8.2)
[2019-12-27 08:50] LABS: Bilirubin,Total < 0.1 mg/dl (0.2-1.3)
== END 2019-12-27 13:00 | disposition home or self-care (01) ==
LOC: INF 08:10
PROVIDERS: Visit Provider Internal Medicine Medical Oncology
DX: Z51.11 Encounter for antineoplastic chemotherapy (principal); C34.92 Malignant neoplasm of unspecified part of left bronchus or lung; C78.7 Secondary malignant neoplasm of liver and intrahepatic bile duct
CPT/HCPCS: 80053; 85025; 96413; 96415; 96417; J1642; J8501; J9022; J9045; J9181; Q0166

== ENCOUNTER 2019-12-28 08:13 | Outpatient (CLI) | payer MEDICARE, MEDICAID, SELFPAY ==
[2019-12-28 09:00] VITALS: BP 121/70; PULSE 80; RESP 18; TEMP 36.2; O2SAT 97
[2019-12-28 09:30] VITALS: BP 120/79; PULSE 77; RESP 18; O2SAT 97
[2019-12-28 10:00] VITALS: BP 119/76; PULSE 81; RESP 18; O2SAT 96
[2019-12-28 10:30] VITALS: BP 112/65; PULSE 70; RESP 18; O2SAT 97
[2019-12-28 10:50] VITALS: BP 115/67; PULSE 78; RESP 18; O2SAT 97
== END 2019-12-28 10:50 | disposition home or self-care (01) ==
LOC: INF 08:13
PROVIDERS: Visit Provider Internal Medicine Medical Oncology
DX: Z51.11 Encounter for antineoplastic chemotherapy (principal); C34.92 Malignant neoplasm of unspecified part of left bronchus or lung; C78.7 Secondary malignant neoplasm of liver and intrahepatic bile duct
CPT/HCPCS: 96413; 96415; J1642; J9181; Q0166

== ENCOUNTER 2019-12-29 08:31 | Outpatient (CLI) | payer MEDICARE, MEDICAID, SELFPAY ==
[2019-12-29 09:10] VITALS: BP 129/75; PULSE 87; RESP 18; TEMP 36.4; O2SAT 97
[2019-12-29 09:25] VITALS: BP 111/63; PULSE 63; RESP 18
[2019-12-29 09:40] VITALS: BP 116/67; PULSE 72; RESP 18; TEMP 36.2
[2019-12-29 09:55] VITALS: BP 115/61; PULSE 72; RESP 18
[2019-12-29 10:10] VITALS: BP 115/61; PULSE 72; RESP 18
[2019-12-29 11:00] VITALS: BP 113/68; PULSE 67; RESP 18
== END 2019-12-29 11:00 | disposition home or self-care (01) ==
LOC: INF 08:31
PROVIDERS: Visit Provider Internal Medicine Medical Oncology
DX: Z51.11 Encounter for antineoplastic chemotherapy (principal); C34.92 Malignant neoplasm of unspecified part of left bronchus or lung; C78.7 Secondary malignant neoplasm of liver and intrahepatic bile duct
CPT/HCPCS: 96413; 96415; J1642; J9181; Q0166

== ENCOUNTER → 2020-01-10 08:51 | Outpatient (CLI) | payer MEDICARE, MEDICAID, SELFPAY ==
--- NOTE | 2020-01-10 09:08 | CT_ITS ---
PROCEDURE: CT ABDOMEN PELVIS W CON CLINICAL INDICATION: LUNG CANCER Liver cancer COMPARISON: CT ABDOMEN PELVIS W CON from 11/25/2019 TECHNIQUE: IV Contrast: 75ML OPTIRAY 350 Oral Contrast 20ml Gastroview Axial images obtained with sagittal and coronal reformats. All CT scans at the facility use one or more dose reduction, viz: automated exposure control, ma/kV adjustment per patient size (including targeted exams where dose is matched to indication, i.e. head), or iterative reconstruction technique. FINDINGS: LOWER THORAX: There is no significant change. Continued consolidation in areas of the inferior lingula and left lower lobe a noted consistent with atelectasis or pneumonia. ABDOMEN & PELVIS: There is mild fatty infiltration of the liver. Some interval improvement with decrease in size of several liver lesions appears to have occurred. Lesion in the left liver dome which did measure approximately 11 millimeters now measures 8 millimeters. Largest lesion in the lateral segment of the left hepatic lobe seen on image 34 series 5 measures 10.9 x 13.7 millimeters. This was approximately 15 0.0 x 16.6 millimeters. Hypodense lesion in the posterior right liver 10.6 millimeters appears smaller than on the previous exam. There appears to have been possible increase in size of a lesion along the inferior aspect of the gallbladder fossa which now measures 16 x 20 millimeters image 28 series 605. Other lesions are not definitely changed. Postsurgical change from cholecystectomy is noted. The spleen, pancreas, adrenal glands, and kidneys show no acute finding. No intestinal obstruction or free air. No evidence of appendicitis or diverticulitis. No pelvic mass, abnormal fluid collection, or focal inflammatory change of the pelvis. No acute bony anomalies. Ventral hernia repair with surgical mesh is noted. Extensive atherosclerotic calcifications are seen in the abdominal aorta iliac mesenteric and renal vessels. A high-grade stenosis of the left common iliac artery is not excluded. IMPRESSION: Mixed appearance of liver lesions with several appearing smaller than on the previous exam including the largest one but with at least one lesion along the inferior aspect of the gallbladder fossa appearing more prominent Dictated by: Eleazar Grimes 01/10/2020 10:53 Electronically signed by Eleazar Grimes in [place] 01/10/2020 10:53
--- NOTE | 2020-01-10 09:08 | CT_ITS ---
PROCEDURE: CT CHEST W CON CLINCAL INDICATION: LUNG CANCER COMPARISON: CT CHEST W CON from 08/23/2019 TECHNIQUE: IV Contrast: 75ml Optiray 350 Axial images obtained with sagittal and coronal reformats. All CT scans at the facility use one or more dose reduction, viz: automated exposure control, ma/kV adjustment per patient size (including targeted exams where dose is matched to indication, i.e. head), or iterative reconstruction technique. FINDINGS: HEART AND MEDIASTINAL STRUCTURES: MediPort catheter remains in place. There has been significant interval improvement. Previously described enlarged mediastinal lymph node which was approximately 3.2 x 2.1 centimeters is now 1.8 x 1.1 centimeter. Other mediastinal lymph nodes are not significantly changed. There is an approximately the 6 millimeter thick pericardial effusion seen along the left lateral heart margin and fluid is also seen in the anterior pericardial recess. A small amount of coronary calcification is noted. LUNGS AND PLEURAL SPACES: There has been interval improvement with decrease in size of the pleural-based solid nodule in the left lower lobe. This did measure approximately 2.4 centimeters. It is now approximately 1.5 centimeters. There are continued parenchymal densities in the inferior lingula and left lower lobe which are not significantly changed consistent with atelectasis and/or pneumonia. BONY STRUCTURES: No acute bony abnormalities apparent. UPPER ABDOMEN: There is fatty infiltration of the liver and postsurgical change from cholecystectomy. Aortic calcifications are noted and mesenteric and bilateral renal artery calcifications are apparent ADDITIONAL FINDINGS: No other significant abnormalities. IMPRESSION: Interval improvement with decrease in enlarged lymph node in the middle mediastinum anterior to the left mainstem bronchus and decrease in left lower lobe pulmonary nodule. Continued consolidation of left lung base consistent with infiltrate and/or atelectasis. Pericardial effusion. Dictated by: Eleazar Grimes 01/10/2020 10:35 Electronically signed by Eleazar Grimes in [place] 01/10/2020 10:35
[2020-01-10 09:18] LABS: Basophils % 0.3 % (0.1-2.0); Chloride 106 mmol/L (98-107); Eosinophils # 0.1 K/mm3 (0.0-0.4); Eosinophils % 3.5 % (0.1-12.0); Lymphocytes # 0.9 K/mm3 (0.7-4.5); Lymphocytes % 33.5 % (10-50); Mean Corpuscular HGB Conc 31.4 g/dL (31.8-35.4); Mean Corpuscular Hemoglobin 29.4 pg (27.0-31.2); Mean Corpuscular Volume 93.5 fl (81-99); Mean Platelet Volume 9.4 fl (7.4-10.4); Monocytes # 0.2 K/mm3 (0.1-1.0); Monocytes % 6.9 % (1.7-9.3); Neutrophils # 1.6 K/mm3 (1.8-7.8); Neutrophils % 55.9 % (37.0-80.0); Platelet Count 77 K/mm3 (142-424); Red Blood Count 2.41 M/mm3 (4.20-5.40); Red Cell Distribution Width 21.4 % (11.5-17.5); White Blood Count 2.8 K/mm3 (4.8-10.8)
[2020-01-10 09:19] LABS: Potassium 4.6 mmoL/L (3.5-5.1); Sodium 138 mmol/L (136-145)
[2020-01-10 09:21] LABS: Alanine Aminotransferase 22 U/L (12-78); Alkaline Phosphatase 90 U/L (38-126); Aspartate Amino Transferase 25 U/L (14-36); Blood Urea Nitrogen 6 mg/dl (7-17); Estimated Glomerular Filt Rate 74 ml/min (>60); GFR (African American) 90 ML/MIN (>60)
[2020-01-10 09:22] LABS: Albumin Level 3.6 g/dl (3.5-5.0); Albumin/Globulin Ratio 1.2 (1.1-1.8); Anion Gap 17.6 mEq/L (5-15); Calcium 7.5 mg/dl (8.4-10.2); Carbon Dioxide 19 mmol/L (22.0-30.0); Glucose 116 mg/dl (74-100); Total Protein,Serum 6.6 g/dl (6.3-8.2)
[2020-01-10 09:28] LABS: Bilirubin,Total 0.1 mg/dl (0.2-1.3)
[2020-01-10 09:36] LABS: Hematocrit 22.5 % (37.0-47.0); Hemoglobin 7.1 g/dL (12.2-16.2)
== END ==
PROVIDERS: PCP Internal Medicine Cardiovascular Disease; Visit Provider Internal Medicine Medical Oncology
DX: C34.92 Malignant neoplasm of unspecified part of left bronchus or lung (principal); C78.7 Secondary malignant neoplasm of liver and intrahepatic bile duct
CPT/HCPCS: 36415; 71260; 74177; 80053; 85025; Q9967

== ENCOUNTER 2020-01-13 08:05 | Outpatient (CLI) | payer MEDICARE, MEDICAID, SELFPAY ==
[2020-01-13] VITALS (19 sets, daily range): BP systolic 111–137; BP diastolic 68–98; PULSE 73–82; RESP 18–20; TEMP 36.1–36.5; O2SAT 100; BMI 35.3
[2020-01-13 08:24] LABS: Basophils % 0.7 % (0.1-2.0); Eosinophils # 0.1 K/mm3 (0.0-0.4); Eosinophils % 4.8 % (0.1-12.0); Lymphocytes # 0.8 K/mm3 (0.7-4.5); Lymphocytes % 35.8 % (10-50); Mean Corpuscular HGB Conc 30.8 g/dL (31.8-35.4); Mean Corpuscular Hemoglobin 29.7 pg (27.0-31.2); Mean Corpuscular Volume 96.6 fl (81-99); Mean Platelet Volume 9.2 fl (7.4-10.4); Monocytes # 0.2 K/mm3 (0.1-1.0); Monocytes % 9.9 % (1.7-9.3); Neutrophils # 1.1 K/mm3 (1.8-7.8); Neutrophils % 48.8 % (37.0-80.0); Platelet Count 201 K/mm3 (142-424); Red Blood Count 2.35 M/mm3 (4.20-5.40); Red Cell Distribution Width 22.1 % (11.5-17.5); White Blood Count 2.3 K/mm3 (4.8-10.8)
[2020-01-13 08:31] LABS: Hematocrit 22.7 % (37.0-47.0)
[2020-01-13 16:32] LABS: Chloride 104 mmol/L (98-107); Sodium 137 mmol/L (136-145)
[2020-01-13 16:33] LABS: Hematocrit 27.7 % (37.0-47.0); Hemoglobin 8.9 g/dL (12.2-16.2)
[2020-01-13 16:34] LABS: Alanine Aminotransferase 16 U/L (12-78); Alkaline Phosphatase 78 U/L (38-126); Aspartate Amino Transferase 20 U/L (14-36); Blood Urea Nitrogen 6 mg/dl (7-17); Carbon Dioxide 23 mmol/L (22.0-30.0); Creatinine Clearance Estimated 103 mL/min (50-200); Estimated Glomerular Filt Rate 65 ml/min (>60); GFR (African American) 78 ML/MIN (>60)
[2020-01-13 16:35] LABS: Albumin Level 3.6 g/dl (3.5-5.0); Albumin/Globulin Ratio 1.3 (1.1-1.8); Bilirubin,Total < 0.1 mg/dl (0.2-1.3); Calcium 8.4 mg/dl (8.4-10.2); Globulin 2.8 g/dL (1.3-3.2); Glucose 155 mg/dl (74-100); Potassium 4.1 mmoL/L (3.5-5.1); Total Protein,Serum 6.4 g/dl (6.3-8.2)
== END 2020-01-13 16:15 | disposition home or self-care (01) ==
LOC: INF 08:05
PROVIDERS: Visit Provider Internal Medicine Medical Oncology
DX: C34.90 Malignant neoplasm of unspecified part of unspecified bronchus or lung (principal); D64.9 Anemia, unspecified; Z45.2 Encounter for adjustment and management of vascular access device
CPT/HCPCS: 36430; 80053; 85014; 85018; 85025; 86850; J1642; P9016

== ENCOUNTER 2020-01-17 08:12 | Outpatient (CLI) | payer MEDICARE, MEDICAID, SELFPAY ==
[2020-01-17] VITALS (8 sets, daily range): BP systolic 93–120; BP diastolic 45–76; PULSE 77–87; RESP 18; TEMP 36.2; O2SAT 95–96
== END 2020-01-17 12:40 | disposition home or self-care (01) ==
LOC: INF 08:12
PROVIDERS: Visit Provider Internal Medicine Medical Oncology
DX: Z51.11 Encounter for antineoplastic chemotherapy (principal); C34.92 Malignant neoplasm of unspecified part of left bronchus or lung; C78.7 Secondary malignant neoplasm of liver and intrahepatic bile duct
CPT/HCPCS: 96413; 96415; 96417; J1642; J8501; J9022; J9045; J9181; Q0166

== ENCOUNTER 2020-01-18 08:05 | Outpatient (CLI) | payer MEDICARE, MEDICAID, SELFPAY ==
[2020-01-18 08:33] VITALS: BP 115/62; PULSE 81; RESP 18; TEMP 36.6; O2SAT 96
[2020-01-18 09:03] VITALS: BP 109/59; PULSE 85; RESP 20; O2SAT 96
[2020-01-18 09:33] VITALS: BP 112/69; PULSE 84; RESP 18; O2SAT 96
[2020-01-18 10:03] VITALS: BP 123/68; PULSE 81; RESP 18; O2SAT 95
[2020-01-18 10:33] VITALS: BP 116/61; PULSE 80; RESP 18; O2SAT 96
[2020-01-18 10:44] VITALS: BP 107/59; PULSE 89; RESP 18; O2SAT 96
== END 2020-01-18 10:44 | disposition home or self-care (01) ==
LOC: INF 08:18
PROVIDERS: Visit Provider Internal Medicine Medical Oncology
DX: C34.92 Malignant neoplasm of unspecified part of left bronchus or lung (principal); Z51.11 Encounter for antineoplastic chemotherapy; C78.7 Secondary malignant neoplasm of liver and intrahepatic bile duct
CPT/HCPCS: 96413; 96415; J1642; J9181; Q0166

== ENCOUNTER 2020-01-19 08:00 | Outpatient (CLI) | payer MEDICARE, MEDICAID, SELFPAY ==
[2020-01-19 08:25] VITALS: BP 121/68; PULSE 80; RESP 18; TEMP 36.6; O2SAT 97
[2020-01-19 09:09] VITALS: BP 124/62; PULSE 77; RESP 18; O2SAT 96
[2020-01-19 09:39] VITALS: BP 122/61; PULSE 79; RESP 18; O2SAT 97
[2020-01-19 10:09] VITALS: BP 118/70; PULSE 81; RESP 18; O2SAT 97
[2020-01-19 10:39] VITALS: BP 120/68; PULSE 78; RESP 18; O2SAT 97
[2020-01-19 10:50] VITALS: BP 118/64; PULSE 73; RESP 18; O2SAT 96
== END 2020-01-19 11:05 | disposition home or self-care (01) ==
LOC: INF 08:21
PROVIDERS: Visit Provider Internal Medicine Medical Oncology
DX: Z51.11 Encounter for antineoplastic chemotherapy (principal); C34.92 Malignant neoplasm of unspecified part of left bronchus or lung; C78.7 Secondary malignant neoplasm of liver and intrahepatic bile duct
CPT/HCPCS: 96413; 96415; J1642; J9181; Q0166

== ENCOUNTER 2020-02-03 09:10 | Outpatient (CLI) | payer MEDICARE, MEDICAID, SELFPAY ==
[2020-02-03 09:21] VITALS: BMI 36.2
[2020-02-03 09:35] VITALS: TEMP 36
[2020-02-03 09:45] LABS: Basophils % 0.9 % (0.1-2.0); Eosinophils # 0.2 K/mm3 (0.0-0.4); Eosinophils % 4.3 % (0.1-12.0); Hematocrit 26.1 % (37.0-47.0); Hemoglobin 8.7 g/dL (12.2-16.2); Lymphocytes # 1.6 K/mm3 (0.7-4.5); Lymphocytes % 43.3 % (10-50); Mean Corpuscular HGB Conc 33.6 g/dL (31.8-35.4); Mean Corpuscular Hemoglobin 30.4 pg (27.0-31.2); Mean Corpuscular Volume 90.6 fl (81-99); Mean Platelet Volume 10.1 fl (7.4-10.4); Monocytes # 0.4 K/mm3 (0.1-1.0); Monocytes % 11.1 % (1.7-9.3); Neutrophils # 1.5 K/mm3 (1.8-7.8); Neutrophils % 40.4 % (37.0-80.0); Platelet Count 111 K/mm3 (142-424); Red Blood Count 2.88 M/mm3 (4.20-5.40); Red Cell Distribution Width 20.6 % (11.5-17.5); White Blood Count 3.8 K/mm3 (4.8-10.8)
[2020-02-03 09:53] LABS: Alanine Aminotransferase 30 U/L (12-78); Albumin Level 4.1 g/dl (3.5-5.0); Albumin/Globulin Ratio 1.4 (1.1-1.8); Alkaline Phosphatase 77 U/L (38-126); Anion Gap 19.1 mEq/L (5-15); Aspartate Amino Transferase 25 U/L (14-36); Blood Urea Nitrogen 15 mg/dl (7-17); Calcium 7.8 mg/dl (8.4-10.2); Carbon Dioxide 21 mmol/L (22.0-30.0); Chloride 100 mmol/L (98-107); Creatinine Clearance Estimated 95 mL/min (50-200); Estimated Glomerular Filt Rate 57 ml/min (>60); GFR (African American) 69 ML/MIN (>60); Glucose 132 mg/dl (74-100); Potassium 4.1 mmoL/L (3.5-5.1); Sodium 136 mmol/L (136-145); Total Protein,Serum 7.1 g/dl (6.3-8.2)
[2020-02-03 09:58] LABS: Bilirubin,Total < 0.1 mg/dl (0.2-1.3)
== END 2020-02-03 11:10 | disposition home or self-care (01) ==
LOC: INF 09:19
PROVIDERS: Visit Provider Internal Medicine Medical Oncology
DX: Z45.2 Encounter for adjustment and management of vascular access device (principal); C34.92 Malignant neoplasm of unspecified part of left bronchus or lung; C78.7 Secondary malignant neoplasm of liver and intrahepatic bile duct
CPT/HCPCS: 80053; 85025; J1642

== ENCOUNTER 2020-02-07 08:12 | Outpatient (CLI) | payer MEDICARE, MEDICAID, SELFPAY ==
[2020-02-07 09:39] VITALS: BP 114/67; PULSE 90; RESP 20; TEMP 36.5; O2SAT 98
[2020-02-07 10:09] VITALS: BP 106/63; PULSE 81; RESP 18; O2SAT 98
[2020-02-07 10:24] VITALS: BP 130/56; PULSE 93; RESP 20; O2SAT 97
== END 2020-02-07 10:26 | disposition home or self-care (01) ==
LOC: INF 08:12
PROVIDERS: Visit Provider Internal Medicine Medical Oncology
DX: Z51.11 Encounter for antineoplastic chemotherapy (principal); C34.92 Malignant neoplasm of unspecified part of left bronchus or lung; C78.7 Secondary malignant neoplasm of liver and intrahepatic bile duct
CPT/HCPCS: 96413; J1642; J9022

== ENCOUNTER 2020-02-24 12:00 | Outpatient (CLI) | payer MEDICARE, MEDICAID, SELFPAY ==
[2020-02-24 12:02] VITALS: BMI 36.2
[2020-02-24 12:12] LABS: Basophils % 0.5 % (0.1-2.0); Eosinophils # 0.2 K/mm3 (0.0-0.4); Eosinophils % 3.3 % (0.1-12.0); Hematocrit 27.5 % (37.0-47.0); Hemoglobin 8.6 g/dL (12.2-16.2); Lymphocytes # 1.4 K/mm3 (0.7-4.5); Lymphocytes % 22.5 % (10-50); Mean Corpuscular HGB Conc 31.2 g/dL (31.8-35.4); Mean Corpuscular Volume 96.1 fl (81-99); Mean Platelet Volume 9.5 fl (7.4-10.4); Monocytes # 0.4 K/mm3 (0.1-1.0); Monocytes % 5.4 % (1.7-9.3); Neutrophils # 4.4 K/mm3 (1.8-7.8); Neutrophils % 68.3 % (37.0-80.0); Platelet Count 224 K/mm3 (142-424); Red Blood Count 2.87 M/mm3 (4.20-5.40); Red Cell Distribution Width 20.6 % (11.5-17.5); White Blood Count 6.4 K/mm3 (4.8-10.8)
[2020-02-24 12:20] LABS: Alanine Aminotransferase 31 U/L (12-78); Albumin/Globulin Ratio 1.1 (1.1-1.8); Alkaline Phosphatase 81 U/L (38-126); Anion Gap 14.3 mEq/L (5-15); Aspartate Amino Transferase 30 U/L (14-36); Blood Urea Nitrogen 16 mg/dl (7-17); Calcium 7.8 mg/dl (8.4-10.2); Carbon Dioxide 22 mmol/L (22.0-30.0); Chloride 104 mmol/L (98-107); Creatinine Clearance Estimated 119 mL/min (50-200); Estimated Glomerular Filt Rate 74 ml/min (>60); GFR (African American) 90 ML/MIN (>60); Globulin 3.7 g/dL (1.3-3.2); Glucose 85 mg/dl (74-100); Potassium 4.3 mmoL/L (3.5-5.1); Sodium 136 mmol/L (136-145); Total Protein,Serum 7.7 g/dl (6.3-8.2)
[2020-02-24 12:21] LABS: Bilirubin,Total 0.1 mg/dl (0.2-1.3)
[2020-02-24 13:37] VITALS: BP 104/65; PULSE 83; RESP 20; O2SAT 99
[2020-02-24 14:07] VITALS: BP 107/57; PULSE 88; RESP 18; O2SAT 99
[2020-02-24 14:25] VITALS: BP 92/59; PULSE 89; RESP 18; O2SAT 98
== END 2020-02-24 14:25 | disposition home or self-care (01) ==
LOC: INF 12:00
PROVIDERS: Visit Provider Internal Medicine Medical Oncology
DX: Z51.11 Encounter for antineoplastic chemotherapy (principal); C34.92 Malignant neoplasm of unspecified part of left bronchus or lung
CPT/HCPCS: 80053; 85025; 96413; J1642; J9022

== ENCOUNTER 2020-03-12 14:56 | Emergency (ER) | payer MEDICARE, MEDICAID, SELFPAY ==
[2020-03-12 14:58] VITALS: BP 96/55; PULSE 77; RESP 20; TEMP 36.8; O2SAT 99; BMI 33.2
--- NOTE | 2020-03-12 15:18 | HMH.EDUTC ---
[facility] [place] Disposition Condition on Discharge: Good Time of Disposition: 15:31 <Yue Berman E - Last Filed: 03/12/20 15:32> <Spenser Ray S - Last Filed: 03/12/20 17:25> Clinical Impression: Weakness, Renal insufficiency, Seizure disorder Disposition: Home, Self-Care Additional Instructions: fluids and see pcp for follow up Referrals: Spenser Merritt [Primary Care Provider] - Medical Decision Making - Domenico Inquiry Pt receiving controlled substance: No Domenico was queried for this patient: No <Yue Berman - Last Filed: 03/12/20 15:32> - Lab Data Lab results reviewed: Yes: I reviewed the patient's lab results. Result diagrams: 03/12/20 15:55 03/12/20 15:55 - Radiology Data #1 Image(s): Chest Image Reviewed: Yes I reviewed the patient's radiology image Preliminary Findings: Normal/NAD - CT Data CT Scan: Head Time Received: 17:[address] Reviewed: Yes: I have viewed the radiologist's interpretation Preliminary Findings: Abnormal (chronic changes ) - ECG Data Tracing #1 I reviewed this ECG and interpreted as documented below: Normal Sinus Rhythm: Yes Ischemic changes: non-specific ST-T wave changes - Reevaluation(s) Time: 17:24 <Spenser Ray S - Last Filed: 03/12/20 17:25> Vital Signs: 03/12/20 14:58 03/12/20 15:19 03/12/20 15:58 Temperature 98.2 F 98.2 F Temperature Source Oral Oral Pulse Rate [Radial] 77 77 80 Respiratory Rate 20 20 18 Blood Pressure [Right Arm] 96/55 L 96/55 L 93/51 L Blood Pressure Mean [Right Arm] 68 68 65 Blood Pressure Source [Right Arm] Automatic Cuff Automatic Cuff Blood Pressure Position [Right Arm] Sitting Sitting 02 Sat by Pulse Oximetry 99 99 96 Oxygen Delivery Method Room Air Room Air - Lab Data Lab Results 03/12/20 15:20: Urine Color Yellow, Urine Appearance Cloudy, Urine pH 5.5, Ur Specific Tuthill >= 1.030, Urine Protein Negative, Urine Glucose (UA) Negative, Urine Ketones Negative, Urine Blood 1+, Urine Nitrate Negative, Urine Bilirubin Negative, Urine Urobilinogen 0.2, Ur Leukocyte Esterase Trace, Urine RBC None, Urine WBC 5-10, Ur Squamous Epith Cells 10-20, Urine Bacteria 1+ 03/12/20 15:50: SARS-CoV-2 IgG Ab (Rapid) Negative, SARS-CoV-2 IgM Ab (Rapid) Negative 03/12/20 15:50: Digoxin < 0.40 03/12/20 15:55: WBC 8.4, RBC 2.79 L, Hgb 8.9 L, Hct 27.6 L, MCV 98.9, MCH 31.7 H, MCHC 32.1, RDW 17.4, Plt Count 269, MPV 7.6, Neut % (Auto) 74.7, Lymph % (Auto) 14.1, Marquette % (Auto) 4.9, Eos % (Auto) 4.8, Baso % (Auto) 1.4, Neut # (Auto) 6.3, Lymph # (Auto) 1.2, Marquette # (Auto) 0.4, Eos # (Auto) 0.4, Baso # (Auto) 0.1 03/12/20 15:55: Sodium 133 L, Potassium 4.3, Chloride 101, Carbon Dioxide 23, Anion Gap 13.3, BUN 22 H, Creatinine 1.20 H, Estimated Creat Clear 77, Estimated GFR 46 L, Est GFR ( Amer) 56 L, Glucose 108 H, Calcium 8.4, Total Bilirubin 0.3, AST 19, ALT 12, Alkaline Phosphatase 97, Troponin I < 0.01, Total Protein 7.3, Albumin 3.7, Globulin 3.6 H, Albumin/Globulin Ratio 1.0 L 03/12/20 16:49: Ammonia < 9 L Orders (Tests/Meds): ED MEDICATIONS Discontinued Medications Generic Name Dose Route Start Last Admin Trade Name Freq PRN Reason Stop Dose Admin Sodium Chloride 1,000 mls @ 999 mls/hr 03/12/20 15:26 03/12/20 16:06 Sod Chlor 0.9% 1000ml Bag IV 03/12/20 16:26 999 mls/hr .Q1H1M ONE Administration ORDERS Category Date Time Status CT head/brain wo con Stat Cat Scan 03/12/20 15:28 Taken Chest XR 2 view (NOT portable) [XR chest 2V] Stat Exams 03/12/20 15:24 Taken Troponin I Q3H Lab 03/12/20 18:30 Ordered Troponin I Q3H Lab 03/12/20 21:30 Ordered - Reevaluation(s) Reevaluation #1: improved (Spenser aRy) Medical Decision Narrative: Patient reports that she has been feeling off since Friday and has been having worsening of right sided weakness since Friday Daughter reports not eating well, blood pressure low at home when they checked it, complaining of dizziness and concerned because
[2020-03-12 15:19] VITALS: BP 96/55; PULSE 77; RESP 20; TEMP 36.8; O2SAT 99; BMI 33.0
--- NOTE | 2020-03-12 15:24 | XR_ITS ---
PROCEDURE: XR CHEST 2V CLINICAL HISTORY: WEAKNESS Generalized weakness, lung cancer COMPARISON: CXR CHEST(2 VIEWS-NOT PORTABLE) from 04/20/2017 XR CHEST PORTABLE from 06/01/2019 XR CHEST PORTABLE from 06/02/2019 CT CHEST W CON from 01/10/2020 FINDINGS: The cardiomediastinal silhouette and pulmonary vascularity are within normal limits. Left subclavian MediPort catheter is present. The tip is in the region of the SVC. There is prominence of the left hilum consistent with adenopathy. There is consolidation in the left lower lobe. Atelectasis or infiltrate is present in the right lung base is well. Upper lobes are clear. No acute bony abnormalities. IMPRESSION: 1. Left hilar adenopathy. 2. Bilateral lower lobe atelectasis or infiltrate left greater than right Dictated by: Feliz Parmra MD 03/12/2020 19:36 Electronically signed by Feliz Parmar MD in [place] 03/12/2020 19:36
--- NOTE | 2020-03-12 15:24 | ECG_ITS ---
APPROVED REPORT Exam: Resting ECG HR:87 bpm ECG Measurements Heart Rate 87 AXES WV 122 P 28 QRSd 74 QRS 4 QT 376 T 61 QTc 452 <Conclusion> Normal sinus rhythm Nonspecific ST and T wave abnormality Abnormal ECG Electronically signed by : Jimenez Mead, 03/14/2020 15:53:14
--- NOTE | 2020-03-12 15:28 | CT_ITS ---
PROCEDURE: CT HEAD/BRAIN WO CON CLINICAL INDICATION: WEAKNESS, DIZZINESS, LOW BP History of liver lung cancer, prior stroke, left-sided weakness COMPARISON: CT HEAD/BRAIN WO CON from 06/01/2019 TECHNIQUE: Axial images obtained. All CT scans at the facility use one or more dose reduction, viz: automated exposure control, ma/kV adjustment per patient size (including targeted exams where dose is matched to indication, i.e. head), or iterative reconstruction technique. FINDINGS: No midline shift, mass effect, intracranial hemorrhage, hydrocephalus, or extra-axial fluid collection is evident. There is a large area of encephalomalacia in the right posterior frontal, parietal, and temporal region consistent with an old infarction. The calvarium has an unremarkable appearance. No mastoid effusion. No sinus air-fluid level. IMPRESSION: 1. No acute intracranial findings. 2. Large area encephalomalacia in the right temporal parietal and frontal region consistent with old infarction Dictated by: Feliz Parmar MD 03/12/2020 19:27 Electronically signed by Feliz Parmar MD in [facility] 03/12/2020 19:27
[2020-03-12 15:31] LABS: Microscopic, Urine URINE MICROSCOPIC (MICROSCOPIC)
[2020-03-12 15:34] LABS: Appearance,Urine CLOUDY (Clear); Bilirubin,Urine Negative (Negative); Blood, Urine 1+ (Negative); Color,Urine YELLOW (Yellow); Glucose,Urine (UA) Negative (Negative); Ketones,Urine Negative (Negative); Leukocyte Esterase,Urine TRACE (Negative); Nitrate,Urine Negative (Negative); PH,Urine 5.5 (5.0-8.5); Protein,Urine Negative (Negative); Specific Gravity, Urine >= 1.030 (1.005-1.030); Urobilinogen,Urine 0.2 EU/dl (0.2)
[2020-03-12 15:45] LABS: Bacteria,Urine 1+ /lpf
[2020-03-12 15:58] VITALS: BP 93/51; PULSE 80; RESP 18; O2SAT 96
[2020-03-12 16:13] LABS: Basophils # 0.1 K/mm3 (0-0.2); Basophils % 1.4 % (0.1-2.0); Eosinophils # 0.4 K/mm3 (0.0-0.4); Eosinophils % 4.8 % (0.1-12.0); Hematocrit 27.6 % (37.0-47.0); Hemoglobin 8.9 g/dL (12.2-16.2); Lymphocytes # 1.2 K/mm3 (0.7-4.5); Lymphocytes % 14.1 % (10-50); Mean Corpuscular HGB Conc 32.1 g/dL (31.8-35.4); Mean Corpuscular Hemoglobin 31.7 pg (27.0-31.2); Mean Corpuscular Volume 98.9 fl (81-99); Mean Platelet Volume 7.6 fl (7.4-10.4); Monocytes # 0.4 K/mm3 (0.1-1.0); Monocytes % 4.9 % (1.7-9.3); Neutrophils # 6.3 K/mm3 (1.8-7.8); Neutrophils % 74.7 % (37.0-80.0); Platelet Count 269 K/mm3 (142-424); Red Blood Count 2.79 M/mm3 (4.20-5.40); Red Cell Distribution Width 17.4 % (11.5-17.5); White Blood Count 8.4 K/mm3 (4.8-10.8)
[2020-03-12 16:17] LABS: Chloride 101 mmol/L (98-107); Potassium 4.3 mmoL/L (3.5-5.1); Sodium 133 mmol/L (136-145)
[2020-03-12 16:20] LABS: Alanine Aminotransferase 12 U/L (12-78); Albumin Level 3.7 g/dl (3.5-5.0); Alkaline Phosphatase 97 U/L (38-126); Anion Gap 13.3 mEq/L (5-15); Aspartate Amino Transferase 19 U/L (14-36); Bilirubin,Total 0.3 mg/dl (0.2-1.3); Blood Urea Nitrogen 22 mg/dl (7-17); Calcium 8.4 mg/dl (8.4-10.2); Carbon Dioxide 23 mmol/L (22.0-30.0); Creatinine Clearance Estimated 77 mL/min (50-200); Estimated Glomerular Filt Rate 46 ml/min (>60); GFR (African American) 56 ML/MIN (>60); Globulin 3.6 g/dL (1.3-3.2); Glucose 108 mg/dl (74-100); Total Protein,Serum 7.3 g/dl (6.3-8.2)
[2020-03-12 16:33] LABS: Troponin I < 0.01 ng/ml (0.00-0.034)
[2020-03-12 16:46] LABS: Coronavirus 19 IgG Antibody Negative (Negative); Coronavirus 19 IgM Antibody Negative (Negative)
[2020-03-12 17:00] LABS: Digoxin < 0.40 ng/ml (0.2-2.00)
[2020-03-12 17:02] LABS: Ammonia < 9 umol/L (9-30)
[2020-03-12 17:35] VITALS: BP 95/56; PULSE 80; RESP 20; TEMP 36.8; O2SAT 98
[2020-03-12 18:07] LABS: Thyroid Stimulating Hormone 2.13 uIU/mL (0.465-4.68)
== END 2020-03-12 17:37 | disposition home or self-care (01) ==
LOC: UTC 15:01 → ER 15:21
PROVIDERS: Emergency Provider Emergency Medicine; PCP Family Medicine
DX: N28.9 Disorder of kidney and ureter, unspecified (principal); G40.909 Epilepsy, unspecified, not intractable, without status epilepticus; I10 Essential (primary) hypertension; E78.5 Hyperlipidemia, unspecified; E11.9 Type 2 diabetes mellitus without complications; I48.20 Chronic atrial fibrillation, unspecified; J44.9 Chronic obstructive pulmonary disease, unspecified; Z86.73 Personal history of transient ischemic attack (TIA), and cerebral infarction without residual deficits; Z87.891 Personal history of nicotine dependence; Z88.7 Allergy status to serum and vaccine
CPT/HCPCS: 70450; 71046; 80053; 80162; 81001; 82140; 84436; 84443; 84484; 85025; 86328; 93005; 96365; 99284

== ENCOUNTER 2020-03-16 08:22 | Outpatient (CLI) | payer MEDICARE, MEDICAID, SELFPAY ==
[2020-03-16 08:21] VITALS: BMI 36.2
[2020-03-16 08:45] LABS: Basophils % 0.6 % (0.1-2.0); Eosinophils # 0.3 K/mm3 (0.0-0.4); Eosinophils % 5.4 % (0.1-12.0); Hematocrit 25.4 % (37.0-47.0); Hemoglobin 8.1 g/dL (12.2-16.2); Lymphocytes # 0.7 K/mm3 (0.7-4.5); Lymphocytes % 11.2 % (10-50); Mean Corpuscular HGB Conc 31.8 g/dL (31.8-35.4); Mean Corpuscular Hemoglobin 31.4 pg (27.0-31.2); Mean Corpuscular Volume 98.5 fl (81-99); Mean Platelet Volume 7.9 fl (7.4-10.4); Monocytes # 0.4 K/mm3 (0.1-1.0); Monocytes % 6.2 % (1.7-9.3); Neutrophils # 4.6 K/mm3 (1.8-7.8); Neutrophils % 76.6 % (37.0-80.0); Platelet Count 225 K/mm3 (142-424); Red Blood Count 2.58 M/mm3 (4.20-5.40); Red Cell Distribution Width 17.7 % (11.5-17.5)
[2020-03-16 08:51] LABS: Chloride 105 mmol/L (98-107); Potassium 3.8 mmoL/L (3.5-5.1); Sodium 138 mmol/L (136-145)
[2020-03-16 08:53] LABS: Alanine Aminotransferase 20 U/L (12-78); Aspartate Amino Transferase 35 U/L (14-36); Blood Urea Nitrogen 6 mg/dl (7-17); Creatinine Clearance Estimated 119 mL/min (50-200); Estimated Glomerular Filt Rate 74 ml/min (>60); GFR (African American) 90 ML/MIN (>60)
[2020-03-16 08:54] LABS: Albumin Level 3.3 g/dl (3.5-5.0); Alkaline Phosphatase 101 U/L (38-126); Anion Gap 15.8 mEq/L (5-15); Bilirubin,Total 0.3 mg/dl (0.2-1.3); Calcium 7.1 mg/dl (8.4-10.2); Carbon Dioxide 21 mmol/L (22.0-30.0); Globulin 3.2 g/dL (1.3-3.2); Glucose 134 mg/dl (74-100); Total Protein,Serum 6.5 g/dl (6.3-8.2)
[2020-03-16 10:41] VITALS: BP 97/41; PULSE 71; RESP 18; TEMP 36.4; O2SAT 98
[2020-03-16 11:14] VITALS: BP 99/48; PULSE 78; RESP 18; O2SAT 97
[2020-03-16 11:35] VITALS: BP 101/48; PULSE 71; RESP 18; O2SAT 97
== END 2020-03-16 11:39 | disposition home or self-care (01) ==
LOC: INF 08:22
PROVIDERS: Visit Provider Internal Medicine Medical Oncology
DX: Z51.11 Encounter for antineoplastic chemotherapy (principal); C34.92 Malignant neoplasm of unspecified part of left bronchus or lung
CPT/HCPCS: 36415; 80053; 85025; 96413; J9022

== ENCOUNTER 2020-04-03 08:25 | Outpatient (CLI) | payer MEDICARE, MEDICAID, SELFPAY ==
[2020-04-03 08:23] VITALS: BMI 37.0
--- NOTE | 2020-04-03 08:26 | CA_ITS ---
APPROVED REPORT EXAM: Comprehensive 2D, Doppler, and color-flow Echocardiogram Cattle Brander: Flaquita Hare CRT Ht: 5 ft 4 in Wt: 216lbs BSA: 2.02 BP: 117/59 mmHg Indications: LUNG CA,LIVER CA CHEMO EF 20-30 06/03/19, EF >45 09/02/19, CVA, CM 2D Dimensions LVOT 1.68 cm (M/F) 1.5-2.5 M-Mode Dimensions RVDd 2.67 cm (0.9-2.6) LVDd 5.43 cm (3.5-5.7) LVDs 4.15 cm (3.5-5.7) IVSd 1.49 cm (0.6-1.1) PWd 0.65 cm (0.6-1.1) EF (Teich) 46.60% FS 23.60% EDV (Teich) 143.10 mL ESV (Teich) 76.40 mL LV Diastology E/A Ratio 0.73 Aortic Valve LVOT Max 126.00 (70-110 cm/s) LVOT VTI 20.12 cm Mitral Valve MV A Velocity 73.00 (40-130 cm/s) Left Ventricle Left atrium is mildly enlarged, left ventricle is normal size, mild concentric left ventricular hypertrophy, visually estimated ejection fraction 50% with no regional wall motion abnormality, grade 1 diastolic dysfunction seen without tissue Doppler evidence of raise left atrial pressure. Right Ventricle Right atrium and right ventricle normal size and contractility. Aortic Valve Aortic valve is thickened and calcified leaflet chordae display mobility, aortic outflow is not indicated above aortic stenosis or aortic insufficiency. Mitral Valve Mitral valve leaflets are minimally thickened, there is no mitral stenosis, there is mild mitral regurgitation. Tricuspid Valve Tricuspid valve is grossly normal, there is mild tricuspid regurgitation. Tricuspid regurgitation jet velocity is inadequate for calculation of the right ventricular systolic pressure. Pulmonic Valve Pulmonic valve is poorly visualized. Great Vessels Aortic root is normal size. Pericardium No significant pericardial effusion noted. Conclusion 1. Mildly enlarged left atrium, normal left ventricular size, mild concentric left ventricular hypertrophy, visually estimated ejection fraction 50% with no regional wall motion abnormality, grade 1 diastolic dysfunction seen without tissue Doppler evidence of raise left atrial pressure. 2. Thickened and calcified aortic valve without aortic stenosis aortic insufficiency. 3. Mild mitral and tricuspid regurgitation. 4. No significant pericardial effusion noted. Electronically signed by : Kenyon Umanzor, 04/03/2020 19:14:13
[2020-04-03 08:33] LABS: Basophils % 0.2 % (0.1-2.0); Eosinophils # 0.2 K/mm3 (0.0-0.4); Eosinophils % 2.5 % (0.1-12.0); Hematocrit 27.7 % (37.0-47.0); Hemoglobin 8.9 g/dL (12.2-16.2); Lymphocytes # 0.7 K/mm3 (0.7-4.5); Lymphocytes % 11.4 % (10-50); Mean Corpuscular HGB Conc 32.1 g/dL (31.8-35.4); Mean Corpuscular Hemoglobin 32.1 pg (27.0-31.2); Mean Corpuscular Volume 100.1 fl (81-99); Mean Platelet Volume 8.1 fl (7.4-10.4); Monocytes # 0.4 K/mm3 (0.1-1.0); Monocytes % 5.7 % (1.7-9.3); Neutrophils # 5.2 K/mm3 (1.8-7.8); Neutrophils % 80.2 % (37.0-80.0); Platelet Count 173 K/mm3 (142-424); Red Blood Count 2.77 M/mm3 (4.20-5.40); White Blood Count 6.5 K/mm3 (4.8-10.8)
[2020-04-03 08:39] LABS: Chloride 105 mmol/L (98-107); Sodium 136 mmol/L (136-145)
[2020-04-03 08:40] LABS: Potassium 4.8 mmoL/L (3.5-5.1)
[2020-04-03 08:42] LABS: Alanine Aminotransferase 17 U/L (12-78); Albumin Level 3.8 g/dl (3.5-5.0); Alkaline Phosphatase 116 U/L (38-126); Anion Gap 13.8 mEq/L (5-15); Aspartate Amino Transferase 33 U/L (14-36); Bilirubin,Total 0.4 mg/dl (0.2-1.3); Blood Urea Nitrogen 14 mg/dl (7-17); Carbon Dioxide 22 mmol/L (22.0-30.0); Creatinine Clearance Estimated 120 mL/min (50-200); Estimated Glomerular Filt Rate 74 ml/min (>60); GFR (African American) 89 ML/MIN (>60); Globulin 3.7 g/dL (1.3-3.2); Total Protein,Serum 7.5 g/dl (6.3-8.2)
[2020-04-03 08:43] LABS: Calcium 8.1 mg/dl (8.4-10.2); Glucose 128 mg/dl (74-100)
--- NOTE | 2020-04-03 09:40 | CT_ITS ---
PROCEDURE: CT CHEST W CON CLINCAL INDICATION: LUNG CA COMPARISON: CT CHEST W CON from 08/23/2019 CT CHEST W CON from 01/10/2020 CT ABDOMEN PELVIS W CON from 04/03/2020 TECHNIQUE: IV Contrast: 75ml Optiray 350 Axial images obtained with sagittal and coronal reformats. All CT scans at the facility use one or more dose reduction, viz: automated exposure control, ma/kV adjustment per patient size (including targeted exams where dose is matched to indication, i.e. head), or iterative reconstruction technique. FINDINGS: Tracheobronchial tree is unremarkable. Lung max are emphysematous particularly within the bilateral upper lobes. There is progressive increase in size of an infiltrative mass lesion within the superior segment of the left lower lobe which formally measured 29 millimeters x 32 millimeters now measures 52 mm x 37 millimeters. There is stable infiltration of the posterior segment of the left upper lobe. There are few scattered nodular densities again noted within the left lower lobe. A dominant pleural-based lesion in the left lower lobe is stable measuring 24 millimeters x 18 millimeters. There is interval increase in size of an lesion which formally measured 10 millimeters and now measures 18 millimeters. There are new subcentimeter nodular densities within the posterior periphery of the left lower lobe. Small left pleural effusion is noted. There is a new 4.5 millimeter noncalcified nodule within the right upper lobe. Shelly catheter is demonstrated. Partially visualized thyroid is unremarkable. There is interval increase in size of the mediastinal adenopathy. For reference an azygos lymph node which formally measured 14 millimeters now measures 33 millimeters x 18 millimeters. Coronary artery calcifications are present. Adrenal glands, soft tissues, and bony structures are unremarkable. IMPRESSION: Interval progressive mediastinal adenopathy, new nodules in the left lower lobe and right upper lobe as above, interval increase in size of the left lower lobe nodule and infiltrative nodular lesion within the superior segment of the left lower lobe Dictated by: Trey Woodard 04/03/2020 13:48 Electronically signed by Trey Woodard in [place] 04/03/2020 13:48
--- NOTE | 2020-04-03 09:40 | CT_ITS ---
PROCEDURE: CT ABDOMEN PELVIS W CON CLINICAL INDICATION: LUNG CA COMPARISON: CT ABDOMEN PELVIS W CON from 01/10/2020 TECHNIQUE: IV Contrast: 75ML OPTIRAY 350 Oral Contrast None Axial images obtained with sagittal and coronal reformats. All CT scans at the facility use one or more dose reduction, viz: automated exposure control, ma/kV adjustment per patient size (including targeted exams where dose is matched to indication, i.e. head), or iterative reconstruction technique. FINDINGS: CT scan abdomen with contrast: The patient is status post cholecystectomy. There is interval increase in size of all the low-dense hepatic mass lesions. For reference a lesion in the right lobe of the liver which formally measured 11 millimeters now measures 32 millimeters. There is a new periportal naomie mass measuring 47 millimeters x 39 millimeters. The adrenal glands, pancreas, spleen, kidneys, aorta, small and large bowel is unremarkable. Ventral hernia repair is noted. Soft tissues and bony structures are unremarkable. There are vascular calcifications. CT scan of the pelvis with contrast The patient is status post hysterectomy. Bladder, soft tissues, and bony structures are unremarkable. IMPRESSION: Interval progressive hepatic metastatic disease, periportal adenopathy, status post cholecystectomy and hysterectomy Dictated by: Trey Woodard 04/03/2020 14:02 Electronically signed by Trey Woodard in [place] 04/03/2020 14:02
== END 2020-04-03 10:15 | disposition home or self-care (01) ==
LOC: INF 08:26
PROVIDERS: Internal Medicine Medical Oncology; PCP Family Medicine; Visit Provider Internal Medicine Cardiovascular Disease
DX: C22.9 Malignant neoplasm of liver, not specified as primary or secondary (principal); E78.5 Hyperlipidemia, unspecified; I42.9 Cardiomyopathy, unspecified; I48.91 Unspecified atrial fibrillation; I51.3 Intracardiac thrombosis, not elsewhere classified; C34.90 Malignant neoplasm of unspecified part of unspecified bronchus or lung
CPT/HCPCS: 71260; 74177; 80053; 85025; 93306; J1642; Q9967

== ENCOUNTER 2020-04-10 09:41 | Outpatient (CLI) | payer MEDICARE, MEDICAID, SELFPAY ==
[2020-04-10 10:41] VITALS: BP 99/54; PULSE 73; RESP 20; TEMP 36.8; O2SAT 98
[2020-04-10 11:20] VITALS: BP 109/77; PULSE 83; RESP 20; O2SAT 97
== END 2020-04-10 11:25 | disposition home or self-care (01) ==
LOC: INF 09:41
PROVIDERS: Visit Provider Internal Medicine Medical Oncology
DX: Z51.11 Encounter for antineoplastic chemotherapy (principal); C22.9 Malignant neoplasm of liver, not specified as primary or secondary; C34.92 Malignant neoplasm of unspecified part of left bronchus or lung
CPT/HCPCS: 96413; J1642; J2405; J9351

== ENCOUNTER 2020-04-17 09:04 | Outpatient (CLI) | payer MEDICARE, MEDICAID, SELFPAY ==
[2020-04-17 09:05] VITALS: BMI 37.0
[2020-04-17 09:56] LABS: Basophils % 0.7 % (0.1-2.0); Eosinophils # 0.3 K/mm3 (0.0-0.4); Hematocrit 26.4 % (37.0-47.0); Hemoglobin 8.5 g/dL (12.2-16.2); Lymphocytes # 1.2 K/mm3 (0.7-4.5); Lymphocytes % 22.6 % (10-50); Mean Corpuscular HGB Conc 32.3 g/dL (31.8-35.4); Mean Corpuscular Hemoglobin 31.5 pg (27.0-31.2); Mean Corpuscular Volume 97.5 fl (81-99); Mean Platelet Volume 8.1 fl (7.4-10.4); Monocytes # 0.2 K/mm3 (0.1-1.0); Monocytes % 3.6 % (1.7-9.3); Neutrophils # 3.6 K/mm3 (1.8-7.8); Neutrophils % 68.2 % (37.0-80.0); Platelet Count 93 K/mm3 (142-424); Red Blood Count 2.71 M/mm3 (4.20-5.40); Red Cell Distribution Width 16.6 % (11.5-17.5); White Blood Count 5.3 K/mm3 (4.8-10.8)
[2020-04-17 10:16] VITALS: BP 123/67; PULSE 98; RESP 20; TEMP 36.6; O2SAT 97
[2020-04-17 10:40] VITALS: BP 111/64; PULSE 102; RESP 20; O2SAT 98
[2020-04-17 11:15] VITALS: BP 128/69; PULSE 99; RESP 20; O2SAT 97
[2020-04-17 11:21] VITALS: BP 134/72; PULSE 100; RESP 20; O2SAT 98
== END 2020-04-17 11:21 | disposition home or self-care (01) ==
LOC: INF 09:04
PROVIDERS: Visit Provider Internal Medicine Medical Oncology
DX: Z51.11 Encounter for antineoplastic chemotherapy (principal); C34.92 Malignant neoplasm of unspecified part of left bronchus or lung; C22.9 Malignant neoplasm of liver, not specified as primary or secondary
CPT/HCPCS: 85025; 96413; J1642; J2405; J9351

== ENCOUNTER 2020-04-24 09:55 | Outpatient (CLI) | payer MEDICARE, MEDICAID, SELFPAY ==
[2020-04-24 09:57] VITALS: BMI 37.0
[2020-04-24 10:20] LABS: Basophils % 0.2 % (0.1-2.0); Eosinophils # 0.2 K/mm3 (0.0-0.4); Eosinophils % 7.8 % (0.1-12.0); Lymphocytes # 0.6 K/mm3 (0.7-4.5); Mean Corpuscular Hemoglobin 32.3 pg (27.0-31.2); Mean Corpuscular Volume 94.9 fl (81-99); Mean Platelet Volume 9.6 fl (7.4-10.4); Monocytes % 1.4 % (1.7-9.3); Neutrophils # 1.6 K/mm3 (1.8-7.8); Neutrophils % 65.5 % (37.0-80.0); Red Blood Count 1.94 M/mm3 (4.20-5.40); Red Cell Distribution Width 16.6 % (11.5-17.5); White Blood Count 2.4 K/mm3 (4.8-10.8)
[2020-04-24 10:23] LABS: Chloride 99 mmol/L (98-107)
[2020-04-24 10:24] LABS: Potassium 5.6 mmoL/L (3.5-5.1); Sodium 133 mmol/L (136-145)
[2020-04-24 10:26] LABS: Alanine Aminotransferase 17 U/L (12-78); Alkaline Phosphatase 65 U/L (38-126); Aspartate Amino Transferase 22 U/L (14-36); Bilirubin,Total 0.7 mg/dl (0.2-1.3); Blood Urea Nitrogen 67 mg/dl (7-17); Creatinine Clearance Estimated 18 mL/min (50-200); Estimated Glomerular Filt Rate 8 ml/min (>60); GFR (African American) 10 ML/MIN (>60)
[2020-04-24 10:27] LABS: Albumin/Globulin Ratio 1.1 (1.1-1.8); Anion Gap 25.6 mEq/L (5-15); Calcium 9.1 mg/dl (8.4-10.2); Carbon Dioxide 14 mmol/L (22.0-30.0); Globulin 3.6 g/dL (1.3-3.2); Glucose 99 mg/dl (74-100); Total Protein,Serum 7.6 g/dl (6.3-8.2)
[2020-04-24 10:28] LABS: Hemoglobin 6.3 g/dL (12.2-16.2)
[2020-04-24 10:29] LABS: Hematocrit 18.5 % (37.0-47.0); Platelet Count 15 K/mm3 (142-424)
--- NOTE | 2020-04-24 11:05 | PC.NURSE ---
1105-spoke with ramses rn in the ed about transferring pt to ed for evaluation; no room assignment at this time
--- NOTE | 2020-04-24 11:35 | PC.NURSE ---
1135-took pt to ed room 4 for further evaluation; gave bedside report to cristóbal jane.
== END 2020-04-24 11:30 | disposition still patient (30) ==
LOC: INF 09:56
PROVIDERS: Visit Provider Internal Medicine Medical Oncology
DX: C34.90 Malignant neoplasm of unspecified part of unspecified bronchus or lung (principal)
CPT/HCPCS: 80053; 85025

== ENCOUNTER 2020-04-24 11:33 | Emergency (ER) | payer MEDICARE, MEDICAID, SELFPAY ==
[2020-04-24 11:36] VITALS: BP 92/47; PULSE 92; RESP 18; TEMP 36.6; O2SAT 98; BMI 36.7
--- NOTE | 2020-04-24 11:39 | HMH.EDGENADL ---
ED Disposition Clinical Impression: Hyperkalemia, Dehydration, Thrombocytopenia Acute kidney failure Qualifiers: Acute renal failure type: unspecified Qualified Code(s): N17.9 - Acute kidney failure, unspecified Diarrhea Qualifiers: Diarrhea type: unspecified type Qualified Code(s): R19.7 - Diarrhea, unspecified Disposition: Xfer Short-Term Hosp Condition on Discharge: Fair Referrals: Spenser Merritt [Primary Care Provider] - Forms: Transfer Record - ED - Critical Care Critical Care Time: No Attestation: On , the high probability of a clinically significant, sudden or life threatening deterioration of the following system(s) required my full and direct attention, intervention and personal management. The time I documented below is in addition to time spent performing reported procedures but includes the following listed in this critical care notation. Medical Decision Making - Medical Records MR Comment: 55-year-old female with a history of cancer on chemotherapy, A. fib on Eliquis, CHF, type 2 diabetes, hyperlipidemia, hypertension, presents the emergency department from the [facility] with low platelets and increasing weakness over the last couple of days. She arrives to the ED hemodynamically stable, appears nontoxic, and is answering all questions appropriately. Daughter also complains that she has been intermittently confused recently. Given that she is on blood thinners and may have had a fall out of bed, will get a CT head, will also check coags and urine, and reassess. Pressure systolic 100 here, however daughter says it runs low, will give a 500 cc bolus and reassess. On reassessment, patient remains well. Her labs are showing a creatinine of 5.3, previously was 0.8 on April 03. BUN is also elevated. Platelets at 15, previously 90. Her potassium is 5.6, EKG did not show any changes from previous. She is nontoxic, no fever here or at home, but she does have decreased white blood cells and neutropenia. She is not on an VENICE or ARB at home per medication review. She likely needs gentle fluid hydration, however with her renal status we cannot keep her here. I spoke to the medicine doctor and she will need to be transferred. Dr. Thorpe at [facility] has accepted her for transfer. She is stable on transfer. - Domenico Inquiry Pt receiving controlled substance: No Vital Signs: 04/24/20 11:36 04/24/20 12:36 04/24/20 13:19 Temperature 98 F Temperature Source Oral Pulse Rate Pulse Rate [Left Radial] 92 H 88 85 Respiratory Rate 18 Blood Pressure Blood Pressure [Right Arm] 92/47 L 90/48 L 95/59 L Blood Pressure Mean [Right Arm] 62 62 71 Blood Pressure Source [Right Arm] Automatic Cuff Blood Pressure Position Blood Pressure Position [Right Arm] Sitting Sitting Sitting 02 Sat by Pulse Oximetry 98 100 Oxygen Delivery Method Room Air Room Air 04/24/20 14:19 04/24/20 15:30 04/24/20 15:57 Temperature 98 F Temperature Source Oral Pulse Rate 78 Pulse Rate [Left Radial] 87 88 Respiratory Rate 18 Blood Pressure 92/43 L Blood Pressure [Right Arm] 90/60 L 92/43 L Blood Pressure Mean [Right Arm] 70 59 Blood Pressure Source [Right Arm] Automatic Cuff Blood Pressure Position Sitting Blood Pressure Position [Right Arm] Sitting Sitting 02 Sat by Pulse Oximetry 96 Oxygen Delivery Method Room Air Room Air - Lab Data Lab Results 04/24/20 12:35: Lactate 2.6 H 04/24/20 12:35: Blood Type O Negative, Antibody Screen Negative 04/24/20 13:40: Digoxin < 0.40 04/24/20 13:40: PT 14.2 H, INR 1.41 H, APTT 34.9 H Orders (Tests/Meds): ED MEDICATIONS Discontinued Medications Generic Name Dose Route Start Last Admin Trade Name Freq PRN Reason Stop Dose Admin Lactated Ringer's 500 mls @ 999 mls/hr 04/24/20 12:15 04/24/20 12:50 Lactated Ringer's 1000 Ml Bag IV 04/24/20 12:45 999 mls/hr .Q31M [facility] Administration ORDERS Category Date Time Status
--- NOTE | 2020-04-24 12:06 | CT_ITS ---
PROCEDURE: CT HEAD/BRAIN WO CON CLINICAL INDICATION: fall Posttraumatic pain, Head injury with headache/pain, contusion, abrasion or hematoma COMPARISON: CT HEAD/BRAIN WO CON from 03/12/2020 TECHNIQUE: Axial images obtained. All CT scans at the facility use one or more dose reduction, viz: automated exposure control, ma/kV adjustment per patient size (including targeted exams where dose is matched to indication, i.e. head), or iterative reconstruction technique. FINDINGS: There is a large area of encephalomalacia in the right frontal and temporal and parietal lobe. There is some dystrophic calcification in the right basal ganglia. No midline shift, mass effect, intracranial hemorrhage, or hydrocephalus is evident. There are some low-density changes along the right cerebellar hemisphere posteriorly similar to the previous exam. Mild mucosal thickening involves the left maxillary sinus. IMPRESSION: 1. No acute intracranial findings. 2. Large area of encephalomalacia in the right middle cerebral artery territory consistent with old MCA infarction Dictated by: eFliz Parmar MD 04/24/2020 13:49 Electronically signed by Feliz Parmar MD in [place] 04/24/2020 13:49
[2020-04-24 12:36] VITALS: BP 90/48; PULSE 88
--- NOTE | 2020-04-24 12:50 | PC.NURSE ---
pt to CT
[2020-04-24 13:06] LABS: Lactic Acid 2.6 mmol/L (0.7-2.1)
--- NOTE | 2020-04-24 13:09 | PC.NURSE ---
Pt returned from rad.
[2020-04-24 13:19] VITALS: BP 95/59; PULSE 85; O2SAT 100
--- NOTE | 2020-04-24 13:32 | PC.NURSE ---
calling dr holland at this time
--- NOTE | 2020-04-24 13:33 | PC.NURSE ---
Dr Jimenes speaking with Dr Ray at this time.
--- NOTE | 2020-04-24 13:51 | PC.NURSE ---
Calling [facility] at this time
--- NOTE | 2020-04-24 14:00 | PC.NURSE ---
Hospitalist to return call.
[2020-04-24 14:03] LABS: Activated Partial Thrombo Time 34.9 seconds (23.6-34.0); INR 1.41 (0.9-1.1); Prothrombin Time 14.2 seconds (9.4-11.8)
[2020-04-24 14:13] LABS: Digoxin < 0.40 ng/ml (0.2-2.00)
--- NOTE | 2020-04-24 14:15 | ECG_ITS ---
APPROVED REPORT Exam: Resting ECG HR:85 bpm ECG Measurements Heart Rate 85 AXES DE 176 P 84 QRSd 86 QRS 18 QT 402 T 61 QTc 478 <Conclusion> Normal sinus rhythm Low voltage QRS Nonspecific ST and T wave abnormality Prolonged QT Abnormal ECG Electronically signed by : Alexis Schwab, 04/25/2020 15:39:43
[2020-04-24 14:19] VITALS: BP 90/60; PULSE 87; O2SAT 96
--- NOTE | 2020-04-24 14:34 | PC.NURSE ---
Hospitalist at [facility] has not returned call. suggests calling [employer] at this time. Spoke with Virgil at call center, she stated she would be calling back momentarily once she finished up the previous call she as on.
--- NOTE | 2020-04-24 14:39 | PC.NURSE ---
Virgil returned call. Paging ED physician at this time.
--- NOTE | 2020-04-24 14:45 | PC.NURSE ---
GHULAM HENRY spoke with Dr. Bishop at [facility], [facility] is on Divert
--- NOTE | 2020-04-24 15:10 | PC.NURSE ---
calling [facility] at this time.
--- NOTE | 2020-04-24 15:12 | PC.NURSE ---
Spoke with access center at [facility], kst operator stated that there was a waiting list for floor beds. Stated she didn't know when there would be discharges but she would go ahead and have the physician paged.
--- NOTE | 2020-04-24 15:15 | PC.NURSE ---
[facility] just returned call.
--- NOTE | 2020-04-24 15:20 | PC.NURSE ---
[facility] Dr. Conn has returned call at this time.
[2020-04-24 15:30] VITALS: BP 92/43; PULSE 88
--- NOTE | 2020-04-24 15:33 | PC.NURSE ---
notified [facility] [facility] of transport of pt called radiology to request a disc on pt
--- NOTE | 2020-04-24 15:49 | PC.NURSE ---
report called to floor
[2020-04-24 15:57] VITALS: BP 92/43; PULSE 78; RESP 18; TEMP 36.6; O2SAT 98
[2020-04-24 16:51] LABS: Reflex Lactic Add Lactic Reflex
[2020-04-27 08:36] LABS: Levetiracetam (Keppra) 75.5 ug/mL (10.0-40.0)
== END 2020-04-24 15:59 | disposition short-term general hospital (02) ==
PROVIDERS: Emergency Provider Emergency Medicine; PCP Family Medicine
DX: E86.0 Dehydration (principal); E87.5 Hyperkalemia; D69.6 Thrombocytopenia, unspecified; N17.9 Acute kidney failure, unspecified; I48.91 Unspecified atrial fibrillation; E11.9 Type 2 diabetes mellitus without complications; I10 Essential (primary) hypertension; E78.5 Hyperlipidemia, unspecified; Z88.7 Allergy status to serum and vaccine
CPT/HCPCS: 36415; 70450; 80053; 80162; 80177; 83605; 85025; 85610; 85730; 86850; 87040; 93005; 96365; 99284; 99285

== ENCOUNTER 2020-05-18 14:11 | Outpatient (CLI) | payer MEDICARE, MEDICAID, SELFPAY ==
[2020-05-18 14:16] VITALS: BMI 30.9
[2020-05-18 14:29] LABS: Basophils % 0.3 % (0.1-2.0); Eosinophils # 0.1 K/mm3 (0.0-0.4); Eosinophils % 0.5 % (0.1-12.0); Hematocrit 24.2 % (37.0-47.0); Lymphocytes % 9.8 % (10-50); Mean Corpuscular HGB Conc 31.8 g/dL (31.8-35.4); Mean Corpuscular Hemoglobin 28.7 pg (27.0-31.2); Mean Corpuscular Volume 90.2 fl (81-99); Monocytes # 0.5 K/mm3 (0.1-1.0); Monocytes % 5.2 % (1.7-9.3); Neutrophils # 8.7 K/mm3 (1.8-7.8); Neutrophils % 84.2 % (37.0-80.0); Platelet Count 370 K/mm3 (142-424); Red Blood Count 2.69 M/mm3 (4.20-5.40); Red Cell Distribution Width 17.1 % (11.5-17.5); White Blood Count 10.3 K/mm3 (4.8-10.8)
--- NOTE | 2020-05-18 14:29 | PC.NURSE ---
1415 R port accessed/ CMP and CBC labs drawn as ordered and transported to lab. Patient to see Dr. Duong in office at this time.
[2020-05-18 14:30] LABS: Hemoglobin 7.7 g/dL (12.2-16.2)
[2020-05-18 14:38] LABS: Alanine Aminotransferase 35 U/L (12-78); Albumin Level 3.6 g/dl (3.5-5.0); Albumin/Globulin Ratio 0.8 (1.1-1.8); Alkaline Phosphatase 189 U/L (38-126); Anion Gap 15.2 mEq/L (5-15); Aspartate Amino Transferase 54 U/L (14-36); Bilirubin,Total 0.5 mg/dl (0.2-1.3); Blood Urea Nitrogen 23 mg/dl (7-17); Calcium 9.5 mg/dl (8.4-10.2); Carbon Dioxide 28 mmol/L (22.0-30.0); Chloride 94 mmol/L (98-107); Creatinine Clearance Estimated 67 mL/min (50-200); Estimated Glomerular Filt Rate 46 ml/min (>60); GFR (African American) 56 ML/MIN (>60); Globulin 4.4 g/dL (1.3-3.2); Glucose 82 mg/dl (74-100); Potassium 4.2 mmoL/L (3.5-5.1); Sodium 133 mmol/L (136-145)
[2020-05-18 15:17] VITALS: BP 93/65; PULSE 109; RESP 18; TEMP 36.2; O2SAT 93
[2020-05-18 15:50] VITALS: BP 94/69; PULSE 90; RESP 18; TEMP 36.4; O2SAT 94
== END 2020-05-18 15:55 | disposition home or self-care (01) ==
LOC: INF 14:11
PROVIDERS: Visit Provider Internal Medicine Medical Oncology
DX: C34.90 Malignant neoplasm of unspecified part of unspecified bronchus or lung (principal)
CPT/HCPCS: 80053; 85025; 96360; J1642